=== PATIENT | female | born 1975 | race Caucasian/White ===

== ENCOUNTER 2018-10-29 07:15 | Observation (INO) | payer OTHER ==
[2018-10-29] MEDS ORDERED: ASPIRIN 81 MG PO STA (07:40)
[2018-10-29] MEDS ORDERED: NITROGLYCERIN OINT 1 INCH/GM PACKET TOPICAL STA (07:40)
--- NOTE | 2018-10-29 07:44 | ED ---
General Adult HPI - General Chief complaint: Chest Pain Stated complaint: chest pain Time Seen by Provider: 10/29/18 07:15 Source: patient, RN notes reviewed Mode of arrival: wheelchair Limitations: no limitations - History of Present Illness Initial comments: This is a 43-year-old female who presents emergency department without any significant past medical history. Patient states she does have positive family history of heart disease her father had a heart attack. A 61. Patient states she started having chest pain on Saturday while shopping and it has been occasionally intermittent since then however this morning she woke up and she had extremely heavy and painful left arm she denies any weakness or numbness in the arm chest pain currently shoulder down. Patient states she did not notice any chest pain or heaviness morning. Patient denies any difficulty breathing or shortness of breath. Patient denies any diaphoretic episodes. Patient denies any nausea vomiting. Patient denies any abdominal pain. Patient denies any recent fever chills or cough. Patient denies any leg swelling or calf tenderness. - Related Data Home Medications Medication Instructions Recorded Confirmed Albuterol Sulfate [Proair Hfa] 1 - 2 puff INHALATION RT-QID PRN 10/29/18 10/29/18 Budesonide/Formoterol Fumarate 2 puff INHALATION RT-BID PRN 10/29/18 10/29/18 [Symbicort 160-4.5 Mcg Inhaler] Allergies Allergy/AdvReac Type Severity Reaction Status Date / Time No Known Allergies Allergy Verified 10/29/18 07:24 Review of Systems ROS Statement: Those systems with pertinent positive or pertinent negative responses have been documented in the HPI. ROS Other: All systems not noted in ROS Statement are negative. Past Medical History Past Medical History: No Reported History History of Any Multi-Drug Resistant Organisms: None Reported Past Surgical History: Breast Surgery Additional Past Surgical History / Comment(s): breast augmentation Past Psychological History: No Psychological Hx Reported Smoking Status: Never smoker Past Alcohol Use History: Occasional, Rare Past Drug Use History: None Reported General Exam - General Exam Comments Initial Comments: GENERAL: Patient is well-developed and well-nourished. Patient is nontoxic and well- hydrated and is in distress. ENT: Neck is soft and supple. No significant lymphadenopathy is noted. Oropharynx is clear. Moist mucous membranes. Neck has full range of motion without eliciting any pain. EYES: The sclera were anicteric and conjunctiva were pink and moist. Extraocular movements were intact and pupils were equal round and reactive to light. Eyelids were unremarkable. PULMONARY: Unlabored respirations. Good breath sounds bilaterally. No audible rales rhonchi or wheezing was noted. CARDIOVASCULAR: There is a regular rate and rhythm without any murmurs gallops or rubs. ABDOMEN: Soft and nontender with normal bowel sounds. No palpable organomegaly was noted. There is no palpable pulsatile mass. SKIN: Skin is clear with no lesions or rashes and otherwise unremarkable. NEUROLOGIC: Patient is alert and oriented x3. Cranial nerves II through XII are grossly intact. Motor and sensory are also intact. Normal speech, volume and content. Symmetrical smile. MUSCULOSKELETAL: Normal extremities with adequate strength and full range of motion. No lower extremity swelling or edema. No calf tenderness. LYMPHATICS: No significant lymphadenopathy is noted PSYCHIATRIC: Normal psychiatric evaluation. Limitations: no limitations Course Vital Signs 10/29/18 10/29/18 07:19 07:37 Temperature 97.5 F L Pulse Rate 95 94 Respiratory 16 16 Rate Blood Pressure 144/99 139/87 O2 Sat by Pulse 98 98 Oximetry Medical Decision Making - Medical Decision Making EKG shows a normal sinus rhythm at 80 bpm VT interval is 148 QRSs 84 QT interval 34 QTC is 464. Patient's EKG shows no ST segment elevation or depression or T wave abnormalities are noted. Chest x-ray shows no acute abnormality. I will begin to reevaluate the patient patient stated after she received nitro paste her pain in her arm went away completely. I spoke with sounds physician's and they accepted the patient admitted the [facility] ent wrote admitting orders. I started heparin and continued heparin and aspirin and Nitropaste on the floor. I consulted cardiology - Lab Data Result diagrams: 10/29/18 07:35 10/29/18 07:35 Lab Results 10/29/18 10/29/18 10/29/18 Range/Units 07:35 07:35 07:35 WBC 9.2 (3.8-10.6) k/uL RBC 4.93 (3.80-5.40) m/uL Hgb 12.9 (11.4-16.0) gm/dL Hct 38.9 (34.0-46.0) % MCV 78.9 L (80.0-100.0) fL MCH 26.1 (25.0-35.0) pg MCHC 33.1 (31.0-37.0) g/dL RDW 15.2 (11.5-15.5) % Plt Count 494 H (150-450) k/uL Neutrophils % 72 % Lymphocytes % 19 % Monocytes % 4 % Eosinophils % 2 % Basophils % 1 % Neutrophils # 6.6 (1.3-7.7) k/uL Lymphocytes # 1.8 (1.0-4.8) k/uL Monocytes # 0.4 (0-1.0) k/uL Eosinophils # 0.2 (0-0.7) k/uL Basophils # 0.1 (0-0.2) k/uL PT 9.6 (9.0-12.0) sec INR 0.9 (<1.2) APTT 25.2 (22.0-30.0) sec Sodium 139 (137-145) mmol/L Potassium 4.3 (3.5-5.1) mmol/L Chloride 107 (98-107) mmol/L Carbon Dioxide 21 L (22-30) mmol/L Anion Gap 11 mmol/L BUN 17 (7-17) mg/dL Creatinine 0.66 (0.52-1.04) mg/dL Est GFR (CKD-EPI)AfAm >90 (>60 ml/min/1.73 sqM) Est GFR (CKD-EPI)NonAf >90 (>60 ml/min/1.73 sqM) Glucose 111 H (74-99) mg/dL Calcium 9.2 (8.4-10.2) mg/dL Magnesium 2.3 (1.6-2.3) mg/dL Total Bilirubin 0.5 (0.2-1.3) mg/dL AST 23 (14-36) U/L ALT 25 (9-52) U/L Alkaline Phosphatase 100 (38-126) U/L Troponin I (0.000-0.034) ng/mL Total Protein 7.4 (6.3-8.2) g/dL Albumin 4.3 (3.5-5.0) g/dL 10/29/18 Range/Units 07:35 WBC (3.8-10.6) k/uL RBC (3.80-5.40) m/uL Hgb (11.4-16.0) gm/dL Hct (34.0-46.0) % MCV (80.0-100.0) fL MCH (25.0-35.0) pg MCHC (31.0-37.0) g/dL RDW (11.5-15.5) % Plt Count (150-450) k/uL Neutrophils % % Lymphocytes % % Monocytes % % Eosinophils % % Basophils % % Neutrophils # (1.3-7.7) k/uL Lymphocytes # (1.0-4.8) k/uL Monocytes # (0-1.0) k/uL Eosinophils # (0-0.7) k/uL Basophils # (0-0.2) k/uL PT (9.0-12.0) sec INR (<1.2) APTT (22.0-30.0) sec Sodium (137-145) mmol/L Potassium (3.5-5.1) mmol/L Chloride (98-107) mmol/L Carbon Dioxide (22-30) mmol/L Anion Gap mmol/L BUN (7-17) mg/dL Creatinine (0.52-1.04) mg/dL Est GFR (CKD-EPI)AfAm (>60 ml/min/1.73 sqM) Est GFR (CKD-EPI)NonAf (>60 ml/min/1.73 sqM) Glucose (74-99) mg/dL Calcium (8.4-10.2) mg/dL Magnesium (1.6-2.3) mg/dL Total Bilirubin (0.2-1.3) mg/dL AST (14-36) U/L ALT (9-52) U/L Alkaline Phosphatase (38-126) U/L Troponin I <0.012 (0.000-0.034) ng/mL Total Protein (6.3-8.2) g/dL Albumin (3.5-5.0) g/dL Critical Care Time Critical Care Time: Yes Total Critical Care Time: 35 Disposition Clinical Impression: Unstable angina pectoris Disposition: ADMITTED IP TO THIS [facility] Referrals: None,Stated [Primary Care Provider] - 1-2 days Time of Disposition: 09:14
[2018-10-29 07:58] LABS: Basophils # (A) 0.1 k/uL (0-0.2); Basophils % (A) 1 %; Eosinophils # (A) 0.2 k/uL (0-0.7); Eosinophils % (A) 2 %; HCT 38.9 % (34.0-46.0); HGB 12.9 gm/dL (11.4-16.0); Lymphocytes # (A) 1.8 k/uL (1.0-4.8); Lymphocytes % (A) 19 %; MCH 26.1 pg (25.0-35.0); MCHC 33.1 g/dL (31.0-37.0); MCV 78.9 fL (80.0-100.0); Mean Platelet Volume 7.2; Monocytes # (A) 0.4 k/uL (0-1.0); Monocytes % (A) 4 %; Neutrophils # (A) 6.6 k/uL (1.3-7.7); Neutrophils % (A) 72 %; Platelet Count 494 k/uL (150-450); RBC 4.93 m/uL (3.80-5.40); RDW 15.2 % (11.5-15.5); WBC 9.2 k/uL (3.8-10.6)
[2018-10-29 08:04] LABS: INR 0.9 (<1.2); Partial Thromboplastin Time 25.2 sec (22.0-30.0); Prothrombin Time 9.6 sec (9.0-12.0)
[2018-10-29 08:20] LABS: ALT 25 U/L (9-52); AST 23 U/L (14-36); African American GFR (CKD) >90 (>60 ml/min/1.73 sqM); Albumin 4.3 g/dL (3.5-5.0); Alkaline Phosphatase 100 U/L (38-126); Anion Gap 11 mmol/L; Blood Urea Nitrogen 17 mg/dL (7-17); Calcium 9.2 mg/dL (8.4-10.2); Carbon Dioxide 21 mmol/L (22-30); Chloride 107 mmol/L (98-107); Glucose 111 mg/dL (74-99); Magnesium 2.3 mg/dL (1.6-2.3); Potassium 4.3 mmol/L (3.5-5.1); Sodium 139 mmol/L (137-145); Total Bilirubin 0.5 mg/dL (0.2-1.3); Total Protein 7.4 g/dL (6.3-8.2)
--- NOTE | 2018-10-29 08:27 | XR ---
EXAMINATION TYPE: XR chest 2V DATE OF EXAM: 10/29/2018 COMPARISON: None INDICATION: Chest pain, history of asthma TECHNIQUE: Frontal and lateral views of the chest are obtained. FINDINGS: The heart size is normal. The pulmonary vasculature is normal. The lungs are clear. There is elevation of the right diaphragm. EKG leads overlie the chest. IMPRESSION: 1. No acute pulmonary process.
[2018-10-29] MEDS ORDERED: HEPARIN SODIUM,PORCINE 5,000 UNIT/ML 1 ML VIAL IV ONE (09:12)
[2018-10-29] MEDS ORDERED: NITROGLYCERIN SL TABS 0.4 MG TAB SUBLINGUAL PRN (09:14)
[2018-10-29] MEDS: HEPARIN SOD,PORK IN 0.45% NACL 25,000 UNIT in 0.45% NACL 1 250ML.BAG IV SCH (09:31)
--- NOTE | 2018-10-29 10:52 | P.CRDCN ---
History of Present Illness History of present illness: This is a pleasant 43-year-old female with significant past medical history other than morbid obesity and family history of premature coronary artery disease in her father. We have been asked to see her in consultation secondary to chest discomfort. She states she first developed discomfort in the left precordial region on Saturday was shopping at the grocery store. Then again this morning she woke up with the pain in the left precordial region with radiation into the left shoulder and down the left arm. The left arm felt numb and tingly. Not associated with shortness of breath, dizziness, nausea, vomiting, palpitations or diaphoresis. Currently chest pain free. EKG reveals sinus mechanism heart rate of [address] or T wave abnormalities noted. Chest x-ray negative for an acute cardiopulmonary process. Laboratory data reviewed, platelets 494, sodium 139, potassium 4.3, creatinine 0.66, magnesium 2.3 and troponin negative 1. She takes no daily cardiac medications and has never undergone cardiac stress testing in the past. At the time of my exam: CONSTITUTIONAL: Denies fever. Denies chills. EYES: Denies blurred vision. Denies vision changes. Denies eye pain. EARS, NOSE, MOUTH & THROAT: Denies headache. Denies sore throat. Denies ear pain. CARDIOVASCULAR: Denies chest pain. Denies shortness of breath. Denies orthopnea. Denies PND. Denies palpitations. RESPIRATORY: Denies cough. GASTROINTESTINAL: Denies abdominal pain. Denies diarrhea. Denies constipation. Denies nausea. Denies vomiting. MUSCULOSKELETAL: Denies myalgias. INTEGUMENTARY: Denies pruitis. Denies rash. NEUROLOGIC: Denies numbness. Denies tingling. Denies weakness. PSYCHIATRIC: Denies anxiety. Denies depression. ENDOCRINE: Denies fatigue. Denies weight change. Denies polydipsia. Denies polyurina. GENITOURINARY: Denies burning, hematuria or urgency with micturation. HEMATOLOGIC: Denies history of anemia. Denies bleeding. Blood pressure 128/87 heart rate 87 afebrile maintaining oxygen saturation on nasal cannula GENERAL: This is a 43-year-old female in no apparent distress at the time of my examination. Obese. HEENT: Head is atraumatic, normocephalic. Pupils are equal, round. Sclerae anicteric. Conjunctivae are clear. Mucous membranes of the mouth are moist. Neck is supple. There is no jugular venous distention. No carotid bruit is heard. LUNGS: Clear to auscultation no wheezes, rales or rhonchi. No chest wall tenderness is noted on palpation or with deep breathing. HEART: Regular rate and rhythm without murmurs, rubs or gallops. S1 and S2 heard. ABDOMEN: Soft, nontender. Bowel sounds are heard. No organomegaly noted. EXTREMITIES: No evidence of peripheral edema and no calf tenderness noted. VASCULAR: Radial and dorsalis pedis pulses palpated, no evidence of clubbing. NEUROLOGIC: Patient is awake, alert and oriented x3. ASSESSMENT Chest pain, atypical. Morbid obesity, BMI 42 PLAN Patient is seen and examined sitting up in no acute distress. Currently chest pain-free. Continue to obtain serial cardiac enzymes to rule out an acute event. Check lipid panel. Obtain 2-D echocardiogram and Doppler study to assess cardiac structure and function. Depending and diagnostic tests findings we will move forward with stress testing versus coronary angiography. Nothing by mouth after midnight tonight. Thank you kindly for this consultation. Nurse Practitioner note has been reviewed, I agree with a documented findings and plan of care. Patient was seen and examined. Past Medical History Past Medical History: No Reported History History of Any Multi-Drug Resistant Organisms: None Reported Past Surgical History: Breast Surgery Additional Past Surgical History / Comment(s): breast augmentation Past Psychological History: No Psychological Hx Reported Smoking Status: Never smoker Past Alcohol Use History: Occasional, Rare Past Drug Use History: None Reported Medications and Allergies Home Medications Medication Instructions Recorded Confirmed Type Albuterol Sulfate [Proair Hfa] 1 - 2 puff INHALATION RT-QID PRN 10/29/18 10/29/18 History Budesonide/Formoterol Fumarate 2 puff INHALATION RT-BID PRN 10/29/18 10/29/18 History [Symbicort 160-4.5 Mcg Inhaler] Allergies Allergy/AdvReac Type Severity Reaction Status Date / Time No Known Allergies Allergy Verified 10/29/18 07:24 Physical Exam Vitals: Vital Signs Temp Pulse Resp BP Pulse Ox 10/29/18 09:33 87 16 128/87 98 10/29/18 07:37 94 16 139/87 98 10/29/18 07:19 97.5 F L 95 16 144/99 98 Intake and Output 10/28/18 10/29/18 10/29/18 22:59 06:59 14:59 Other: Weight 117.027 kg Results 10/29/18 07:35 10/29/18 07:35 Cardiac Enzymes 10/29/18 10/29/18 Range/Units 07:35 07:35 AST 23 (14-36) U/L Troponin I <0.012 (0.000-0.034) ng/mL Coagulation 10/29/18 Range/Units 07:35 PT 9.6 (9.0-12.0) sec APTT 25.2 (22.0-30.0) sec CBC 10/29/18 Range/Units 07:35 WBC 9.2 (3.8-10.6) k/uL RBC 4.93 (3.80-5.40) m/uL Hgb 12.9 (11.4-16.0) gm/dL Hct 38.9 (34.0-46.0) % Plt Count 494 H (150-450) k/uL Comprehensive Metabolic Panel 10/29/18 Range/Units 07:35 Sodium 139 (137-145) mmol/L Potassium 4.3 (3.5-5.1) mmol/L Chloride 107 (98-107) mmol/L Carbon Dioxide 21 L (22-30) mmol/L BUN 17 (7-17) mg/dL Creatinine 0.66 (0.52-1.04) mg/dL Glucose 111 H (74-99) mg/dL Calcium 9.2 (8.4-10.2) mg/dL AST 23 (14-36) U/L ALT 25 (9-52) U/L Alkaline Phosphatase 100 (38-126) U/L Total Protein 7.4 (6.3-8.2) g/dL Albumin 4.3 (3.5-5.0) g/dL Current Medications Generic Name Dose Route Start Last Admin Trade Name Freq PRN Reason Stop Dose Admin Aspirin 325 mg 10/30/18 09:00 Aspirin PO DAILY JAYNE Heparin Sodium/Sodium Chloride 250 mls @ 10.006 mls/hr 10/29/18 09:15 10/29/18 09:31 25,000 unit/ Sodium Chloride IV 8.55 units/kg/hr .Q24H JAYNE 10.006 mls/hr Administration Protocol 8.55 UNITS/KG/HR Nitroglycerin 0.4 mg 10/29/18 09:14 Nitrostat SUBLINGUAL Q5M PRN Chest Pain Nitroglycerin 1 inch 10/29/18 12:00 Nitro-Bid Oint TOPICAL Q6HR JAYNE Intake and Output 10/28/18 10/29/18 10/29/18 22:59 06:59 14:59 Other: Weight 117.027 kg Patient Weight 10/30/18 06:59 Weight 117.027 kg 10/29/18 07:35 10/29/18 07:35
--- NOTE | 2018-10-29 12:01 | ECHOF ---
Referral Reason:cp MEASUREMENTS -------- HEIGHT: 165.1 cm WEIGHT: 117.0 kg BP: 128/87 RVIDd: 3.3 cm (< 3.3) IVSd: 1.1 cm (0.6 - 1.1) LVIDd: 4.5 cm (3.9 - 5.3) LVPWd: 1.0 cm (0.6 - 1.1) IVSs: 1.6 cm LVIDs: 3.0 cm LVPWs: 1.5 cm LA Diam: 3.8 cm (2.7 - 3.8) LAESV Index (A-L): 17.06 ml/m Ao Diam: 3.0 cm (2.0 - 3.7) AV Cusp: 2.1 cm (1.5 - 2.6) MV EXCURSION: 18.742 mm (> 18.000) MV EF SLOPE: 91 mm/s (70 - 150) EPSS: 0.6 cm MV E Hans: 0.77 m/s MV DecT: 233 ms MV A Hans: 0.84 m/s MV E/A Ratio: 0.91 FINDINGS -------- Sinus rhythm. This was a technically adequate study. The left ventricular size is normal. There is borderline concentric left ventricular hypertrophy. Overall left ventricular systolic function is normal with, an EF between 60 - 65 %. The right ventricle is normal in size. Normal LA size by volume 22+/-6 ml/m2. The right atrium is normal in size. Aneurysmal Interatrial septum. The aortic valve is trileaflet and appears structurally normal. The mitral valve is normal. The tricuspid valve appears structurally normal. The pulmonic valve was not well visualized. The aortic root size is normal. Normal inferior vena cava with normal inspiratory collapse consistent with estimated right atrial pre ssure of 5 mmHg. There is no pericardial effusion. CONCLUSIONS -------- 1. Sinus rhythm. 2. This was a technically adequate study. 3. The left ventricular size is normal. 4. There is borderline concentric left ventricular hypertrophy. 5. Overall left ventricular systolic function is normal with, an EF between 60 - 65 %. 6. The right ventricle is normal in size. 7. Normal LA size by volume 22+/-6 ml/m2. 8. The right atrium is normal in size. 9. Aneurysmal Interatrial septum. 10. The aortic valve is trileaflet and appears structurally normal. 11. The mitral valve is normal. 12. The tricuspid valve appears structurally normal. 13. The pulmonic valve was not well visualized. 14. The aortic root size is normal. 15. Normal inferior vena cava with normal inspiratory collapse consistent with estimated right atrial pressure of 5 mmHg. 16. There is no pericardial effusion. SUCCESS COACH: Kelli Aburto RDCS
[2018-10-29] MEDS: NITROGLYCERIN OINT 1 INCH/GM PACKET TOPICAL SCH ×3 (13:50→23:20)
[2018-10-29 13:58] VITALS: BMI 42.9
[2018-10-29] MEDS: ACETAMINOPHEN TAB 325 MG TAB PO PRN ×2 (14:41→23:21)
[2018-10-29] MEDS ORDERED: MORPHINE SULFATE 4 MG/ML SYRINGE IV PRN (17:08)
[2018-10-29] MEDS ORDERED: NALOXONE 0.4 MG/ML 1 ML VIAL IV PRN (17:08)
[2018-10-29] MEDS ORDERED: ALBUTEROL NEBULIZED 2.5 MG/3 ML INHALATION PRN (17:09)
--- NOTE | 2018-10-29 17:12 | P.HPIM ---
History of Present Illness H&P Date: 10/29/18 Chief Complaint: chest pain 43-year-old female with PMH of asthma and breast augmentation presents to the ED for chest pain. Patient reports that the pain began on Saturday while she was pushing a grocery cart. She described the pain as heaviness in her chest that lasted for 1-2 minutes.pain was 6-7 out of 10 in severity. Pain was nonradiating. There were no alleviating or aggravating factors. This morning, patient states that she woke up with shooting left arm pain that was persistent. Given that her father passed from an MN in his 60s, patient was worried and pro mpted the patient to go to the ED. Vision denies any headache, lower extremity edema, nausea or vomiting, fever or chills, cough, shortness of breath, palpitations, changes in urination or bowel habits. No changes in appetite or weight. She denies any dizziness, numbness/weakness/tingling of the extremities. In the ED, troponin was less than 0.0122 with EKG showing normal sinus rhythm and low voltage QRS. Chest x-ray was negative. CBC was unremarkable except for platelet count of 494. Cognition panel was negative. CMP showed a bicarbonate of 21, glucose of 111. Patient is admitted for chest pain, rule out acute coronary syndrome, cardiology is consulted. Review of Systems All systems: negative Past Medical History Past Medical History: Asthma Additional Past Medical History / Comment(s): Recently daily headaches, guadarrama's palsey, low back pain with R sided sciatica. History of Any Multi-Drug Resistant Organisms: None Reported Past Surgical History: Breast Surgery Additional Past Surgical History / Comment(s): breast augmentation Past Anesthesia/Blood Transfusion Reactions: No Reported Reaction Smoking Status: Never smoker - Past Family History Mother Family Medical History: COPD, Renal Disease Father Family Medical History: Myocardial Infarction (MN) Additional Family Medical History / Comment(s): Father of a MN at the age of 68yrs. Medications and Allergies Home Medications Medication Instructions Recorded Confirmed Type Albuterol Sulfate [Proair Hfa] 1 - 2 puff INHALATION RT-QID PRN 10/29/18 10/29/18 History Budesonide/Formoterol Fumarate 2 puff INHALATION RT-BID PRN 10/29/18 10/29/18 History [Symbicort 160-4.5 Mcg Inhaler] Allergies Allergy/AdvReac Type Severity Reaction Status Date / Time No Known Allergies Allergy Verified 10/29/18 07:24 Physical Exam Vitals: Vital Signs Temp Pulse Pulse Resp BP BP Pulse Ox 10/29/18 16:00 97.6 F 81 17 119/76 98 10/29/18 14:32 91 17 10/29/18 14:19 97.8 F 91 17 128/81 97 10/29/18 12:06 76 16 130/91 99 10/29/18 09:33 87 16 128/87 98 10/29/18 07:37 94 16 139/87 98 10/29/18 07:19 97.5 F L 95 16 144/99 98 Intake and Output 10/29/18 10/29/18 10/29/18 06:59 14:59 22:59 Other: Voiding Method Toilet Toilet Weight 117.027 kg General: [non toxic], [no distress], [appears at stated age] Derm: [warm], [dry] Head: [atraumatic], [normocephalic], [symmetric] Eyes: [EOMI], [no lid lag], [anicteric sclera] Mouth: [no lip lesion], [mucus membranes moist] Cardiovascular: [S1S2 reg], [no murmur], [positive posterior tibial pulse bilateral], Lungs: [CTA bilateral], [no rhonchi, no rales] , [no accessory muscle use] Abdominal: [soft], [ nontender to palpation], [no guarding], [no appreciable organomegaly] Ext: [no gross muscle atrophy], [no edema], [no contractures] Neuro: [ CN II-XI grossly intact], [no focal neuro deficits] Psych: [Alert], [oriented], [appropriate affect] Results CBC & Chem 7: 10/29/18 07:35 10/29/18 07:35 Labs: Abnormal Lab Results - Last 24 Hours (Table) 10/29/18 10/29/18 Range/Units 07:35 07:35 MCV 78.9 L (80.0-100.0) fL Plt Count 494 H (150-450) k/uL Carbon Dioxide 21 L (22-30) mmol/L Glucose 111 H (74-99) mg/dL Thrombosis Risk Factor Assmnt - Choose All That Apply Any of the Below Risk Factors Present?: Yes Each Factor Represents 1 point: Age 41-60 years, Obesity (BMI >25) Other Risk Factors: No Other congenital or acquired thrombophilia - If yes, enter type in comment: No Thrombosis Risk Factor Assessment Total Risk Factor Score: 2 Thrombosis Risk Factor Assessment Level: Low Risk Assessment and Plan Assessment: Assessment and Plan Chest pain, rule out acute coronary syndrome History of asthma Troponin less than 0.012 with EKG showing normal sinus rhythm with low-voltage QRS. Chest x-ray negative. Echocardiogram shows EF 60-65% with borderline LVH. Plans: Trend troponin/EKG to rule out ACS. Cardiology consulted, recommends possible stress tomorrow, nothing by mouth after midnight. Telemetry monitoring. Pain control with Tylenol or nitro patch, morphine as needed. Continue aspirin and heparin drip. Plans: Albuterol neb as needed for shortness of breath and wheezing. DVT prophylaxis: [Heparin drip] Discussed with: [Patient and family] Anticipated discharge: [1-2 days] Anticipated discharge place: [Home] A total of [45] minutes was spent on the care of this complex patient more than 50% of the time was spent in counseling and care coordination. Patient would like to remain full code at this time.
[2018-10-29] MEDS: HEPARIN SODIUM,PORCINE 5,000 UNIT/ML 1 ML VIAL IV PRN ×2 (17:39→19:27)
[2018-10-29 20:00] VITALS: RESP 18
[2018-10-30] MEDS: HEPARIN SOD,PORK IN 0.45% NACL 25,000 UNIT in 0.45% NACL 1 250ML.BAG IV SCH (04:25)
[2018-10-30] MEDS: NITROGLYCERIN OINT 1 INCH/GM PACKET TOPICAL SCH (04:27)
[2018-10-30 04:30] LABS: Cholesterol 203 mg/dL (<200); HDL Cholesterol 53 mg/dL (40-60); LDL Cholesterol,Calculated 137 mg/dL (0-99); Triglycerides 67 mg/dL (<150)
[2018-10-30] MEDS: ACETAMINOPHEN TAB 325 MG TAB PO PRN (08:32)
[2018-10-30] MEDS ORDERED: ASPIRIN 81 MG PO SCH (09:00)
[2018-10-30] MEDS ORDERED: ASPIRIN 325 MG TAB PO SCH (09:00)
--- NOTE | 2018-10-30 11:50 | P.PN ---
Subjective This is a pleasant 43-year-old female with significant past medical history other than morbid obesity and family history of premature coronary artery disease in her father. We have been asked to see her in consultation secondary to chest discomfort. Patient was seen and examined in no acute distress. She denies any further symptoms of chest discomfort. Serial cardiac enzymes are negative for ischemia. Echocardiogram reveals preserved LV systolic function with ejection fraction 60-65%. Blood pressure 128/79 heart rate 91 afebrile and maintaining oxygen saturation on room air. GENERAL: This is a 43-year-old female in no apparent distress at the time of my examination. Obese. HEENT: Head is atraumatic, normocephalic. Pupils are equal, round. Sclerae anicteric. Conjunctivae are clear. Mucous membranes of the mouth are moist. Neck is supple. There is no jugular venous distention. No carotid bruit is heard. LUNGS: Clear to auscultation no wheezes, rales or rhonchi. No chest wall tenderness is noted on palpation or with deep breathing. HEART: Regular rate and rhythm without murmurs, rubs or gallops. S1 and S2 heard. EXTREMITIES: No evidence of peripheral edema and no calf tenderness noted. ASSESSMENT Chest pain, atypical. An acute coronary event is ruled out. Discontinue heparin infusion. Morbid obesity, BMI 42 PLAN Proceed with stress echocardiogram to assess for stress induced ischemia. If normal she may be discharged from a cardiac perspective. Nurse Practitioner note has been reviewed, I agree with a documented findings and plan of care. Patient was seen and examined. Objective - Vital Signs Vital signs: Vital Signs Temp 98.0 F 10/30/18 07:05 Pulse 91 10/30/18 08:00 Resp 18 10/30/18 08:00 BP 128/79 10/30/18 07:05 Pulse Ox 99 10/30/18 07:05 Intake & Output 10/29/18 10/30/18 10/30/18 18:59 06:59 18:59 Intake Total 81.549 168.451 Balance 81.549 168.451 Weight 117.027 kg Intake: Intake, IV Titration 81.549 168.451 Amount Heparin Sod,Pork in 0.45% 81.549 168.451 NaCl 25,000 unit In 0.45 % NaCl 1 250ml.bag @ 8.55 UNITS/KG/HR 10.006 mls/ hr IV .Q24H [facility] Rx#: [id number] Other: Voiding Method Toilet Toilet Toilet # Voids 1 1 - Labs CBC & Chem 7: 10/29/18 07:35 10/29/18 07:35 Labs: Abnormal Lab Results - Last 24 Hours (Table) 10/29/18 10/30/18 Range/Units 03:49 01:59 APTT 56.2 H (22.0-30.0) sec Cholesterol 203 H (<200) mg/dL LDL Cholesterol, Calc 137 H (0-99) mg/dL
[2018-10-30 12:14] VITALS: BP 133/91; PULSE 98; TEMP 97.4
--- NOTE | 2018-10-30 13:37 | P.DS ---
Providers Date of admission: 10/29/18 09:16 Expected date of discharge: 10/30/18 Attending physician: Mimi Franklin MD Consults: 10/29/18 09:14 Consult Physician Urgent Consulting Provider: [facility] Consult Reason/Comments: Unstable angina Do you want consulting provider notified?: Yes Primary care physician: Stated None Hospital Course: 43-year-old female with PMH of asthma and breast augmentation presents to the ED for chest pain. Patient reports that the pain began on Saturday while she was pushing a grocery cart. She described the pain as heaviness in her chest that lasted for 1-2 minutes.pain was 6-7 out of 10 in severity. Pain was nonradiating. There were no alleviating or aggravating factors. This morning, patient states that she woke up with shooting left arm pain that was persistent. Given that her father passed from an AL in his 60s, patient was worried and prompted the patient to go to the ED. Vision denies any headache, lower ex tremity edema, nausea or vomiting, fever or chills, cough, shortness of breath, palpitations, changes in urination or bowel habits. No changes in appetite or weight. She denies any dizziness, numbness/weakness/tingling of the extremities. In the ED, troponin was less than 0.0122 with EKG showing normal sinus rhythm and low voltage QRS. Chest x-ray was negative. CBC was unremarkable except for platelet count of 494. Cognition panel was negative. CMP showed a bicarbonate of 21, glucose of 111. Patient is admitted for chest pain, rule out acute coronary syndrome, cardiology is consulted. Troponin was less than 0.0123 with EKG showing normal sinus rhythm. Echocardiogram showed EF 60-65% with borderline concentric LVH. Stress test was done and was negative. Cardiology was consulted and cleared the patient for discharge. Patient seen and examined. No acute events overnight. Patient denies any chest pain, shortness of breath or palpitations. General: [non toxic], [no distress], [appears at stated age] Derm: [warm], [dry] Head: [atraumatic], [normocephalic], [symmetric] Eyes: [EOMI], [no lid lag], [anicteric sclera] Mouth: [no lip lesion], [mucus membranes moist] Cardiovascular: [S1S2 reg], [no murmur], [positive DP pulse bilateral] Lungs: [CTA bilateral], [no rhonchi, no rales] , [no accessory muscle use] Abdominal: [soft], [ nontender to palpation], [no guarding], [no appreciable organomegaly] Ext: [no gross muscle atrophy], [no edema], [no contractures] Neuro: [no focal neuro deficits] Psych: [Alert], [oriented], [appropriate affect] Assessment and Plan Chest pain, rule out acute coronary syndrome History of asthma Troponin less than 0.012 x 3 with EKG showing normal sinus rhythm with low- voltage QRS. Chest x-ray negative. Echocardiogram shows EF 60-65% with borderline LVH. Stress test negative. Plans: ACS ruled out. Telemetry monitoring. Pain control with Tylenol as needed. Continue aspirin and DC heparin drip. Plans: Albuterol neb as needed for shortness of breath and wheezing. Stress test negative. Patient cleared for discharge. Pertinent Studies: Chest x-ray, echocardiogram, stress test Patient Condition at Discharge: Stable Plan - Discharge Summary Discharge Rx Participant: No New Discharge Prescriptions: Continue Budesonide/Formoterol Fumarate [Symbicort 160-4.5 Mcg Inhaler] 2 puff INHALATION RT-BID PRN PRN Reason: Shortness Of Breath Albuterol Sulfate [Proair Hfa] 1 - 2 puff INHALATION RT-QID PRN PRN Reason: Shortness Of Breath Discharge Medication List Albuterol Sulfate [Proair Hfa] 1 - 2 puff INHALATION RT-QID PRN 10/29/18 [Histor y] Budesonide/Formoterol Fumarate [Symbicort 160-4.5 Mcg Inhaler] 2 puff INHALATION RT-BID PRN 10/29/18 [History] Follow up Appointment(s)/Referral(s): None,Stated [Primary Care Provider] - 1-2 days Activity/Diet/Wound Care/Special Instructions: Diet: Heart healthy Follow-up PCP within 1-2 days of discharge. Discharge Disposition: HOME SELF-CARE
--- NOTE | 2018-11-06 08:14 | ECHOS ---
STRESS ECHOCARDIOGRAM INDICATIONS: Chest pain. MEDICATIONS: BASELINE HEART RATE: 84 BASELINE BLOOD PRESSURE: 118/53 MAXIMUM HEART RATE: 166 MAXIMUM BLOOD PRESSURE: 164/56 85% MPHR: 150 100% MPHR: 176 METS: 9.5 MAXIMUM STAGE REACHED: III TOTAL EXERCISE TIME: 8 minutes CLINICAL INFORMATION: Chest pain. CLINICAL INFORMATION: STRESS DATA: Heart rate 84, pressure is 118/53 mmHg. Baseline EKG showed sinus mechanism. The patient exercised on the treadmill according to Tommy protocol for a total of 8 minutes and achieved 9.5 METs. Max heart rate was 166 which is about 90% of maximum predicted heart rate. Maximum blood pressure was 164/56 mmHg. Clinically the patient did not have any symptoms of chest pain or discomfort. The EKG was difficult to interpret because of the extensive baseline artifact, but there was no obvious wall motion abnormalities or ST changes concerning for ischemia. ECHOCARDIOGRAM IMAGES: On echocardiogram images the parasternal long axis view, parasternal short axis, apical 4 chamber and apical 2 chamber were obtained as the baseline images, at the peak of the heart rate as well as on recovery and the echo showed good augmentation in the left ventricular systolic function. CONCLUSION: 1. Excellent exercise tolerance. 2. Normal EKG in response to exercise. 3. Normal echocardiogram in response to exercise. MMODL / IJN: [id number] /
== END 2018-10-30 14:05 | disposition home or self-care (01) ==
LOC: EC 07:15 → 1SOBS 09:16
PROVIDERS: ADMIT Family Medicine; ATTEND Family Medicine
DX: R07.2 Precordial pain (principal); R20.0 Anesthesia of skin; R20.2 Paresthesia of skin; M79.602 Pain in left arm; R51 Headache; J45.909 Unspecified asthma, uncomplicated; E66.01 Morbid (severe) obesity due to excess calories; Z68.41 Body mass index [BMI] 40.0-44.9, adult; G51.0 Bell's palsy; M54.41 Lumbago with sciatica, right side; Z98.82 Breast implant status; Z79.51 Long term (current) use of inhaled steroids; Z82.5 Family history of asthma and other chronic lower respiratory diseases; Z82.49 Family history of ischemic heart disease and other diseases of the circulatory system; Z84.1 Family history of disorders of kidney and ureter
CPT/HCPCS: 96366 ×3; 96376 ×2; 96365; 99291; 36415; 94760; 93005; 93306; 93351; 80061; 80053; 83735; 84484; 85025; 85610; 85730 ×2; 71046; G0378 ×2; J1644 ×3

== ENCOUNTER → 2019-11-18 | Outpatient (CLI) | payer OTHER ==
--- NOTE | 2019-11-18 12:13 | MM ---
Reason for exam: clinical finding. Baseline mammogram. History: Pre-pectoral saline implants in both breasts, 2008. Indicated problem(s): breast implant problem in both breasts. Physical Findings: Nurse Summary: Patient complains of 6 month to 1 year bilateral breasts red streaks now bilateral pain, streaks with right breast rash this morning (nurse ts). MG 3D Diag Mammo Imp W/Cad DO Bilateral CC, MLO, and ID view(s) were taken. Finding: There is a typically benign 6 mm high density, circumscribed round mass located 9 cm from the nipple in the lower inner quadrant of the left breast. Focal distortion 6cm from the nipple left upper outer quadrant. Persistent on compression tomosynthesis. These results were verbally communicated with the patient and result sheet given to the patient on 11/18/19. ASSESSMENT: Incomplete: need additional imaging evaluation, BI-RAD 0 RECOMMENDATION: Ultrasound of both breasts.
--- NOTE | 2019-11-18 12:15 | USB ---
Reason for exam: additional evaluation requested from abnormal screening. History: Pre-pectoral saline implants in both breasts, 2009. US Breast BILAT Right complete breast ultrasound includes all four quadrants, the retroareolar region and axilla. Finding demonstrates no cystic or solid lesion seen. Left complete breast ultrasound includes all four quadrants, the retroareolar region and axilla. Finding demonstrates a 6 x 7 x 6mm irregular, hypoechoic lesion at 7 o'clock, 8cm from nipple. These results were verbally communicated with the patient and result sheet given to the patient on 11/18/19. ASSESSMENT: Suspicious, BI-RAD 4 RECOMMENDATION: Ultrasound core biopsy of the left breast. (7 o'clock) Stereotactic core biopsy of the left breast. (1 o'clock distortion, need 3D stereotactic core biopsy) Called Dr. Kidd's office with mammographic findings and has scheduled an appointment for the patient for 12/11/19 at 1:[address] Liu. PRELIMINARY REPORT CALLED AND FAXED TO DR. LIU ON 11/18/19.
== END | disposition home or self-care (01) ==
LOC: RADMAMWWP 07:23
PROVIDERS: ATTEND Internal Medicine
DX: R92.8 Other abnormal and inconclusive findings on diagnostic imaging of breast (principal); T85.9XXA Unspecified complication of internal prosthetic device, implant and graft, initial encounter
CPT/HCPCS: 77062; 77066

== ENCOUNTER → 2020-05-31 | Outpatient (CLI) | payer OTHER | END | disposition home or self-care (01) | LOC: LABWHC1 16:47 | PROVIDERS: ATTEND Internal Medicine Hematology & Oncology | DX: U07.1 COVID-19 (principal) | CPT/HCPCS: U0003; C9803 ==

== ENCOUNTER → 2020-08-05 | Outpatient (CLI) | payer OTHER | END | disposition home or self-care (01) | LOC: LABWHC1 10:17 | PROVIDERS: ATTEND Radiology Radiation Oncology | DX: C50.412 Malignant neoplasm of upper-outer quadrant of left female breast (principal); Z17.0 Estrogen receptor positive status [ER+] | CPT/HCPCS: 81025 ==

== ENCOUNTER → 2020-09-12 | Outpatient (CLI) | payer OTHER ==
[2020-09-12 09:14] LABS: Basophils # (A) 0.1 k/uL (0-0.2); Basophils % (A) 1 %; Eosinophils # (A) 0.3 k/uL (0-0.7); Eosinophils % (A) 4 %; HCT 35.8 % (34.0-46.0); HGB 11.3 gm/dL (11.4-16.0); Hypochromasia Slight; Lymphocytes # (A) 1.2 k/uL (1.0-4.8); Lymphocytes % (A) 17 %; MCH 23.6 pg (25.0-35.0); MCHC 31.7 g/dL (31.0-37.0); MCV 74.6 fL (80.0-100.0); Mean Platelet Volume 6.5; Microcytosis Slight; Monocytes # (A) 0.4 k/uL (0-1.0); Monocytes % (A) 5 %; Neutrophils # (A) 5.1 k/uL (1.3-7.7); Neutrophils % (A) 71 %; Platelet Count 448 k/uL (150-450); RDW 15.5 % (11.5-15.5); WBC 7.2 k/uL (3.8-10.6)
[2020-09-12 09:30] LABS: African American GFR (CKD) >90 (>60 ml/min/1.73 sqM); Anion Gap 9 mmol/L; Blood Urea Nitrogen 21 mg/dL (7-17); Carbon Dioxide 26 mmol/L (22-30); Chloride 103 mmol/L (98-107); Glucose 115 mg/dL (74-99); Non-African American GFR(CKD) >90 (>60 ml/min/1.73 sqM); Potassium 4.2 mmol/L (3.5-5.1); Sodium 138 mmol/L (137-145)
== END | disposition home or self-care (01) ==
LOC: LABPAT 08:38
PROVIDERS: ATTEND Obstetrics & Gynecology
DX: Z01.812 Encounter for preprocedural laboratory examination (principal)
CPT/HCPCS: 36415; 80048; 85025

== ENCOUNTER → 2020-09-20 | Outpatient (CLI) | payer OTHER | END | disposition home or self-care (01) | LOC: LABPAT 08:05 | PROVIDERS: ATTEND Anesthesiology | DX: Z01.818 Encounter for other preprocedural examination (principal); R00.0 Tachycardia, unspecified | CPT/HCPCS: 93005 ==

== ENCOUNTER 2020-09-22 06:21 | Day surgery (SDC) | payer OTHER ==
--- NOTE | 2020-09-14 17:18 | P.HPOB ---
History of Present Illness H&P Date: 09/14/20 Chief Complaint: Hormone positive breast cancer Patient is a 45-year-old female hormone positive breast cancer by history hematology/oncology is recommending a bilateral salpingo-oophorectomy. She is scheduled for same with da Aniya assisted. Risks/benefits/alternatives to this procedure were reviewed with the patient in detail and all questions were answered for her prior to proceeding to the operative room. Risks did include but were not limited to bleeding and infection, damage to bladder or bowel, vascular injuries, nerve injuries, potential ureteral injuries. Description of the surgery was also performed with the patient and all questions are answered. She is stable prior to surgery. Past Medical History Past Medical History: Asthma Additional Past Medical History / Comment(s): Recently daily headaches, guadarrama's palsey, low back pain with R sided sciatica. History of Any Multi-Drug Resistant Organisms: None Reported Past Surgical History: Breast Surgery Additional Past Surgical History / Comment(s): breast augmentation Past Anesthesia/Blood Transfusion Reactions: No Reported Reaction Past Psychological History: No Psychological Hx Reported Additional Psychological History / Comment(s): Pt resides with her boyfriend and one of her 2 daughters, the other angela is away at college. Pt is independent. Past Alcohol Use History: Rare Past Drug Use History: None Reported - Past Family History Mother Family Medical History: COPD, Renal Disease Father Family Medical History: Myocardial Infarction (AL) Additional Family Medical History / Comment(s): Father of a AL at the age of 68yrs. Medications and Allergies Home Medications Medication Instructions Recorded Confirmed Type Albuterol Sulfate [Proair Hfa] 1 - 2 puff INHALATION RT-QID PRN 10/29/18 10/29/18 History Budesonide/Formoterol Fumarate 2 puff INHALATION RT-BID PRN 10/29/18 10/29/18 History [Symbicort 160-4.5 Mcg Inhaler] Allergies Allergy/AdvReac Type Severity Reaction Status Date / Time No Known Allergies Allergy Verified 10/29/18 07:24 Exam Osteopathic Statement: *. No significant issues noted on an osteopathic structural exam other than those noted in the History and Physical/Consult. - OBG Physical Exam Breast: both: normal (no masses) Abdomen: Obese Abdomen: bowel sounds normal, no diffuse tenderness, no bruit present, no guarding noted, no hepatomegaly, no splenomegaly, no mass Vulva: both: normal Vagina: normal moisture, no discharge Cervix: no lesion, no discharge Uterus: normal size, normal contour Adnexa: both: normal Anus/Rectum: normal perianal skin, no rectal mass, no hemorrhoids, heme negative
[2020-09-19 11:36] VITALS: BMI 43.2
[2020-09-22] MEDS ORDERED: HYDROmorphone 0.5 MG/0.5 ML SYRINGE IVP PRN ×3 (07:00→10:59)
[2020-09-22] MEDS ORDERED: FAMOTIDINE 20 MG/2 ML VIAL IV PRN (07:00)
[2020-09-22] MEDS: LACTATED RINGERS 1,000 ML IV SCH ×3 (07:09→10:14)
[2020-09-22] MEDS ORDERED: ONDANSETRON 4 MG/2 ML VIAL ONE ×2 (07:12→08:43)
[2020-09-22] MEDS ORDERED: ONDANSETRON 4 MG/2 ML VIAL IVP ONE ×2 (07:20→08:49)
[2020-09-22] MEDS ORDERED: DEXAMETHASONE SOD PHOSPHATE 4 MG/ML 1 ML VIAL IVP ONE (07:21)
[2020-09-22] MEDS ORDERED: SCOPOLAMINE 1.5MG/72HR PATCH TRANSDERM ONE (07:21)
[2020-09-22] MEDS ORDERED: GLYCOPYRROLATE 0.2 MG/ML 2 ML VIAL ONE (07:25)
[2020-09-22] MEDS ORDERED: HYDROmorphone (PF) 1 MG/ML ONE (07:25)
[2020-09-22] MEDS ORDERED: fentaNYL (PF) 50 MCG/ML 2 ML AMP ONE (07:25)
[2020-09-22] MEDS ORDERED: MIDAZOLAM 2 MG/2 ML VIAL ONE (07:25)
[2020-09-22] MEDS ORDERED: PROPOFOL 10 MG/ML 20 ML VIAL IV ONE (07:25)
[2020-09-22] MEDS ORDERED: SUCCINYLCHOLINE CHLORIDE 100 MG/5 ML SYR IV ONE (07:25)
[2020-09-22] MEDS ORDERED: KETOROLAC 15 MG/ML 1 ML VIAL ONE (07:25)
[2020-09-22] MEDS ORDERED: LIDOCAINE 1% INJ 10MG/ML (20 ML MDV) ONE (07:25)
[2020-09-22] MEDS ORDERED: NEOSTIGMINE 1 MG/ML 10 ML VIAL ONE (07:25)
[2020-09-22] MEDS ORDERED: ROCURONIUM 10 MG/ML (5 ML VIAL) IV ONE (07:25)
[2020-09-22] MEDS ORDERED: BUPIVACAINE (PF) 0.25% 30 ML VIAL SQ ONE ×2 (08:15)
[2020-09-22] MEDS ORDERED: diphenhydrAMINE 50 MG/ML 1 ML VIAL ONE (08:46)
[2020-09-22] MEDS ORDERED: diphenhydrAMINE 50 MG/ML 1 ML VIAL IVP ONE (08:49)
[2020-09-22] MEDS ORDERED: SIMETHICONE 80 MG CHEWABLE PO PRN (09:47)
[2020-09-22] MEDS ORDERED: ONDANSETRON 4 MG/2 ML VIAL IVP PRN (09:47)
--- NOTE | 2020-09-22 09:52 | P.OP ---
Date of Procedure: 09/22/20 Preoperative Diagnosis: Breast cancer hormone responsive Postoperative Diagnosis: Same Procedure(s) Performed: Robotic-assisted laparoscopic bilateral salpingo-oophorectomy Anesthesia: RACHEL Surgeon: Jos Blackburn [employer] Supervisor #1: Leela Ott Estimated Blood Loss (ml): 10 Pathology: other (Ovaries and fallopian tubes) Condition: stable Disposition: floor Operative Findings: Normal anatomy Description of Procedure: Patient was taken to the operating suite where a general anesthetic was found be adequate. She was prepped and draped in the normal sterile fashion and placed in the dorsal lithotomy position. Initially a weighted speculum was inserted in the vagina and the anterior lip of the cervix identified and grasped single- toothed tenaculum. Cervix was then dilated and uterus was sounded to 9 cm. Uterine manipulator was then inserted without difficulty other incidents removed and a Saldana catheter was placed. Gloves were then changed and attention was turned to the abdominal portion procedure where 2 mL of quarter Marcaine was injected periumbilically. Through this injected anesthetic a 5 mm skin incision was made, and through this incision under direct visualization with an optical trocar and sleeve the camera was inserted. Once peritoneal placement was assured gas was allowed to fully insufflate the abdomen and patient was then placed in steep Trendelenburg position. 2 lateral ports were then placed 10 cm lateral to the umbilicus and slightly inferior to the umbilicus these were through 8 mm skin incisions and robotic ports were placed. A fourth port and sleeve was then inserted through the left upper abdomen between the left lateral and medial ports and the umbilical port was exchanged for robotic port. Robot was then brought in and docked. Once fully docked a a Metzenbaum was used to t he one arm and a [place] grasper in the 3R. At this point we did break scrub and go to the console. Observations [place] noted. No significant pathology was noted therefore uterus was elevated and first the left fallopian tube and ovary complex was elevated in the utero-ovarian bleeding was cauterized and transected moving laterally through the mesosalpinx and paraovarian tissues were cauterized and transected ultimately removing the ovary and fallopian tube. Attention was then turned to the right ovary and tube which in a similar fashion was excised. Each ovary and tube was then placed in a gallbladder bag and removed from the operative field. Pelvis then irrigated making sure that the pedicles were hemostatic. Once this completed all the cells were removed and gas. Expel from the abdomen. 5 deep breaths were provided during this period. Once all incidents removed and robot was brought out of the operative field the skin incisions were closed with 4-0 Vicryl subcuticularly. Sponge, lap, needle counts were all correct 2. Patient was then taken to the recovery room in stable and satisfactory condition.
[2020-09-22 10:45] VITALS: RESP 18
[2020-09-22] MEDS: KETOROLAC 15 MG/ML 1 ML VIAL IVP PRN (11:00)
--- NOTE | 2020-09-22 16:43 | P.PN ---
Progress Note - Text Progress Note Date: 09/22/20 Stub day 0. Patient is doing very well this afternoon. She is ambulating, voiding and she is tolerating a diet. We'll plan continue care for trista with discharged home in the morning. All other questions are answered for her and she is otherwise stable this time.
[2020-09-23] MEDS: KETOROLAC 15 MG/ML 1 ML VIAL IVP PRN (04:21)
[2020-09-23] MEDS: LACTATED RINGERS 1,000 ML IV SCH ×2 (06:05→08:09)
[2020-09-23 08:53] VITALS: BP 110/75; PULSE 97; TEMP 97.6
--- NOTE | 2020-09-23 08:59 | P.DS ---
Providers Expected date of discharge: 09/23/20 Attending physician: Jos Blackburn Primary care physician: [facility] Hospital Course: Patient is doing very well postop day 1. She is ambulating, voiding and she is tolerating her diet. She voices no complaints and is passing flatus at this time. Prescriptions for pain medication or for to her pharmacy and discharge instructions were thoroughly reviewed. Otherwise her vital signs are stable and afebrile. Heart regular, lungs clear, extremities without pain. Abdomen is soft and bowel sounds are noted. Incisions are intact. Assessment postop day 1. Plan discharged home follow up with me in 1 week. 10 days. Patient Condition at Discharge: Good Plan - Discharge Summary Discharge Rx Participant: Yes New Discharge Prescriptions: New Ibuprofen [Motrin] 600 mg PO Q6HR PRN #30 tab PRN Reason: Pain HYDROcodone/APAP 5-325MG [[place] 5-325] 1 tab PO Q4HR PRN #20 tab PRN Reason: Pain No Action Cholecalciferol [Vitamin D3 (25 Mcg = 1000 Iu)] 50 mcg PO DAILY Acetaminophen [Tylenol] 500 - 1,000 mg PO Q4-6H PRN PRN Reason: Pain Melatonin 10 mg PO HS Calcium Carbonate [Calcium] 2,400 mg PO DAILY Discharge Medication List Acetaminophen [Tylenol] 500 - 1,000 mg PO Q4-6H PRN 09/19/20 [History] Calcium Carbonate [Calcium] 2,400 mg PO DAILY 09/19/20 [History] Cholecalciferol [Vitamin D3 (25 Mcg = 1000 Iu)] 50 mcg PO DAILY 09/19/20 [History] Melatonin 10 mg PO HS 09/19/20 [History] HYDROcodone/APAP 5-325MG [[place] 5-325] 1 tab PO Q4HR PRN #20 tab 09/23/20 [Rx] Ibuprofen [Motrin] 600 mg PO Q6HR PRN #30 tab 09/23/20 [Rx] Follow up Appointment(s)/Referral(s): Jos Blackburn DO [Doctor of Osteopathic Medicine] - 10 Days Patient Instructions/Handouts: *Surgery [facility] - Scopalamine Patch Instructions Activity/Diet/Wound Care/Special Instructions: No heavy lifting, limit stairs and driving, pelvic rest. If any high temperatures, heavy bleeding, or severe pain call my office Discharge Disposition: HOME SELF-CARE
== END 2020-09-23 10:00 | disposition home or self-care (01) ==
LOC: OR 06:21 → 6PED 09:05 → OR 09-23 10:00
PROVIDERS: ATTEND Obstetrics & Gynecology
DX: C50.919 Malignant neoplasm of unspecified site of unspecified female breast (principal); Z17.0 Estrogen receptor positive status [ER+]; J45.909 Unspecified asthma, uncomplicated; N83.02 Follicular cyst of left ovary; N83.01 Follicular cyst of right ovary
CPT/HCPCS: 81025; 86900; 86901; 86850; 58661; J2250; J1200; J1100; J2710; J0690; J2405; J2001; J3010; J1170 ×2; J1885 ×2; J0330; J2704; 88305

== ENCOUNTER → 2020-11-28 | Outpatient (CLI) | payer OTHER ==
--- NOTE | 2020-11-28 13:24 | BD ---
EXAMINATION TYPE: Axial Bone Density DATE OF EXAM: 11/28/2020 COMPARISON: NONE CLINICAL HISTORY: 45 YR OLD FEMALE.....ICD-10 CODE: Z78.890 POST MENOPAUSAL. Height: 65 Weight: 271 FRAX RISK QUESTIONS: Glucocorticoids (More than 3mos): YES, IN THE PAST (Ex: prednisone, prednisolone, methylprednisolone, dexamethasone, and hydrocortisone). 3. Menopause before 45: AT AGE 45, REMOVAL OF OVARIES, BR CANCER RISK FACTORS HISTORY OF: Postmenopausal woman: YES AT AGE 45 YRS OLD, SURGICAL, HX LT BREAST CA ON ANASTRAZOLE Hyperparathyroidism: NO Adrenal Insufficiency: NO MEDICATIONS: Prednisone or other steroids: YES, FOR ASTHMA, BUT NOT FOR ABOUT A YR, How Long: PREDNISONE, NOTHING SINCE JUNE 2020 Additional Medications: HX OF CHEMO AND RADIATION FOR BREAST CANCER, LT BR, REFLUX MEDS, VIT D AND CA LCIUM.... Additional History: ASTHMA, LT BREAST CANCER, REFLUX, BILAT NUMBNESS, STOPPED CHEMO IN JULY 2020, SLEE P APNEA. EXAM MEASUREMENTS: Bone mineral densitometry was performed using the [employer] System. Bone mineral density as measured about the Lumbar spine is: ----- L1-L4(G/cm2): 1.101 T Score Values are as follows: ----- L1: -0.7 ----- L2: -0.7 ----- L3: -0.4 ----- L4: -0.9 ----- L1-L4: -0.7 Bone mineral density FIRST DEXA STUDY, BASELINE STUDY Bone mineral density about the R hip (g/cm2): 1.041 Bone mineral density about the L hip (g/cm2): 1.057 T Score values are as follows: -----R Neck: -0.7 -----L Neck: -1.0 -----R Total: 0.3 -----L Total: 0.4 Bone mineral density BASELINE STUDY FRAX%s: THERE IS A 4.3% CHANCE FOR A MAJOR OSTEOPOROTIC FX AND A 0.2% FOR HIP.....PROBABILITY FOR FX IN 10 YRS TIME IMPRESSION: Normal (Values between +1 and -1 indicate normal bone mass). Consider repeating this study in 5 year s or sooner if there is some new clinical indication. NOTE: T-SCORE=SD OF THE YOUNG ADULT MEAN.
== END | disposition home or self-care (01) ==
LOC: RADBDWWP 09:56
PROVIDERS: ATTEND Internal Medicine Hematology & Oncology
DX: Z78.0 Asymptomatic menopausal state (principal); Z85.3 Personal history of malignant neoplasm of breast; Z79.52 Long term (current) use of systemic steroids
CPT/HCPCS: 77080

== ENCOUNTER → 2021-01-20 | Outpatient (CLI) | payer OTHER ==
--- NOTE | 2021-01-20 10:59 | CT ---
EXAMINATION TYPE: CT abdomen w con DATE OF EXAM: 01/20/2021 HISTORY: Hepatic Cyst, abnormal outside ultrasound. CT DLP: 2168.60mGycm Automated Exposure Control for Dose Reduction was Utilized. CONTRAST: CT scan of the abdomen only is performed with oral and with IV Contrast, patient injected with 100 mL of Isovue 300. COMPARISON: None at this institution FINDINGS: LUNG BASES: No significant abnormality is appreciated. LIVER/GB: Visualized liver is heterogeneously hypodense consistent with diffuse fatty infiltration. T here are approximately 6-8 scattered hypodense lesions majority subcentimeter in size too small to fu rther characterize but presumably benign. In the anterior left hepatic dome there is 2.0 cm lesion wi th Hounsfield units averaging under 15 consistent with benign simple thin-walled cyst. No concerning solid or cystic mass. No biliary dilatation identified. PANCREAS: No significant abnormality is seen. SPLEEN: No significant abnormality is seen. ADRENALS: No significant abnormality is seen. KIDNEYS: No significant abnormality is seen. BOWEL: Oral contrast was not reached colonic level. No suspicious small or large bowel dilatation. LYMPH NODES: No greater than 1cm abdominal lymph nodes are appreciated. OSSEOUS STRUCTURES: Mild facet arthropathy lower lumbar levels. OTHER: No significant additional abnormality is seen. IMPRESSION: There is 2.0 cm simple appearing thin-walled cyst in the anterior left hepatic dome. Ther e are several subcentimeter hypodense lesions presumed benign. No concerning solid or cystic intrahep atic mass seen on CT.
== END | disposition home or self-care (01) ==
LOC: RADCTMAIN 09:00
PROVIDERS: ATTEND Internal Medicine Hematology & Oncology
DX: K76.89 Other specified diseases of liver (principal)
CPT/HCPCS: 74160; Q9967

== ENCOUNTER 2021-02-21 07:21 | Day surgery (SDC) | payer OTHER ==
[2021-02-17 13:39] VITALS: BMI 39.9
[2021-02-21] MEDS ORDERED: LACTATED RINGERS 1,000 ML IV SCH (07:35)
[2021-02-21] MEDS ORDERED: LIDOCAINE 1% (10MG/ML) FOR IV START INTRADERMA PRN (07:35)
[2021-02-21 07:39] VITALS: RESP 16; TEMP 97
[2021-02-21] MEDS ORDERED: LACTATED RINGERS 1,000 ML IV ONE (07:45)
[2021-02-21] MEDS ORDERED: PROPOFOL 10 MG/ML 20 ML VIAL IV ONE (09:46)
--- NOTE | 2021-02-21 09:59 | P.PCN ---
Date of Procedure: 02/21/21 Procedure(s) Performed: BRIEF HISTORY: Patient is a 45-year-old pleasant female scheduled for an elective colonoscopy as a part of screening for colorectal neoplasia . PROCEDURE PERFORMED: Colonoscopy. PREOPERATIVE DIAGNOSIS: Screening for colon cancer. IV sedation per Anesthesia. PROCEDURE: After informed consent was obtained, the patient, was brought into the endoscopy unit. IV sedation was administered by Anesthesia under continuous monitoring. Digital rectal examination was normal. Initially the Olympus CF-160 flexible video colonoscope was then inserted in the rectum, gradually advanced into the cecum without any difficulty. Careful examination was performed as the scope was gradually being withdrawn. Ileocecal valve and the appendiceal orifice were visualized and appeared normal. Prep was excellent. Mucosa of the cecum, ascending colon, transverse colon, descending colon, sigmoid colon, and rectum appeared normal. Retroflexion was performed in the rectum and no lesions were seen. The patient tolerated the procedure well. IMPRESSION: Normal-appearing colon from rectum to cecum with no evidence of colorectal neoplasia. RECOMMENDATIONS: Findings of this examination were discussed with the patient as well as her family. She was advised to have a repeat screening colonoscopy in 10 years.
[2021-02-21 10:59] VITALS: BP 122/80; PULSE 89
== END 2021-02-21 10:50 | disposition home or self-care (01) ==
LOC: ORWHC2ENDO 07:21
PROVIDERS: ATTEND Internal Medicine Gastroenterology
DX: Z12.11 Encounter for screening for malignant neoplasm of colon (principal)
CPT/HCPCS: 45378; 81025; 84702; J2704

== ENCOUNTER → 2022-02-07 | Outpatient (CLI) | payer OTHER ==
[2022-02-07 15:39] VITALS: BP 137/88; PULSE 112; TEMP 98.3; BMI 42.5
--- NOTE | 2022-02-07 15:44 | P.HPBAR ---
Bariatric H&P - History & Physicial H&P Date: 02/07/22 History & Physicial: Visit/CC: new patient consult Patient initial contact: Initial weight: Initial weight in pounds: Height: 5 ft 5.5 in Initial BMI: Last weight: Current weight: 117.707 kg Current weight in pounds: 259.50 Current BMI: 42.5 [place] body weight (based on NIH guidelines): 57.833 kg Excess body weight loss: The patient is a 46 year-old F who presents for Bariatric Assessment. Has breast cancer. Chemoradiation. Had double mastectomy. She has tummy tuck. She has hysterectomy. She had DEIP flap for breast reconstruction. No work since Mar 2021. She is looking into weight loss. She has sleep apnea and obstructed. Has knee arthritis. She is looking into the sleeve. She has rare heart burn from pizza. Recommend EGD. She was on ozempic last year 275 to 235 pounds now 254 pounds. She is on victoza. She has had multiple surgeries. Colonsocopy in Feb 2021. She stopped 7 months ago. She is 3 months out from Reconstruction. SHe is looking into skin removal after weight loss. Past Medical History Past Medical History: Asthma, Blood Disorder, Cancer, Sleep Apnea/CPAP/BIPAP Additional Past Medical History / Comment(s): Byers's palsy, low back pain with R sided sciatica, left breast cancer 2019, chemo last 07/14/20, radiation last 09/13/20. COVID vaccinatied. iron deficiency anemia History of Any Multi-Drug Resistant Organisms: None Reported Past Surgical History: Breast Surgery Additional Past Surgical History / Comment(s): Breast augmentation 2008, left breast lumpectomy 01/2020, removal of implants and bilat breast lift. Ovaries removed. Double mastectomy 2021. Primitivo JOHN PAUL flap June 2021 and revision Dec 2021. Past Anesthesia/Blood Transfusion Reactions: No Reported Reaction Past Psychological History: No Psychological Hx Reported Additional Psychological History / Comment(s): Pt resides with her boyfriend and one of her 2 daughters, the other daughter is away at college. Pt is independent. Smoking Status: Never smoker Past Alcohol Use History: Rare Past Drug Use History: None Reported - Past Family History Father Family Medical History: Myocardial Infarction (DE) Additional Family Medical History / Comment(s): Father of a DE at the age of 68yrs. Surgical - Exam Vital Signs Temp Pulse BP 98.3 F 112 H 137/88 02/07/22 15:28 02/07/22 15:28 02/07/22 15:28 Bariatric Checklist Checklist: Plan: Checklist: EGD: 1. Hiatal hernia: 2. H. Pylori: HgbA1c: Vitamin D: Smoking: Never smoker Primary care physician referral: DR. BLACKWOOD Psychiatry clearance: Cardiology clearance: Sleep study: Diet journal: VTE risk score: VTE risk level: Rehab needs at discharge:
[2022-02-07 17:45] LABS: INR 0.9 (<1.2); Partial Thromboplastin Time 23.6 sec (22.0-30.0); Prothrombin Time 9.7 sec (9.0-12.0)
[2022-02-08 00:17] LABS: Chol/HDL Ratio 4.44 Ratio; LDL Cholesterol,Calculated 137.6 mg/dL (0.0-131.0); Prealbumin 22.9 mg/dL (18.0-42.0)
[2022-02-08 00:37] LABS: % Iron Saturation 9.23 (12.00-45.00); ALT 21 U/L (8-44); AST 16 U/L (13-35); African American GFR (CKD) 121.2 (60.0-200.0); Albumin 4.5 g/dL (3.8-4.9); Albumin/Globulin Ratio 1.54 (1.60-3.17); Alkaline Phosphatase 117 U/L (41-126); BUN/Creat Ratio 33.63 Ratio (12.00-20.00); Blood Urea Nitrogen 22.6 mg/dL (9.0-27.0); Calcium 9.5 mg/dL (8.7-10.3); Carbon Dioxide 20.9 mmol/L (20.0-27.5); Chloride 104 mmol/L (96-109); Globulin 2.9 g/dL (1.6-3.3); Glucose 109 mg/dL (70-110); Iron 35 ug/dL (50-170); Magnesium 2.2 mg/dL (1.5-2.4); Non-African American GFR(CKD) 104.6 (60.0-200.0); Phosphorus 3.4 mg/dL (2.4-5.1); Potassium 3.7 mmol/L (3.5-5.5); Sodium 139 mmol/L (135-145); Total Iron Binding Capacity 374 ug/dL (228-460); Total Protein 7.4 g/dL (6.2-8.2)
[2022-02-08 00:51] LABS: HCT 41.4 % (37.2-46.3); HGB 13.4 g/dL (12.0-15.0); MCH 28.1 pg (27.0-32.0); MCHC 32.4 g/dL (32.0-37.0); MCV 86.8 fL (80.0-97.0); Mean Platelet Volume 9.9 fL (9.5-12.2); NRBC Per 100 WBC 0 /100 WBCS (0.0-0.0); Platelet Count 475 X 10*3/uL (140-440); RBC 4.77 X 10*6/uL (4.10-5.20); RDW 13.3 % (11.5-14.5); WBC 12.34 X 10*3/uL (4.50-10.00)
== END ==
LOC: BARWHC3 14:33
PROVIDERS: ATTEND Surgery Plastic and Reconstructive Surgery
DX: E66.01 Morbid (severe) obesity due to excess calories (principal); Z68.41 Body mass index [BMI] 40.0-44.9, adult; D50.9 Iron deficiency anemia, unspecified; K91.2 Postsurgical malabsorption, not elsewhere classified; E45 Retarded development following protein-calorie malnutrition; E44.0 Moderate protein-calorie malnutrition; E55.9 Vitamin D deficiency, unspecified; K74.1 Hepatic sclerosis; N19 Unspecified kidney failure; T56.894A Toxic effect of other metals, undetermined, initial encounter; K50.90 Crohn's disease, unspecified, without complications; Z71.51 Drug abuse counseling and surveillance of drug abuser
CPT/HCPCS: 84255; 84134; 84425; 80061; 80053; 82607; 82728; 82525; 82746; 83540; 83550; 83735; 84100; 84443; 84590; 84630; 85027; 85610; 85730; 82306; 83970; 83036; 80307; 93005; G0480; G0482; G0463; 80323; 99213

== ENCOUNTER 2022-03-26 07:34 | Day surgery (SDC) | payer OTHER ==
[2022-03-21 13:27] VITALS: BMI 41.2
--- NOTE | 2022-03-26 07:35 | P.GSHP ---
History of Present Illness H&P Date: 03/26/22 CHIEF COMPLAINT: GERD HISTORY OF PRESENT ILLNESS: The patient is a 47-year-old female who presents reports gastroesophageal reflux disease. Upper endoscopy was offered for further evaluation and management. PAST MEDICAL HISTORY: Please see list. PAST SURGICAL HISTORY: Please see list. MEDICATIONS: Please see list. ALLERGIES: Please see list. SOCIAL HISTORY: No illicit drug use FAMILY HISTORY: No reports of Crohn disease or ulcerative colitis. REVIEW OF ORGAN SYSTEMS: CONSTITUTIONAL: No reports of fevers or chills. GI: Denies any blood in stools or constipation. PHYSICAL EXAM: VITAL SIGNS: Stable GENERAL: Well-developed and pleasant in no acute distress. HEENT: No scleral icterus. Extraocular movements grossly intact. Moist buccal mucosa. NECK: Supple without lymphadenopathy. CHEST: Unlabored respirations. Equal bilateral excursions. CARDIOVASCULAR: Regular rate and rhythm. Distal 2+ pulses. ABDOMEN: Soft, nondistended. MUSCULOSKELETAL: No clubbing, cyanosis, or edema. ASSESSMENT: 1. Gastroesophageal reflux disease PLAN: 1. Recommend proceeding with an upper endoscopy Past Medical History Past Medical History: Asthma, Blood Disorder, Cancer, Sleep Apnea/CPAP/BIPAP Additional Past Medical History / Comment(s): Byers's palsy, low back pain with R sided sciatica, left breast cancer 2019, chemo last 07/14/20, radiation last 09/13/20. c pap machine,iron deficiency anemia History of Any Multi-Drug Resistant Organisms: None Reported Past Surgical History: Breast Surgery Additional Past Surgical History / Comment(s): Breast augmentation 2008, left breast lumpectomy 01/2020, removal of implants and bilat breast lift. Ovaries removed. Double mastectomy 2021. Primitivo JOHN PAUL flap June 2021 and revision Dec 2021. Past Anesthesia/Blood Transfusion Reactions: Postoperative Nausea & Vomiting (PONV) Smoking Status: Never smoker - Past Family History Father Family Medical History: Myocardial Infarction ([place]) Additional Family Medical History / Comment(s): Father of a ID at the age of 68yrs. Medications and Allergies Home Medications Medication Instructions Recorded Confirmed Type Calcium Carbonate [Calcium] 2,400 mg PO DAILY 09/19/20 03/21/22 History Cholecalciferol [Vitamin D3 (25 50 mcg PO DAILY 09/19/20 03/21/22 History Mcg = 1000 Iu)] Melatonin [Melatonin ER] 10 mg PO HS PRN 09/19/20 03/21/22 History Anastrozole 1 mg PO DAILY 01/31/21 03/21/22 History Acetaminophen/Diphenhydramine 1 each PO HS PRN 02/17/21 03/21/22 History [Tylenol Pm Ex-Strength Caplet] Liraglutide [Victoza 2-Brian] 3 mg SQ DAILY 02/17/21 03/21/22 History Biotin [Biotin Disolve] 10,000 mcg PO DAILY 03/21/22 03/21/22 History L.acidoph,Paracasei, B.lactis 1 each PO DAILY PRN 03/21/22 03/21/22 History [Probiotic] Allergies Allergy/AdvReac Type Severity Reaction Status Date / Time No Known Allergies Allergy Verified 03/21/22 13:20
[2022-03-26] MEDS ORDERED: LACTATED RINGERS 1,000 ML IV SCH (07:47)
[2022-03-26] MEDS ORDERED: LIDOCAINE 1% (10MG/ML) FOR IV START INTRADERMA PRN (07:47)
[2022-03-26] MEDS ORDERED: LIDOCAINE 2% INJ 20 MG/ML (2 ML VIAL) ONE (08:27)
[2022-03-26] MEDS ORDERED: PROPOFOL 10 MG/ML 20 ML VIAL IV ONE (08:27)
[2022-03-26 08:28] VITALS: TEMP 97.4
--- NOTE | 2022-03-26 08:54 | P.PCN ---
Date of Procedure: 03/26/22 Description of Procedure: PREOPERATIVE DIAGNOSIS: Gastroesophageal reflux disease. Morbid obesity. Diabetes type 2 POSTOPERATIVE DIAGNOSIS: Gastroesophageal reflux disease. Morbid obesity. Gastritis. Diaphragmatic hiatal hernia Erosive esophagitis with ulcers Gastroparesis with retained food OPERATION: Esophagogastroduodenoscopy with biopsies along antrum, duodenum, esophagus SURGEON: Massiel Gutierrez MD ANESTHESIA: MAC. INDICATIONS: The patient is a 47-year-old female who presents with reflux disease. Benefits and risks of the procedure were described. Informed consent was obtained. DESCRIPTION: The patient was brought into the endoscopy suite and laid in the left lateral decubitus position. An Olympus gastroscope was passed along the posterior oropharynx down to the distal esophagus where the squamocolumnar junction was encountered at 37 cm from the incisors. The stomach was entered and no bile reflux was found. Additional findings are listed below. Biopsies with cold forceps were obtained of the antrum. The first through third portion of the duodenum was examined. Retroflexion of the scope confirmed Hill grade 2 lower esophageal valve. The squamocolumnar junction demonstrated LA grade B erosive esophagitis. The stomach was desufflated. The patient tolerated the procedure we ll. FINDINGS: Squamocolumnar junction 37 cm from the incisors. Diaphragmatic hiatus at 38 cm. Hiatal hernia, 1 cm Hill grade 2 lower esophageal valve. LA grade C erosive esophagitis. Biopsies obtained of duodenum Chronic gastritis Moderate retained food consistent with gastroparesis RECOMMENDATIONS: Upper endoscopy as needed. Protonix 40 mg daily for 2 weeks May benefit from Reglan for gastroparesis after treatment with Protonix Plan - Discharge Summary New Discharge Prescriptions: Continue Liraglutide [Victoza 2-Brian] 3 mg SQ DAILY Acetaminophen/Diphenhydramine [Tylenol Pm Exstr 500-25Mg Cplt] 1 each PO HS PRN PRN Reason: sleep Cholecalciferol [Vitamin D3 (25 Mcg = 1000 Iu)] 50 mcg PO DAILY Melatonin [Melatonin ER] 10 mg PO HS PRN PRN Reason: sleep Calcium Carbonate [Calcium] 2,400 mg PO DAILY Anastrozole 1 mg PO DAILY Biotin [Biotin Disolve] 10,000 mcg PO DAILY L.acidoph,Paracasei, B.lactis [Probiotic] 1 each PO DAILY PRN PRN Reason: Constipation Discharge Medication List Calcium Carbonate [Calcium] 2,400 mg PO DAILY 09/19/20 [History] Cholecalciferol [Vitamin D3 (25 Mcg = 1000 Iu)] 50 mcg PO DAILY 09/19/20 [History] Melatonin [Melatonin ER] 10 mg PO HS PRN 09/19/20 [History] Anastrozole 1 mg PO DAILY 01/31/21 [History] Acetaminophen/Diphenhydramine [Tylenol Pm Exstr 500-25Mg Cplt] 1 each PO HS PRN 02/17/21 [History] Liraglutide [Victoza 2-Brian] 3 mg SQ DAILY 02/17/21 [History] Biotin [Biotin Disolve] 10,000 mcg PO DAILY 03/21/22 [History] L.acidoph,Paracasei, B.lactis [Probiotic] 1 each PO DAILY PRN 03/21/22 [History] Follow up Appointment(s)/Referral(s): [facility] [[facility]-STAFF] - 04/04/22 Patient Instructions/Handouts: Hiatal Hernia (DC), Diabetic Gastroparesis (GEN) Discharge Disposition: HOME SELF-CARE
[2022-03-26 09:16] VITALS: BP 111/78; PULSE 88; RESP 18
== END 2022-03-26 09:26 | disposition home or self-care (01) ==
LOC: ORWHC2ENDO 07:34
PROVIDERS: ATTEND Surgery Plastic and Reconstructive Surgery
DX: K29.50 Unspecified chronic gastritis without bleeding (principal); K22.10 Ulcer of esophagus without bleeding; J45.909 Unspecified asthma, uncomplicated; Z79.899 Other long term (current) drug therapy; G47.30 Sleep apnea, unspecified; E66.01 Morbid (severe) obesity due to excess calories; E11.43 Type 2 diabetes mellitus with diabetic autonomic (poly)neuropathy; K31.84 Gastroparesis; K44.9 Diaphragmatic hernia without obstruction or gangrene; Z79.811 Long term (current) use of aromatase inhibitors; Z82.49 Family history of ischemic heart disease and other diseases of the circulatory system; Z85.3 Personal history of malignant neoplasm of breast; Z90.722 Acquired absence of ovaries, bilateral; K21.00 Gastro-esophageal reflux disease with esophagitis, without bleeding
CPT/HCPCS: 88305; 43239; J2704; J2001

== ENCOUNTER → 2022-04-04 | Outpatient (CLI) | payer OTHER ==
[2022-04-04 15:07] VITALS: BP 136/86; PULSE 99; RESP 12; TEMP 98.4; BMI 41.8
--- NOTE | 2022-04-04 15:46 | P.BASOAP ---
Subjective Progress Note Date: 04/04/22 She is having side effect from Victoza with gastroparesis. She has gastroparesis. Recommend Reglan after completion of Protonix. Will pause medications. Labs reviewed. Objective - Vital Signs Vital signs: Vital Signs Temp 98.4 F 04/04/22 15:01 Pulse 99 04/04/22 15:01 Resp 12 04/04/22 15:01 BP 136/86 04/04/22 15:01 Pulse Ox FiO2 Intake & Output 04/03/22 04/04/22 04/04/22 18:59 06:59 18:59 Weight 113.942 kg Assessment/Plan Plan: Date: 04/04/22 Initial Weight: Initial BMI: Current Weight: 113.942 kg Current BMI: 41.8 Type of Surgery: Total Volume in Band: Previous Volume: Volume Removed: Volume Added: Band Size:
[2022-04-04 23:28] LABS: HCT 40.7 % (37.2-46.3); HGB 12.8 g/dL (12.0-15.0); MCH 27.4 pg (27.0-32.0); MCHC 31.4 g/dL (32.0-37.0); NRBC Per 100 WBC 0 /100 WBCS (0.0-0.0); Platelet Count 412 X 10*3/uL (140-440); RBC 4.68 X 10*6/uL (4.10-5.20); RDW 13.7 % (11.5-14.5); WBC 8.96 X 10*3/uL (4.50-10.00)
[2022-04-04 23:31] LABS: % Iron Saturation 11.15 (12.00-45.00); ALT 33 U/L (8-44); AST 20 U/L (13-35); African American GFR (CKD) 119.5 (60.0-200.0); Albumin 4.7 g/dL (3.8-4.9); Albumin/Globulin Ratio 1.94 (1.60-3.17); Alkaline Phosphatase 89 U/L (41-126); BUN/Creat Ratio 20.85 Ratio (12.00-20.00); Blood Urea Nitrogen 14.3 mg/dL (9.0-27.0); Carbon Dioxide 23.1 mmol/L (20.0-27.5); Chloride 103 mmol/L (96-109); Chol/HDL Ratio 3.65 Ratio; Globulin 2.4 g/dL (1.6-3.3); Glucose 81 mg/dL (70-110); Iron 41 ug/dL (50-170); LDL Cholesterol,Calculated 118.2 mg/dL (0.0-131.0); Non-African American GFR(CKD) 103.1 (60.0-200.0); Phosphorus 3.9 mg/dL (2.4-5.1); Potassium 3.7 mmol/L (3.5-5.5); Prealbumin 20.2 mg/dL (18.0-42.0); Sodium 141 mmol/L (135-145); Total Iron Binding Capacity 370 ug/dL (228-460); Total Protein 7.1 g/dL (6.2-8.2); VLDL Calculation 18.34 mg/dL (5.00-40.00)
[2022-04-04 23:59] LABS: Vitamin B12 >3600.0 pg/mL (200.0-944.0)
[2022-04-06 07:23] LABS: Vitamin A 39 ug/dL (38-106)
== END ==
LOC: BARWHC3 14:06
PROVIDERS: ATTEND Surgery Plastic and Reconstructive Surgery
DX: E66.01 Morbid (severe) obesity due to excess calories (principal); Z68.41 Body mass index [BMI] 40.0-44.9, adult; E89.1 Postprocedural hypoinsulinemia; D50.8 Other iron deficiency anemias; D50.9 Iron deficiency anemia, unspecified; K91.2 Postsurgical malabsorption, not elsewhere classified; E44.0 Moderate protein-calorie malnutrition; E44.1 Mild protein-calorie malnutrition; E45 Retarded development following protein-calorie malnutrition; E46 Unspecified protein-calorie malnutrition; E55.9 Vitamin D deficiency, unspecified; N19 Unspecified kidney failure; T56.894A Toxic effect of other metals, undetermined, initial encounter
CPT/HCPCS: 84134; 84425; 80061; 80053; 82607; 82728; 82746; 83540; 83550; 83735; 84100; 84443; 84590; 85027; 85730; 82306; 83970; 83036; G0463; 99211

== ENCOUNTER → 2022-05-28 | Outpatient (CLI) | payer OTHER ==
[2022-05-28 11:00] VITALS: BMI 41.2
== END ==
LOC: BARWHC3 08:40
PROVIDERS: ATTEND Surgery Plastic and Reconstructive Surgery
DX: E66.01 Morbid (severe) obesity due to excess calories (principal); Z68.41 Body mass index [BMI] 40.0-44.9, adult; Z71.3 Dietary counseling and surveillance
CPT/HCPCS: 97804

== ENCOUNTER → 2022-08-08 | Outpatient (CLI) | payer OTHER ==
[2022-08-08 15:45] VITALS: BP 122/86; PULSE 75; RESP 13; TEMP 98.3; BMI 40.3
--- NOTE | 2022-08-08 16:38 | P.BASOAP ---
Subjective Progress Note Date: 08/08/22 She comes in the right upper pain. She has gallbladder pain. Consent. Plan for colon cance in 2020. Check US gallbladder. Consent for sleeve. 6 weeks off advised. Objective - Vital Signs Vital signs: Vital Signs Temp 98.3 F 08/08/22 15:42 Pulse 75 08/08/22 15:42 Resp 13 08/08/22 15:42 BP 122/86 08/08/22 15:42 Pulse Ox FiO2 Intake & Output 08/07/22 08/08/22 08/08/22 18:59 06:59 18:59 Weight 111.584 kg Assessment/Plan Plan: Date: 08/08/22 Initial Weight: Initial BMI: Current Weight: 111.584 kg Current BMI: 40.3 Type of Surgery: Total Volume in Band: Previous Volume: Volume Removed: Volume Added: Band Size:
== END ==
LOC: BARWHC3 14:59
PROVIDERS: ATTEND Surgery Plastic and Reconstructive Surgery
DX: E66.01 Morbid (severe) obesity due to excess calories (principal); Z68.41 Body mass index [BMI] 40.0-44.9, adult
CPT/HCPCS: 99211

== ENCOUNTER 2022-08-13 14:15 | Inpatient (IN) | payer OTHER ==
[2022-08-29 11:53] LABS: ALT 39 U/L (4-34); AST 35 U/L (14-36); African American GFR (CKD) >90 (>60 ml/min/1.73 sqM); Albumin 4.8 g/dL (3.5-5.0); Alkaline Phosphatase 102 U/L (38-126); Anion Gap 11 mmol/L; Blood Urea Nitrogen 29 mg/dL (7-17); Calcium 9.9 mg/dL (8.4-10.2); Carbon Dioxide 25 mmol/L (22-30); Chloride 104 mmol/L (98-107); Glucose 93 mg/dL (74-99); Non-African American GFR(CKD) >90 (>60 ml/min/1.73 sqM); Potassium 4.4 mmol/L (3.5-5.1); Sodium 140 mmol/L (137-145); Total Bilirubin 0.7 mg/dL (0.2-1.3)
[2022-08-29 12:39] LABS: Basophils # (A) 0.1 k/uL (0-0.2); Basophils % (A) 1 %; Eosinophils # (A) 0.2 k/uL (0-0.7); Eosinophils % (A) 1 %; HCT 42.1 % (34.0-46.0); HGB 14.2 gm/dL (11.4-16.0); Lymphocytes # (A) 2.1 k/uL (1.0-4.8); Lymphocytes % (A) 15 %; MCH 28.5 pg (25.0-35.0); MCHC 33.8 g/dL (31.0-37.0); MCV 84.3 fL (80.0-100.0); Mean Platelet Volume 7.3; Monocytes # (A) 0.6 k/uL (0-1.0); Monocytes % (A) 4 %; Neutrophils # (A) 11.1 k/uL (1.3-7.7); Neutrophils % (A) 79 %; Platelet Count 521 k/uL (150-450); RBC 4.99 m/uL (3.80-5.40); RDW 13.6 % (11.5-15.5); WBC 14.1 k/uL (3.8-10.6)
[2022-09-10] MEDS ORDERED: ALVIMOPAN 12 MG CAPSULE PO PRN (05:00)
[2022-09-10] MEDS ORDERED: ACETAMINOPHEN TAB 500 MG TAB PO PRN (05:00)
[2022-09-10] MEDS ORDERED: ENOXAPARIN 40 MG/0.4 ML SYRINGE SQ PRN (05:00)
[2022-09-10] MEDS ORDERED: ONDANSETRON 4 MG/2 ML VIAL IVP PRN (05:00)
[2022-09-10] MEDS ORDERED: ONDANSETRON 4 MG/2 ML VIAL IVP ONE ×2 (10:26→17:51)
[2022-09-10] MEDS ORDERED: HYDROmorphone 0.5 MG/0.5 ML SYRINGE IVP PRN (10:26)
[2022-09-10] MEDS ORDERED: DEXAMETHASONE SOD PHOSPHATE 4 MG/ML 1 ML VIAL IV ONE (10:26)
[2022-09-10] MEDS: LACTATED RINGERS 1,000 ML IV SCH (10:46)
[2022-09-10] MEDS ORDERED: SCOPOLAMINE 1 MG/72 HR PATCH TRANSDERM ONE (10:54)
[2022-09-10] MEDS ORDERED: CHLORHEXIDINE GLUCONATE 15 ML CUP MUCOUS MEM STA (13:05)
[2022-09-10] MEDS ORDERED: PANTOPRAZOLE 40 MG/10 ML VIAL IVP STA (13:05)
[2022-09-10] MEDS ORDERED: ENOXAPARIN 40 MG/0.4 ML SYRINGE SQ STA (13:05)
--- NOTE | 2022-09-10 13:10 | P.GSHP ---
History of Present Illness H&P Date: 09/10/22 CHIEF COMPLAINT: Morbid obesity HISTORY OF PRESENT ILLNESS: Kerry Jones is a 47-year-old female who comes with lifelong morbid obesity. As result of morbid obesity, she has developed hypertensive heart disease, obstructive sleep apnea, hyperlipidemia, osteoarthritis of the hips and knees. She has completed medical supervised weight loss. She completed medical including cardiac assessment. She has completed psychological risk assessment. All surgical options were reviewed. She elected for sleeve gastrectomy. At height of 5 feet 5 inches, her ideal body weight is 149 pounds. She comes in 105.3 kg. Her body mass index is 38.6 PAST MEDICAL HISTORY: 1. Morbid obesity due to excess calories 2. Body mass index of 38.6 3. Osteoarthritis of the knees. 4. Osteoarthritis of the lower back. 5. Hypertensive heart disease. 6. Gastroesophageal reflux disease 7. Hyperlipidemia 8. Obstructive sleep apnea 9. Diabetes type 2 10. Breast cancer 11. Persistent leukocytosis 12. Postop nausea or vomiting PAST SURGICAL HISTORY: 1. Status post mastectomy and breast reconstruction HOME MEDICATIONS: Reviewed ALLERGIES: Reviewed SOCIAL HISTORY: No current tobacco use. FAMILY HISTORY: No family history of ulcerative colitis disease or Crohn's disease. Family history of morbid obesity. No lupus in the family. No reports of stomach or esophageal cancer. REVIEW OF ORGAN SYSTEMS: CONSTITUTIONAL: At height of 5 feet 45 inches, her ideal body weight is 149 pounds. HEENT: Denies any active troubles with vision or hearing. ENDOCRINE: Has diabetes. Has hypothyroidism. CARDIOVASCULAR: Past reports of palpitations or heart attacks or chest pain. RESPIRATORY: Has daytime somnolence. GASTROINTESTINAL: Denies any bright red blood per rectum. Has gastroesophageal reflux disease. MUSCULOSKELETAL: Has lower back pain and joint pain. Has osteoarthritis of the knees. NEURO: No headaches. No seizure disorders. PSYCH: Has depression. No suicidal ideation. RHEUMATOLOGIC: No lupus. No rheumatoid arthritis. HEMATOLOGIC: Denies any abnormal bleeding or bruising. No personal history of DVTs. SKIN: Has rash. No skin cancer. PHYSICAL EXAM: VITAL SIGNS: Height 5 foot 5 inches, weight 105.3 kg. BMI 38..6 GENERAL: Well-developed in no acute distress. HEENT: No scleral icterus. Extraocular movements grossly intact. Hears conversational speech. No nasal drainage. NECK: Supple without lymphadenopathy. CHEST: Nonlabored respirations with equal bilateral excursions. CARDIOVASCULAR: Regular rate and regular rhythm. Distal 2+ pulses. ABDOMEN: Obese, soft, nontender, nondistended. MUSCULOSKELETAL: No clubbing, cyanosis. NEURO: No focal or lateralizing signs. Cranial nerves 2 through 12 grossly within normal limits. PSYCH: Appropriate affect. Alert and oriented to person, place and time. SKIN: Good skin turgor. Well perfused. ASSESSMENT: 1. Morbid obesity due to excess calories 2. Body mass index of 38.6 3. Osteoarthritis of the knees. 4. Osteoarthritis of the lower back. 5. Hypertensive heart disease. 6. Gastroesophageal reflux disease 7. Hyperlipidemia 8. Obstructive sleep apnea 9. Diabetes type 2 10. Breast cancer 11. Persistent leukocytosis 12. Postop nausea or vomiting PLAN: 1. Bariatric options between a sleeve, band and a Tameka-en-Y gastric bypass were reviewed in detail. The patient elected for a sleeve gastrectomy. Robotic assisted approach described. 2. The [place] [facility] Data was also reviewed with benefits and risks as described. 3. An 8 page second-generation bariatric consent form was reviewed in detail including potential of bleeding, infection, leaks, adequate weight loss, nutritional deficiencies which the patient demonstrated understanding of the risks. 4. A 2 week high-protein low caloric 800 kcal diet described to address hepatomegaly. 5. Preoperative labs including complete metabolic panel and CBC with type and screen recommended. 6. DVT prophylaxis per [place] [facility]. 7. Antibiotic prophylaxis. 8. Inpatient hospitalization anticipated for more than 2 nights. 9. All questions and concerns were addressed with the patient. 10. She is at elevated risk for perioperative complications secondary to persistent leukocytosis, obstructive sleep apnea 11. Overall, patient has expressed understanding of bariatric care including po stoperative diet and commitment of lifestyle. Patient should benefit from surgical intervention for correction of her morbid obesity. Past Medical History Past Medical History: Asthma, Blood Disorder, Cancer, Sleep Apnea/CPAP/BIPAP Additional Past Medical History / Comment(s): Byers's palsy, low back pain with R sided sciatica, left breast cancer 2019, chemo last 07/14/20, radiation last 09/13/20. c pap machine,iron deficiency anemia, Spoke with Janneth in Bariatrics, stated "pt has a chronic hx of elevated WBCs" History of Any Multi-Drug Resistant Organisms: None Reported Past Surgical History: Breast Surgery Additional Past Surgical History / Comment(s): Breast augmentation 2008, left breast lumpectomy 01/2020, removal of implants and bilat breast lift. Bilateral Ovaries and tubes removed September 2020. Double mastectomy 2021. Primitivo JOHN PAUL flap June 2021 and revision Dec 2021. Past Anesthesia/Blood Transfusion Reactions: Postoperative Nausea & Vomiting (PONV) Additional Past Anesthesia/Blood Transfusion Reaction / Comment(s): no problems w/ prior blood transfusion Past Psychological History: No Psychological Hx Reported Additional Psychological History / Comment(s): Pt resides with her boyfriend and one of her 2 daughters, the other daughter is away at college. Pt is independent. Smoking Status: Never smoker Past Alcohol Use History: Rare Past Drug Use History: None Reported - Past Family History Mother Family Medical History: COPD, Renal Disease Father Family Medical History: Myocardial Infarction ([place]) Additional Family Medical History / Comment(s): Father of a [place] at the age of 68yrs. Medications and Allergies Home Medications Medication Instructions Recorded Confirmed Type Calcium Carbonate [Calcium] 2,400 mg PO DAILY 09/19/20 08/30/22 History Cholecalciferol [Vitamin D3 (25 50,000 unit PO WEEKLY 09/19/20 08/30/22 History Mcg = 1000 Iu)] Melatonin [Melatonin ER] 10 mg PO HS PRN 09/19/20 08/30/22 History Anastrozole 1 mg PO DAILY 01/31/21 08/30/22 History Biotin [Biotin Disolve] 10,000 mcg PO DAILY 03/21/22 08/30/22 History Mv-Min/Folic/Vit K/Lut/[id number] 1 each PO DAILY 04/25/22 08/30/22 History [Alive Women's 50 Plus Tablet] Allergies Allergy/AdvReac Type Severity Reaction Status Date / Time No Known Allergies Allergy Verified 09/10/22 10:44 Surgical - Exam Vital Signs Temp Pulse Resp BP Pulse Ox 97.7 F 103 H 16 109/77 98 09/10/22 10:45 09/10/22 10:45 09/10/22 10:45 09/10/22 10:45 09/10/22 10:45 Results - Labs 08/29/22 12:25 08/29/22 11:07
[2022-09-10] MEDS ORDERED: INDOCYANINE GREEN 25 MG VIAL IV STA (13:11)
[2022-09-10] MEDS ORDERED: ROCURONIUM 10 MG/ML (5 ML VIAL) IV ONE (13:33)
[2022-09-10] MEDS ORDERED: SUCCINYLCHOLINE CHLORIDE 200 MG/10 ML VIAL IV ONE (13:33)
[2022-09-10] MEDS ORDERED: NEOSTIGMINE 1 MG/ML 10 ML VIAL ONE (13:33)
[2022-09-10] MEDS ORDERED: fentaNYL (PF) 50 MCG/ML 2 ML AMP ONE (13:33)
[2022-09-10] MEDS ORDERED: INDOCYANINE GREEN 25 MG VIAL IV ONE (13:33)
[2022-09-10] MEDS ORDERED: KETOROLAC 15 MG/ML 1 ML VIAL ONE (13:33)
[2022-09-10] MEDS ORDERED: LIDOCAINE 2% INJ 20 MG/ML (2 ML VIAL) ONE (13:33)
[2022-09-10] MEDS ORDERED: ESMOLOL 100 MG/10 ML VIAL ONE (13:33)
[2022-09-10] MEDS ORDERED: HYDROmorphone (PF) 1 MG/ML ONE (13:33)
[2022-09-10] MEDS ORDERED: ONDANSETRON 4 MG/2 ML VIAL ONE (13:33)
[2022-09-10] MEDS ORDERED: MIDAZOLAM 2 MG/2 ML VIAL ONE (13:33)
[2022-09-10] MEDS ORDERED: GLYCOPYRROLATE 0.2 MG/ML 2 ML VIAL ONE (13:33)
[2022-09-10] MEDS ORDERED: PROPOFOL 10 MG/ML 20 ML VIAL IV ONE (13:33)
[2022-09-10] MEDS ORDERED: HYDROmorphone 1 MG/ML 1 ML SYRINGE IVP PRN (14:00)
[2022-09-10] MEDS ORDERED: NALOXONE 0.4 MG/ML 1 ML VIAL IV PRN ×2 (14:00→17:59)
[2022-09-10] MEDS ORDERED: BUPIVACAINE (PF) 0.25% 30 ML VIAL SQ ONE ×2 (14:08→14:12)
[2022-09-10] MEDS ORDERED: LACTATED RINGERS 1,000 ML IV ONE (15:00)
--- NOTE | 2022-09-10 15:30 | P.OP ---
Date of Procedure: 09/10/22 Description of Procedure: SURGEON: ROLA ORTEGA MD PREOPERATIVE DIAGNOSES: 1. Morbid obesity due to excess calories 2. Body mass index 36.9 3. Diabetes type 2 [id number] 4. Hyperlipidemia 5. Depressive disorder 6. Osteoarthritis bilateral hip. 7. Osteoarthritis ankles 8. Right upper quadrant abdominal pain 9. Symptomatic gallstones POSTOPERATIVE DIAGNOSES: 1. Morbid obesity due to excess calories 2. Body mass index 36.9 3. Diabetes type 2 [id number]-whewsjnyt 4. Hyperlipidemia 5. Depressive disorder 6. Osteoarthritis bilateral hip. 7. Osteoarthritis ankles 8. Right upper quadrant abdominal pain 9. Symptomatic gallstones OPERATION: 1. Robotic assisted daVinci Xi laparoscopic sleeve gastrectomy with 40-Barbadian bougie, multiport. 2. Robotic assisted daVinci Xi laparoscopic cholecystectomy with FIREFLY, multiport. 3. Intraoperative esophagogastroduodenoscopy. ANESTHESIA: Gen. local anesthetic ESTIMATED BLOOD LOSS: 10 mL SPECIMENS REMOVED: Sleeve gastrectomy and gallbladder COMPLICATIONS: None. FINDINGS: 1. Negative intraoperative esophagogastrojejunoscopy leak test. 2. No hepatomegaly or large hiatus hernia. 3. Total of 5 staplers used including 2 - 60 mm green robot maureen and 3 - 60 mm blue loads used to create the gastric sleeve. 4. Sleeve gastrectomy 23 x 6 cm 5. Gallbladder removed without contamination. INDICATIONS: 47-year-old female who comes with lifelong morbid obesity. She completed bariatric risk assessment including medical supervised weight loss. She presents for sleeve gastrectomy and cholecystectomy. At height of 5 feet 9 inches, her ideal body weight is 168 pounds. Her highest weight is 280 pounds, body mass index 36.9. She was 112 pounds overweight. All surgical options for morbid obesity had been described using the [place] bariatric surgery collaborative comorbidity resolution including complication risk score. A second-generation bariatric consent form was described in detail including the possibility of protein malnutrition, leaks, gastric stricture, venous thrombosis, gastroesophageal reflux disease, need for further surgery for which she demonstrated understanding. Additionally she had clinical cholecystitis for which cholecystectomy was described. Benefits and risks of the procedure were described at length. Informed consent was obtained. DESCRIPTION: The patient was brought into the operating room theater. Preoperatively she had received Lovenox subcutaneously for DVT prophylaxis. Additionally she had Peridex oral solution as an oral decontaminant. After general induction, the abdomen was prepped and draped in standard sterile fashion. An Ioban draping was placed along the abdomen. No damon catheter was placed A robotic da Aniya Xi system was prepped and primed. At 13 cm from the xiphoid, proposed port sites were marked with indelible marker along the anterior axillary line bilaterally, mid axillary line bilaterally with each ports were marked 10 to 15 cm from each other. The therapy assistant port was marked along the left lateral abdominal wall. The robotic stapler port was marked for the right midclavicular line. A 5 mm 0 degrees laparoscopic trocar entry was performed along the left upper quadrant. The abdomen was insufflated to 15 mmHg pressure was tolerated well. Diagnostic laparoscopy demonstrated no injury to bowel, viscera, or mesentery. The liver surface was unremarkable. No injury had occurred to the small bowel or viscera. Along the hiatus no prominent hiatal hernia. A 12 mm port was placed along the left upper abdominal wall after exchanging the 5 mm port. Another port was placed along the left lateral abdominal wall 8 mm. A separate 8 mm port was placed along the epigastrium and a 12-mm port placed along the right upper quadrant. Please note that the ports were placed at least 20 cm away from the target anatomy. Another port was placed along the right lateral abdominal wall, 8 mm trocar. Care was taken to check each robotic arms were safely away from collision with the bed or the patient. I had sat at the console. Next, 12-mm robot stapler port was placed along the right upper quadrant. The camera 8-mm port was maintained along the epigastrium. The patient was repositioned in reverse Trendelenburg position at 21-degrees after lowering the bed. The robot was docked along the right side of the patient. Using a grasper for arm 2, a hook cautery for arm 3, including grasper for arm 1, the robotic system was docked and primed as described. Instruments including Bovie cautery, vessel sealer, and staplers, and clips were interchanged by the therapy assistant for stapler loads. The camera was placed at 30-degrees down. Attention was brought to her gallbladder. The gallbladder fundus was retracted over the dome of the liver. Initial attention was brought to the infundibulum which was gently retracted in the inferior lateral approach. Using a grasper, the cystic duct including the cystic artery was carefully skeletonized. FIREFLY was used to identify the cystic artery and cystic structures. Large PLASTIC clips were used throughout the entire case. Using a clip radio reporter 1 clip was placed proximally, and 1 clip was placed distally along the cystic duct and then cauterized. Again care was taken to avoid any injury to the biliary tree as the common bile duct was clearly visualized during this portion of dissection. Next, the cystic artery was similarly clipped and cauterized. Electro-Bovie cautery was used to remove the gallbladder from the hepatic fossa. Hemostasis was checked and found to be adequate. Attention was brought to the sleeve gastrectomy portion of the case. The pylorus was identified and 6 cm proximally along the greater curvature of the stomach, the short gastrics were mobilized upwards to the angle of His using a vessel sealer. Redundant and adherent gastric cardia was addressed similarly and carefully with vessel sealer. Hemostasis was excellent during this portion of the procedure. The nursing floor care technician positioned a 40-Barbadian blunt bougie into the stomach. Robotic stapler green and blue loads 60 mm x 5 were used to create the sleeve. Initial firing was across the antrum of the stomach towards the angle of His. The staple line was completely hemostatic and linear without corkscrewing. Hemostasis was excellent. The space from the angularis incisura of the sleeve was approximately 4 cm. I then went to the head of the bed to perform the intraoperative esophagogastroduodenoscopy leak test. The upper pole of the stomach was bathed using normal saline solution. The scope was withdrawn with careful inspection along the staple line for which no leaks were found along the entire length. Additionally, the sleeve was completely hemostatic without any encroachment along the angularis incisura. Its topology was a soft "J". No stricture was encountered upon placement of the scope. The GI tract was desufflated. The patient tolerated this portion of the procedure well. The scope was completely withdrawn. The robot was undocked. I then rescrubbed into case, whereby the irrigation fluid was aspirated from the abdominal cavity. Tisseal fibrin sealant was placed along the entire staple length. Once dried the Rikki liver retractor was removed. Attention was now brought to removal of the specimens including the gallbladder. Gallbladder was removed using Endo Catch bag. The distal end of the sleeve gastrectomy specimen was brought out through the 12 mm port at the left upper quadrant. The specimen was gently removed en total, corresponding to 22 cm x 5 cm sleeve gastrectomy specimen. No contamination had occurred during this proce ss. All instruments and pneumoperitoneum including irrigation fluid was removed from the abdominal cavity. The 12 mm port site was irrigated with warm normal saline solution and diluted hydron peroxide. The final incisions were closed using subcuticular interrupted suture of 4-0 Monocryl. Exofin was applied to the skin once the skin had been cleansed. OptiFoam dressing was placed along the stomach extraction site. At the end of the procedure, needle, sponge, and instrument count was verified correct by the radio electronics technician. The patient was taken to the postanesthesia care unit in stable condition. She had tolerated the procedure well. Intraoperative films and findings were reviewed with the patient's family.
[2022-09-10] MEDS ORDERED: droPERidol 5 MG/2 ML VIAL IVP ONE (16:33)
[2022-09-10] MEDS ORDERED: diphenhydrAMINE 50 MG/ML 1 ML VIAL IVP ONE (17:29)
[2022-09-10] MEDS ORDERED: TRIMETHOBENZAMIDE 100 MG/ML 2 ML VIAL IM PRN (17:57)
[2022-09-10] MEDS ORDERED: ACETAMINOPHEN IV (For NPO) 1,000 MG in EMPTY BAG 1 BAG IVPB ONE (18:00)
[2022-09-10] MEDS: DEXAMETHASONE SOD PHOSPHATE 10 MG/ML 1 ML VIAL IVP STA ×2 (18:08→22:35)
[2022-09-10] MEDS: ALBUTEROL NEBULIZED 2.5 MG/3 ML INHALATION SCH ×2 (18:11→21:13)
[2022-09-10] MEDS: TRIMETHOBENZAMIDE 100 MG/ML 2 ML VIAL IM STA ×2 (18:16→22:37)
[2022-09-10] MEDS: SODIUM CHLORIDE 0.9% 1,000 ML IV ONE ×2 (18:39→18:44)
[2022-09-10] MEDS: fentaNYL PCA 500 MCG/50 ML BAG IV SCH (20:12)
[2022-09-10] MEDS: 0.9% NACL WITH KCL 20 MEQ/L 1,000 ML IV SCH (20:25)
[2022-09-10] MEDS: ACETAMINOPHEN IV (For NPO) 1,000 MG in EMPTY BAG 1 BAG IVPB SCH (22:38)
[2022-09-10] MEDS: METOCLOPRAMIDE 5 MG/ML 2 ML VIAL IVP SCH (22:48)
[2022-09-10] MEDS: DEXAMETHASONE SOD PHOSPHATE 4 MG/ML 1 ML VIAL IVP SCH (22:48)
[2022-09-10] MEDS: PANTOPRAZOLE 40 MG/10 ML VIAL IVP SCH (22:48)
[2022-09-10] MEDS: HYOSCYAMINE ORAL DROPS 1.875 MG/15 ML BOTTLE PO SCH (22:49)
[2022-09-10] MEDS: SIMETHICONE 40 MG/0.6 ML DROPS 2,000 MG/30 ML BOTTLE PO SCH ×2 (22:49→23:23)
[2022-09-11] MEDS: HYOSCYAMINE ORAL DROPS 1.875 MG/15 ML BOTTLE PO SCH ×2 (00:15→03:54)
[2022-09-11] MEDS: DEXAMETHASONE SOD PHOSPHATE 4 MG/ML 1 ML VIAL IVP SCH ×4 (00:15→17:38)
[2022-09-11] MEDS: 0.9% NACL WITH KCL 20 MEQ/L 1,000 ML IV SCH (00:16)
[2022-09-11] MEDS: METOCLOPRAMIDE 5 MG/ML 2 ML VIAL IVP SCH ×2 (00:16→04:12)
[2022-09-11] MEDS: ACETAMINOPHEN IV (For NPO) 1,000 MG in EMPTY BAG 1 BAG IVPB SCH ×3 (00:49→11:47)
[2022-09-11] MEDS: ONDANSETRON 4 MG/2 ML VIAL IVP SCH ×5 (00:49→23:16)
[2022-09-11 02:54] LABS: African American GFR (CKD) >90 (>60 ml/min/1.73 sqM); Anion Gap 16 mmol/L; Blood Urea Nitrogen 20 mg/dL (7-17); Calcium 7.6 mg/dL (8.4-10.2); Carbon Dioxide 11 mmol/L (22-30); Chloride 108 mmol/L (98-107); Magnesium 1.9 mg/dL (1.6-2.3); Non-African American GFR(CKD) >90 (>60 ml/min/1.73 sqM); Phosphorus 5.2 mg/dL (2.5-4.5); Potassium 4.8 mmol/L (3.5-5.1); Sodium 135 mmol/L (137-145)
[2022-09-11 03:02] LABS: Basophils % (A) 0 %; Eosinophils % (A) 0 %; HCT 33.9 % (34.0-46.0); Hypochromasia Slight; Lymphocytes # (A) 1.5 k/uL (1.0-4.8); Lymphocytes % (A) 6 %; MCH 27.4 pg (25.0-35.0); MCHC 31.3 g/dL (31.0-37.0); MCV 87.5 fL (80.0-100.0); Mean Platelet Volume 8.4; Monocytes # (A) 0.8 k/uL (0-1.0); Monocytes % (A) 3 %; Neutrophils # (A) 21.2 k/uL (1.3-7.7); Neutrophils % (A) 90 %; Platelet Count 619 k/uL (150-450); RBC 3.87 m/uL (3.80-5.40); RDW 13.8 % (11.5-15.5); WBC 23.6 k/uL (3.8-10.6)
[2022-09-11 03:12] LABS: HGB 10.6 gm/dL (11.4-16.0)
[2022-09-11] MEDS: fentaNYL PCA 500 MCG/50 ML BAG IV SCH ×2 (03:57→19:13)
[2022-09-11] MEDS: SODIUM CHLORIDE 0.9% 1,000 ML IV SCH ×2 (05:29→12:54)
[2022-09-11] MEDS: LACTATED RINGERS 1,000 ML IV SCH (07:36)
[2022-09-11] MEDS ORDERED: 0.9% NACL WITH KCL 20 MEQ/L 1,000 ML IV SCH (08:00)
[2022-09-11] MEDS: PANTOPRAZOLE 40 MG/10 ML VIAL IVP SCH ×2 (08:19→20:38)
[2022-09-11] MEDS: SIMETHICONE 40 MG/0.6 ML DROPS 2,000 MG/30 ML BOTTLE PO SCH ×4 (08:20→21:17)
[2022-09-11] MEDS ORDERED: ENOXAPARIN 40 MG/0.4 ML SYRINGE SQ SCH (09:00)
[2022-09-11] MEDS ORDERED: PANTOPRAZOLE 40 MG/10 ML VIAL IV SCH (09:00)
--- NOTE | 2022-09-11 10:05 | FL ---
EXAMINATION TYPE: FL UGI DATE OF EXAM: 09/11/2022 9:17 AM CLINICAL INDICATION:Female, 47 years old with history of Post Op Bariatric Surgery; COMPARISON: 01/20/2021 CT TECHNIQUE: Limited single contrast UGI study is performed with Isovue-[id number]. A total of 11 seconds of f luoroscopic time was utilized during procedure and 5 images obtained. DAP: 546.04 mGym2 FINDINGS: The stomach demonstrates a postsurgical morphology. No extravasation of contrast identifie d. No evidence of mass or ulcer disease. The duodenal bulb and sweep are unremarkable. Free flow of contrast through the gastroesophageal junc tion. IMPRESSION: Postsurgical changes without evidence of contrast extravasation.
[2022-09-11] MEDS ORDERED: SODIUM CHLORIDE 0.9% 2,000 ML IV ONE (10:12)
[2022-09-11 11:34] LABS: HCT 31.7 % (37.2-46.3); HGB 10.1 d/dL (12.0-15.0); MCH 28.2 pg (27.0-32.0); MCHC 31.9 d/dL (32.0-37.0); MCV 88.5 FL (80.0-97.0); Mean Platelet Volume 10.7 FL (9.5-12.2); NRBC Per 100 WBC 0 X 10*3/uL (0.00-0.01); Platelet Count 577 X 10*3/uL (140-440); RBC 3.58 X 10*6/uL (4.10-5.20); RDW 13.8 % (11.5-14.5); WBC 27.55 X 10*3/uL (4.50-10.00)
[2022-09-11 11:36] LABS: Glucose,Whole Blood 214 mg/dL (70-110)
[2022-09-11 12:01] VITALS: BMI 38.6
[2022-09-11 12:04] LABS: Basophils # (A) 0.03 X 10*3/uL (0.00-0.10); Basophils % (A) 0.1 %; Crenated RBC 2+; Eosinophils # (A) 0 X 10*3/uL (0.04-0.35); Eosinophils % (A) 0 %; Lymphocytes # (A) 2.37 X 10*3/uL (0.90-5.00); Lymphocytes % (A) 8.6 %; Monocytes # (A) 0.77 X 10*3/uL (0.20-1.00); Monocytes % (A) 2.8 %; Neutrophils # (A) 24.16 X 10*3/uL (1.80-7.70); Neutrophils % (A) 87.7 %
--- NOTE | 2022-09-11 12:57 | CONS ---
CONSULTATION CHIEF COMPLAINT: Tachycardia. HISTORY OF PRESENT ILLNESS: Kerry is a 47-year-old lady with history of breast cancer, status post bilateral mastectomy, morbid obesity; who was electively brought in for a gastric sleeve surgery. I have been consulted because of tachycardia. Her heart rates have been in the 130s to 140s, but she is in sinus. Blood pressure is normal at 113/84. She is afebrile. She denies any chest pain or difficulty in breathing. She does not have leg edema. There is no prior history of shortness of breath, PND or orthopnea. There is no prior history of coronary artery disease, congestive heart failure, or cardiac arrhythmia. PAST MEDICAL HISTORY: Negative for hypertension, diabetes, dyslipidemia. MEDICATIONS: As charted. FAMILY HISTORY: Negative for premature coronary artery disease. SOCIAL HISTORY: Negative for smoking, EtOH abuse or drug abuse. REVIEW OF SYSTEMS: Unremarkable other than what has been mentioned in history of presenting illness. PHYSICAL EXAMINATION: GENERAL: On exam, comfortable at rest. VITAL SIGNS: Heart rate is 130 beats per minute, blood pressure 113/84, respiratory rate is 16, O2 saturation is 96%. NECK: There is no jugular venous distention. CHEST: Reveals good air entry bilaterally. I do not hear any crackles or rhonchi. HEART: Reveals first and second heart sounds. No gallop. No murmur. ABDOMEN: Soft. EXTREMITIES: Exam of extremities did not reveal any edema. LABORATORY DATA: Labs show that the white cell count is elevated at 27, it was 14 on admission, hemoglobin is 10, it was 14 prior to surgery. Potassium is 4.8, creatinine is 0.76. ASSESSMENT: 1. Sinus tachycardia. 2. Status post gastric sleeve surgery. PLAN: The patient's sinus tachycardia is probably related to possible underlying infection, recent surgery, certainly any complications related to surgery should be a consideration. Sinus tachycardia is not a primary cardiac problem, but that is a secondary issue and it is important to address the underlying cause for her tachycardia. I will obtain a 2D echo to document her LV function. I am going to consult sound group hospitalist to further investigate the elevated white cell count and to evaluate and treat underlying causes for sinus tachycardia. Thank you for allowing us to participate in the care of this pleasant lady. MMODL / IJN: [id number] /
--- NOTE | 2022-09-11 14:13 | P.PN ---
Subjective Progress Note Date: 09/11/22 CHIEF COMPLAINT: Morbid obesity HISTORY OF PRESENT ILLNESS: Patient is postop day #1 status post Robotic assisted daVinci Xi laparoscopic sleeve gastrectomy and cholecystectomy. Patient complaining of feeling nauseous. No actual vomiting. She has been having pain rating it about a 7 out of 10 and she has been requiring PIN DRAFTER OPERATOR pump. She does feel thirsty and dry. Patient having difficulty with urinating. Reports that her urine is only trickling out. She has been tachycardic with heart rate into the 140s. Patient is afebrile. WBC is elevated at 27.55 Hgb 10.1 platelets 577 sodium is 135 potassium 4.8 CO2 11 creatinine 0.76 magnesium is 1.9 troponin 0.037. Echo pending pending upper GI shows a postsurgical changes without evidence of contrast extravasation. Patient did have a bladder scan in regards to possible urinary retention which did show 250 mL of urine PHYSICAL EXAM: VITAL SIGNS: Reviewed GENERAL: Well-developed in no acute distress. HEENT: No sclera icterus. Extraocular movements grossly intact. Moist buccal mucosa. Head is atraumatic, normocephalic. Hears conversational speech. No nasal drainage. NECK: Supple without lymphadenopathy. CHEST: Non-labored respirations and equal bilateral excursions. CARDIOVASCULAR: Palpable 2+ radial pulses. ABDOMEN: Soft. Nondistended. Abdominal binder in place. MUSCULOSKELETAL: No clubbing or cyanosis. NEUROLOGIC: No focal or lateralizing signs. Cranial nerves II through XII grossly intact. PSYCH: Appropriate affect. Alert and oriented to person, place and time. SKIN: Well perfused. Good skin turgor. ASSESSMENT: 1. Morbid obesity due to excess calories 2. Body mass index 36.9 3. Diabetes type 2 opu-kqewehc-bjuiqnssw 4. Hyperlipidemia 5. Depressive disorder 6. Osteoarthritis bilateral hip. 7. Osteoarthritis ankles 8. Right upper quadrant abdominal pain 9. Symptomatic gallstones 10. Sinus tachycardia 11. Leukocytosis PLAN: -Cardiology consulted in regards to sinus tachycardia. -Medicine consulted for medical management -2 L fluid bolus given due to dehydration and tachycardia -Continue IV fluids. Sodium bicarb has been added to fluids per medicine service -Continue anti-emetics -Continue to monitor urine output -Encouraged patient ambulates -Encouraged patient to use incentive spirometer -Continue pain management -GI prophylaxis Protonix and DVT prophylaxis Lovenox Physician Sheriffs Officer note has been reviewed by physician. Signing provider agrees with the documented findings, assessment, and plan of care. Objective - Vital Signs Vital signs: Vital Signs Temp 98.5 F 09/11/22 09:30 Pulse 135 H 09/11/22 09:30 Resp 16 09/11/22 09:47 BP 113/84 09/11/22 09:30 Pulse Ox 96 09/11/22 09:38 FiO2 Intake & Output 09/10/22 09/11/22 09/11/22 18:59 06:59 18:59 Intake Total 2150 Output Total 10 Balance 2140 Weight 105.3 kg Intake: IV 2150 Output: Estimated Blood Loss 10 Other: # Voids 2 - Labs CBC & Chem 7: 09/11/22 07:00 09/11/22 02:27 Labs: Abnormal Lab Results - Last 24 Hours (Table) 09/11/22 09/11/22 09/11/22 Range/Units 02:27 02:27 07:00 WBC 23.6 H 27.55 H (3.8-10.6) k/uL RBC 3.58 L (4.10-5.20) X 10*6/uL Hgb 10.6 L D 10.1 L (11.4-16.0) gm/dL Hct 33.9 L 31.7 L (34.0-46.0) % MCHC 31.9 L (32.0-37.0) d/dL Plt Count 619 H 577 H (150-450) k/uL Neutrophils # 21.2 H (1.3-7.7) k/uL Sodium 135 L (137-145) mmol/L Chloride 108 H (98-107) mmol/L Carbon Dioxide 11 L (22-30) mmol/L BUN 20 H (7-17) mg/dL POC Glucose (mg/dL) (70-110) mg/dL Calcium 7.6 L (8.4-10.2) mg/dL Phosphorus 5.2 H (2.5-4.5) mg/dL Troponin I (0.000-0.034) ng/mL 09/11/22 09/11/22 Range/Units 07:00 11:34 WBC (3.8-10.6) k/uL RBC (4.10-5.20) X 10*6/uL Hgb (11.4-16.0) gm/dL Hct (34.0-46.0) % MCHC (32.0-37.0) d/dL Plt Count (150-450) k/uL Neutrophils # (1.3-7.7) k/uL Sodium (137-145) mmol/L Chloride (98-107) mmol/L Carbon Dioxide (22-30) mmol/L BUN (7-17) mg/dL POC Glucose (mg/dL) 214 H (70-110) mg/dL Calcium (8.4-10.2) mg/dL Phosphorus (2.5-4.5) mg/dL Troponin I 0.037 H* (0.000-0.034) ng/mL
[2022-09-11 15:38] LABS: African American GFR (CKD) >90 (>60 ml/min/1.73 sqM); Anion Gap 11 mmol/L; Blood Urea Nitrogen 25 mg/dL (7-17); Calcium 7.3 mg/dL (8.4-10.2); Carbon Dioxide 15 mmol/L (22-30); Chloride 113 mmol/L (98-107); Glucose 150 mg/dL (74-99); Non-African American GFR(CKD) >90 (>60 ml/min/1.73 sqM); Potassium 4.3 mmol/L (3.5-5.1); Sodium 139 mmol/L (137-145)
--- NOTE | 2022-09-11 16:20 | XR ---
EXAMINATION TYPE: XR chest 1V portable DATE OF EXAM: 09/11/2022 3:28 PM COMPARISON: Chest radiographs from 10/29/2018 TECHNIQUE: XR chest 1V portable Frontal view of the chest. CLINICAL INDICATION:Female, 47 years old with history of shortness of breath; FINDINGS: Lungs/Pleura: Low lung volumes are present. There is no evidence of pleural effusion, focal consolida tion, or pneumothorax. Pulmonary vascularity: Unremarkable. Heart/mediastinum: Cardiomediastinal silhouette is unremarkable. Musculoskeletal: No acute osseous pathology. IMPRESSION: No acute cardiopulmonary disease/process.
--- NOTE | 2022-09-11 16:35 | P.CONS ---
History of Present Illness - Reason for Consult Consult date: 09/11/22 sinus tachycardia Requesting physician: Juan Wilson - Chief Complaint obesity - History of Present Illness Patient is a 47-year-old female with a history of breast cancer status post bilateral mastectomy is on anastrozole, asthma, and Byers's palsy who presented t o the the [facility] for elective robotic-assisted laparoscopic sleeve gastrectomy and cholecystectomy. We're asked to consult for medical management. Patient has been noted to have sinus tachycardia. She is already been evaluated by cardiology. Patient seen and examined at bedside. She reports that since surgery she has been having abdominal pain, feelings of distention in her upper abdomen with a bandlike sensation around her diaphragmatic area. She reports that the pain radiates to her back and up into her shoulders. She has been significantly nauseated and having dry heaves but has not physically vomited. She denies any overt chest pain or shortness of breath, but does state it hurts to take a deep breath. She denies any lightheadedness or dizziness. She is passing small amounts of gas but has not yet had a bowel movement. Vital signs reviewed General: nontoxic, no distress, appears at stated age Derm: warm, dry Eyes: EOMI, no lid lag, anicteric sclera, pupils equal round reactive to light ENT: Nose and ears atraumatic, no thrush, no pharyngeal erythema Cardiovascular: S1S2 reg, no murmur, positive posterior tibial pulse bilateral, no edema, capillary refill less than 2 seconds Lungs: clear to auscultation bilateral, no rhonchi, no rales, no wheeze, no accessory muscle use Abdominal: soft, tender to palpation diffusely, no guarding, no appreciable organomegaly, normal bowel sounds Ext: no gross muscle atrophy, no contractures Neuro: CN II-XII grossly intact, no focal neuro deficits Psych: Alert, oriented, appropriate affect Assessment/Plan: 47-year-old female status post sleeve gastrectomy and cholecystectomy postopera tive day #1 Class II Obesity Sinus tachycardia Intractable postoperative pain and nausea Elevated troponin, consistent with demand ischemia -Patient reports nausea is somewhat better after receiving Tigan and Decadron. 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 I discussed with her sinus tachycardia is usually mediated by an underlying cause and that I would like to see her pain level closer to a 3-4 to see if this abates her sinus tachycardia. -Continue with telemetry -Cardiology note reviewed: Overweight echocardiogram - IV fluids - Continue antiemetics Anion gap metabolic acidosis Hyperchloremia - stat BMP, Lactic acid, and acetone (now with hyperglycemia but this is to check for fasting ketosis) - change IV fluids to D5W with bicarb given acidosis Hyperglycemia - suspect related to decadron Leukocytosis Acute blood loss anemia, anticipated outcome of surgery Thrombocytosis - Leukocytosis, likely reactive due to demargination from stress of surgery and pain in conjuction with decadron - Check CXR to rule out infection - follow CBC Imaging: Upper GI: Postsurgical changes without evidence of contrast extravasation Chest x-rays reviewed by myself and ordered on 09/11 shows elevation of the right hemidiaphragm, increased vasculature markings, blunting of the left costophrenic angle Data Review: Vital signs reviewed temperature 98.5, pulse 135, respiration 16, blood pressure 113/84 Telemetry reviewed: Sinus tachycardia Labs reviewed and remarkable for white blood cell count 27.55, hemoglobin 10.1, hematocrit 31.7, platelets 577, sodium 135, chloride 108, Renae@11, anion gap 16, BUN 20, creatinine 0.76, troponin 0.037 Thank you for allowing us to participate in the care of this pleasant patient. Do not hesitate to contact us with questions. Someone can be reached from the [facility] hospitalist group all hours of the day at [phone] or via [employer] serve. This dictation was prepared using enGreet voice recognition software. Though every attempt is made to correct errors during dictation some may still exist. Past Medical History Past Medical History: Asthma, Blood Disorder, Cancer, Sleep Apnea/CPAP/BIPAP Additional Past Medical History / Comment(s): Byers's palsy, low back pain with R sided sciatica, left breast cancer 2019, chemo last 07/14/20, radiation last 09/13/20. c pap machine,iron deficiency anemia, Spoke with Janneth in Bariatrics, stated "pt has a chronic hx of elevated WBCs" History of Any Multi-Drug Resistant Organisms: None Reported Past Surgical History: Breast Surgery Additional Past Surgical History / Comment(s): Breast augmentation 2008, left breast lumpectomy 01/2020, removal of implants and bilat breast lift. Bilateral Ovaries and tubes removed September 2020. Double mastectomy 2021. Primitivo JOHN PAUL flap June 2021 and revision Dec 2021. Past Anesthesia/Blood Transfusion Reactions: Postoperative Nausea & Vomiting (PONV) Additional Past Anesthesia/Blood Transfusion Reaction / Comm: no problems w/ prior blood transfusion Past Psychological History: No Psychological Hx Reported Additional Psychological History / Comment(s): Pt resides with her boyfriend and one of her 2 daughters, the other daughter is away at college. Pt is independent. Smoking Status: Never smoker Past Alcohol Use History: Rare Past Drug Use History: None Reported - Past Family History Mother Family Medical History: COPD, Renal Disease Father Family Medical History: Myocardial Infarction (CO) Additional Family Medical History / Comment(s): Father of a CO at the age of 68yrs. Medications and Allergies Home Medications Medication Instructions Recorded Confirmed Type Calcium Carbonate [Calcium] 2,400 mg PO DAILY 09/19/20 08/30/22 History Cholecalciferol [Vitamin D3 (25 50,000 unit PO WEEKLY 09/19/20 08/30/22 History Mcg = 1000 Iu)] Melatonin [Melatonin ER] 10 mg PO HS PRN 09/19/20 08/30/22 History Anastrozole 1 mg PO DAILY 01/31/21 08/30/22 History Biotin [Biotin Disolve] 10,000 mcg PO DAILY 03/21/22 08/30/22 History Mv-Min/Folic/Vit [id number] 1 each PO DAILY 04/25/22 08/30/22 History [Alive Women's 50 Plus Tablet] Allergies Allergy/AdvReac Type Severity Reaction Status Date / Time No Known Allergies Allergy Verified 09/10/22 10:44 Physical Exam Osteopathic Statement: *. No significant issues noted on an osteopathic structural exam other than those noted in the History and Physical/Consult. Vitals: Vital Signs Temp Pulse Pulse Resp BP Pulse Ox 09/11/22 13:42 94 L 09/11/22 13:38 98.7 F 136 H 18 126/82 95 09/11/22 11:35 121 H 16 126/85 98 09/11/22 09:47 16 09/11/22 09:38 96 09/11/22 09:30 98.5 F 135 H 16 113/84 96 09/11/22 03:00 140 H 18 117/79 97 09/11/22 01:45 97.3 F L 133 H 18 106/78 97 09/10/22 23:15 111 H 118/84 97 09/10/22 23:00 111 H 114/80 97 09/10/22 22:45 118 H 110/76 09/10/22 22:30 107 H 125/86 91 L 09/10/22 22:15 107 H 114/80 91 L 09/10/22 22:00 105 H 115/84 90 L 09/10/22 21:45 105 H 119/84 89 L 09/10/22 21:30 104 H 130/85 92 L 09/10/22 20:00 110 H 09/10/22 19:55 98.0 F 62 18 139/84 94 L 09/10/22 18:30 102 H 16 144/86 99 09/10/22 18:00 104 H 16 123/77 98 09/10/22 17:30 109 H 16 139/81 96 09/10/22 17:15 101 H 16 133/80 96 09/10/22 17:00 101 H 16 135/78 96 09/10/22 16:45 97 16 141/75 93 L Intake and Output 09/11/22 09/11/22 09/11/22 06:59 14:59 22:59 Other: # Voids 2 1 # Bowel Movements 1 Weight 105.3 kg Results CBC & Chem 7: 09/11/22 07:00 09/11/22 15:06 Labs: Abnormal Lab Results - Last 24 Hours (Table) 09/11/22 09/11/22 09/11/22 Range/Units 02:27 02:27 07:00 WBC 23.6 H 27.55 H (3.8-10.6) k/uL RBC 3.58 L (4.10-5.20) X 10*6/uL Hgb 10.6 L D 10.1 L (11.4-16.0) gm/dL Hct 33.9 L 31.7 L (34.0-46.0) % MCHC 31.9 L (32.0-37.0) d/dL Plt Count 619 H 577 H (150-450) k/uL Neutrophils # 21.2 H 24.16 H (1.3-7.7) k/uL Eosinophils # 0 L (0.04-0.35) X 10*3/uL Crenated Cell 2+ A Sodium 135 L (137-145) mmol/L Chloride 108 H (98-107) mmol/L Carbon Dioxide 11 L (22-30) mmol/L BUN 20 H (7-17) mg/dL Glucose (74-99) mg/dL POC Glucose (mg/dL) (70-110) mg/dL Calcium 7.6 L (8.4-10.2) mg/dL Phosphorus 5.2 H (2.5-4.5) mg/dL Troponin I (0.000-0.034) ng/mL 09/11/22 09/11/22 09/11/22 Range/Units 07:00 11:34 15:06 WBC (3.8-10.6) k/uL RBC (4.10-5.20) X 10*6/uL Hgb (11.4-16.0) gm/dL Hct (34.0-46.0) % MCHC (32.0-37.0) d/dL Plt Count (150-450) k/uL Neutrophils # (1.3-7.7) k/uL Eosinophils # (0.04-0.35) X 10*3/uL Crenated Cell Sodium (137-145) mmol/L Chloride 113 H (98-107) mmol/L Carbon Dioxide 15 L (22-30) mmol/L BUN 25 H (7-17) mg/dL Glucose 150 H (74-99) mg/dL POC Glucose (mg/dL) 214 H (70-110) mg/dL Calcium 7.3 L (8.4-10.2) mg/dL Phosphorus (2.5-4.5) mg/dL Troponin I 0.037 H* (0.000-0.034) ng/mL
[2022-09-11] MEDS: DEXTROSE 5% IN WATER 1,000 ML with SODIUM BICARB (1 MEQ/ML) 150 ML IV SCH (17:37)
[2022-09-11 18:39] LABS: Appearance,Urine Clear (Clear); Bilirubin,Urine Negative (Negative); Blood,Urine Negative (Negative); Color,Urine Light Yellow; Glucose,Urine (UA) Trace (Negative); Ketones,Urine 3+ (Negative); Leukocyte Esterase,Urine Negative (Negative); Nitrite,Urine Negative (Negative); Protein,Urine Trace (Negative); Specific Gravity,Urine 1.045 (1.001-1.035); Urobilinogen,Urine <2.0 mg/dL (<2.0)
--- NOTE | 2022-09-11 18:47 | CT ---
EXAMINATION TYPE: CT chest angio for PE CT DLP: 612 mGycm, Automated exposure control for dose reduction was used. DATE OF EXAM: 09/11/2022 6:17 PM COMPARISON: CT 01/20/2021. CLINICAL INDICATION:Female, 47 years old with history of tachy with back pain, concern for pulmonary emboli; tachy with back pain, concern for pulmonary emboli TECHNIQUE/CONTRAST: CTA scan of the thorax is performed with IV Contrast, patient injected with 100 mL of Isovue 370, pul monary embolism protocol. MIP images are created and reviewed these [facility] FINDINGS: Pulmonary Artery: There is no evidence for a filling defect within the pulmonary vasculature to sugge st acute pulmonary embolism. The pulmonary artery is of normal size. Lungs/Pleura: No evidence of focal consolidation, pleural effusion or pneumothorax. Streaky atelectas is in the lung bases. Airway: Large airways are patent. Heart: Heart is within normal limits for size. Vasculature: No evidence of aortic aneurysm. Mediastinum: No gross evidence of adenopathy. Musculoskeletal: No acute osseous abnormalities Soft Tissues: Post surgical changes to the breasts bilaterally. Lower neck: No significant findings. Upper Abdomen: Free fluid within the abdomen is present. There is elevated right diaphragm. Hepatic c ysts are present. IMPRESSION: 1. No evidence of pulmonary embolism. 2. Free fluid in the upper abdomen is high density compatible with blood products. Further evaluation for hemorrhage is recommended. Clinical correlation recommended. Findings communicated to Dr. Carmen Cortez on 09/11/2022 6:[address] Luis Miguel Alfonso.
[2022-09-11 19:52] LABS: HGB 8.4 gm/dL (11.4-16.0); MCH 30.3 pg (25.0-35.0); MCV 86.5 fL (80.0-100.0); Platelet Count 405 k/uL (150-450); RBC 2.78 m/uL (3.80-5.40); WBC 19.5 k/uL (3.8-10.6)
[2022-09-11 20:45] LABS: Lymphocytes # (M) 2.34 k/uL (1.0-4.8); Monocytes # (M) 2.73 k/uL (0-1.0); Neutrophils # (M) 14.43 k/uL (1.3-7.7); Neutrophils % (M) 74 %; Nucleated Red Blood Cells 0 /100 WBC (0-0); Total Cells Counted 100
[2022-09-12] MEDS: fentaNYL PCA 500 MCG/50 ML BAG IV SCH ×2 (01:11→18:18)
[2022-09-12] MEDS ORDERED: ACETAMINOPHEN TAB 325 MG TAB PO PRN (03:57)
[2022-09-12] MEDS: DEXTROSE 5% IN WATER 1,000 ML with SODIUM BICARB (1 MEQ/ML) 150 ML IV SCH ×2 (03:58→11:53)
--- NOTE | 2022-09-12 06:05 | P.PN ---
Subjective Progress Note Date: 09/11/22 CHIEF COMPLAINT: Morbid obesity HISTORY OF PRESENT ILLNESS: Kerry Jones is a 47-year-old female status post sleeve gastrectomy 09/10/2022. Earlier in the morning, I was notified that thepatient's heart rate resting was in the 130s. Patient was asymptomatic. Labs were ordered by covering provider. I ordered an echo, troponins, including cardiology consultation. Her medications were adjusted. Per open shank coverer, medical consultation was requested. Per recommendations from cardiology, medicine consultation was placed. She received over 4 L normal saline during and after surgery. Additional imaging was obtained per medicine team for pulmonary embolism. I was notified by hospitalist Dr Payan regarding results of computed tomography scan. Patient reports primarily complaint includes diar eliel. Reports anxiety from multiple venipuncture for labs and diarrhea. She reports incisional pain. REVIEW OF ORGAN SYSTEMS: No fevers or chills. Has diarrhea. No tachycardia PHYSICAL EXAM: VITAL SIGNS: Reviewed GENERAL: Well-developed and anxious. HEENT: No scleral icterus. Extraocular movements grossly intact. Hears conversational speech. No nasal drainage. NECK: Supple without lymphadenopathy. CHEST: Mild labored respirations with equal bilateral excursions. CARDIOVASCULAR: Tachycardic ABDOMEN: Dressings intact. Appropriate incisional pain. MUSCULOSKELETAL: No clubbing, cyanosis. NEURO: No focal or lateralizing signs. Cranial nerves 2 through 12 grossly within normal limits. PSYCH: Anxious. SKIN: Good skin turgor. Well perfused. LABS: Reviewed. Troponins are mildly elevated. WBC elevated from 14,000, baseline to over 20,000. Hemoglobin down from baseline 12.8 to 10.6-10.1 STUDIES: CT of the chest reviewed demonstrates hematoma posterior to sleeve gastrectomy, contained. Parahepatic ascites identified from irrigation fluid during surgery. This is my independent interpretation. ASSESSMENT: 1. Morbid obesity due to excess calories 2. Body mass index of 38.6 3. Osteoarthritis of the knees. 4. Osteoarthritis of the lower back. 5. Hypertensive heart disease. 6. Gastroesophageal reflux disease 7. Hyperlipidemia 8. Obstructive sleep apnea 9. Diabetes type 2 10. Breast cancer 11. Persistent leukocytosis 12. Postop nausea or vomiting 13. Status post sleeve gastrectomy 14. Supraventricular tachycardia PLAN: 1. Prior to her surgery, patient obtained medical clearance and cardiac risk assessment from her primary care provider. Review of her prior EKGs, patient has persistent supraventricular tachycardia. Echo pending with cardiology consultation obtained. 2. Discontinue Lovenox due to hematoma. Bleeding from staple line is a common event from sleeve gastrectomy with DVT prophylaxis such as Lovenox. Overall, bleeding should subside within 24-48 hours after discontinuing Lovenox. 3. Anemia is partly dilutional from multiple liters of IV fluid hydration. Patient complains of edema due to fluid hydration. 4. Reglan discontinued for diarrhea 5. Patient has persistent leukocytosis however continue surgical prophylaxis sw itched to Zosyn. 6. Leukocytosis reactive including from steroids given for severe postoperative nausea or vomiting. Decadron discontinued. 7. Recommend full inpatient hospitalization due to supraventricular tachycardia, monitor anemia, and leukocytosis 8. At this time, monitor clinical status. Repeat CBC in the morning. May hold additional imaging. Objective - Vital Signs Vital signs: Vital Signs Temp 97.9 F 09/12/22 02:00 Pulse 139 H 09/12/22 02:00 Resp 16 09/12/22 02:00 BP 110/74 09/12/22 02:00 Pulse Ox 97 09/12/22 02:00 FiO2 Intake & Output 09/11/22 09/11/22 09/12/22 06:59 18:59 06:59 Output Total 100 Balance -100 Weight 105.3 kg Output: Urine 100 Other: Voiding Method Toilet # Voids 2 1 # Bowel Movements 1 1 - Labs CBC & Chem 7: 09/11/22 18:53 09/11/22 15:06 Labs: Abnormal Lab Results - Last 24 Hours (Table) 09/11/22 09/11/22 09/11/22 Range/Units 07:00 07:00 11:34 WBC 27.55 H (4.50-10.00) X 10*3/uL RBC 3.58 L (4.10-5.20) X 10*6/uL Hgb 10.1 L (12.0-15.0) d/dL Hct 31.7 L (37.2-46.3) % MCHC 31.9 L (32.0-37.0) d/dL Plt Count 577 H (140-440) X 10*3/uL Neutrophils # 24.16 H (1.80-7.70) X 10*3/uL Neutrophils # (Manual) (1.3-7.7) k/uL Monocytes # (Manual) (0-1.0) k/uL Eosinophils # 0 L (0.04-0.35) X 10*3/uL Crenated Cell 2+ A Chloride (98-107) mmol/L Carbon Dioxide (22-30) mmol/L BUN (7-17) mg/dL Glucose (74-99) mg/dL POC Glucose (mg/dL) 214 H (70-110) mg/dL Calcium (8.4-10.2) mg/dL Troponin I 0.037 H* (0.000-0.034) ng/mL Ur Specific [place] (1.001-1.035) Urine Protein (Negative) Urine Glucose (UA) (Negative) Urine Ketones (Negative) 09/11/22 09/11/22 09/11/22 Range/Units 15:06 18:34 18:53 WBC 19.5 H (4.50-10.00) X 10*3/uL RBC 2.78 L (4.10-5.20) X 10*6/uL Hgb 8.4 L D (12.0-15.0) d/dL Hct 24.0 L (37.2-46.3) % MCHC (32.0-37.0) d/dL Plt Count (140-440) X 10*3/uL Neutrophils # (1.80-7.70) X 10*3/uL Neutrophils # (Manual) 14.43 H (1.3-7.7) k/uL Monocytes # (Manual) 2.73 H (0-1.0) k/uL Eosinophils # (0.04-0.35) X 10*3/uL Crenated Cell Chloride 113 H (98-107) mmol/L Carbon Dioxide 15 L (22-30) mmol/L BUN 25 H (7-17) mg/dL Glucose 150 H (74-99) mg/dL POC Glucose (mg/dL) (70-110) mg/dL Calcium 7.3 L (8.4-10.2) mg/dL Troponin I (0.000-0.034) ng/mL Ur Specific [place] 1.045 H (1.001-1.035) Urine Protein Trace H (Negative) Urine Glucose (UA) Trace H (Negative) Urine Ketones 3+ H (Negative)
[2022-09-12] MEDS: ONDANSETRON 4 MG/2 ML VIAL IVP SCH ×3 (06:46→18:45)
[2022-09-12] MEDS: ACETAMINOPHEN IV (For NPO) 1,000 MG in EMPTY BAG 1 BAG IVPB SCH ×3 (06:46→18:26)
[2022-09-12] MEDS: PIPERACILLIN-TAZOBACTAM 3.375 GM in SODIUM CHLORIDE 0.9% 100 ML IVPB SCH ×3 (06:47→22:25)
[2022-09-12 06:55] LABS: African American GFR (CKD) >90 (>60 ml/min/1.73 sqM); Anion Gap 9 mmol/L; Blood Urea Nitrogen 23 mg/dL (7-17); Calcium 7.3 mg/dL (8.4-10.2); Carbon Dioxide 24 mmol/L (22-30); Chloride 106 mmol/L (98-107); Glucose 155 mg/dL (74-99); Non-African American GFR(CKD) >90 (>60 ml/min/1.73 sqM); Sodium 139 mmol/L (137-145)
[2022-09-12 07:03] LABS: Potassium 4.1 mmol/L (3.5-5.1)
[2022-09-12] MEDS: METOPROLOL TARTRATE 25 MG TAB PO SCH ×2 (09:10→20:49)
[2022-09-12] MEDS: PANTOPRAZOLE 40 MG/10 ML VIAL IVP SCH ×2 (09:11→20:49)
[2022-09-12] MEDS: SIMETHICONE 40 MG/0.6 ML DROPS 2,000 MG/30 ML BOTTLE PO SCH ×4 (09:12→22:26)
[2022-09-12 11:08] LABS: HCT 21.6 % (37.2-46.3); MCH 27.9 pg (27.0-32.0); MCHC 32.4 d/dL (32.0-37.0); MCV 86.1 FL (80.0-97.0); Mean Platelet Volume 10.9 FL (9.5-12.2); NRBC Per 100 WBC 0 X 10*3/uL (0.00-0.01); Platelet Count 360 X 10*3/uL (140-440); RBC 2.51 X 10*6/uL (4.10-5.20); RDW 14.1 % (11.5-14.5); WBC 19.23 X 10*3/uL (4.50-10.00)
--- NOTE | 2022-09-12 12:11 | P.PN ---
Subjective Progress Note Date: 09/12/22 Subjective: Seen and examined at bedside. No acute events overnight. She claims that she has had about 5 bowel movements, watery. She is able to tolerate small amounts of liquids. Her abdominal and back pain have improved. She was able to ambulate with physical therapy. She denies any active bleeding. Pertinent positives and negatives as discussed above, a complete review of sy stems was performed and all other systems are negative. Vitals Signs Reviewed. General: nontoxic, no distress, appears at stated age, obese Derm: warm, dry, dressing dry, clean, intact Head: atraumatic, normocephalic, symmetric Eyes: EOMI, no lid lag, anicteric sclera Mouth: no lip lesion, mucus membranes moist Cardiovascular: S1S2 reg, tachycardic, no murmur Lungs: CTA bilateral, no rhonchi, no rales , no accessory muscle use Abdominal: soft, nontender to palpation, no guarding, no appreciable organomegaly Ext: no gross muscle atrophy, no edema, no contractures Neuro: CN II-XI grossly intact, no focal neuro deficits Psych: Alert, oriented, appropriate affect Data Reviewed Today: Pertinent Labs: WBC 19.3, hemoglobin 7, platelet 360, sodium 139, potassium 4.1, creatinine 0.55 Imaging: No new imaging today Assessment and plan; 47-year-old female status post sleeve gastrectomy and cholecystectomy postoperative day #2 Class II Obesity Sinus tachycardia, improving Intractable postoperative pain and nausea, improving Elevated troponin, consistent with demand ischemia -Continue with telemetry -Cardiology was consulted, echocardiogram still pending -Sinus tachycardia improving with adequate pain control, continue IV fluids -Started on metoprolol per surgery -Continue antiemetics Anion gap metabolic acidosis, resolved Hyperchloremia, resolved -IV fluids changed to lactated Ringer's Hyperglycemia, in the setting of steroids, and reactive Leukocytosis, reactive, anticipated outcome of surgery Acute blood loss anemia, anticipated outcome of surgery Thrombocytosis, resolved -Hemoglobin still down trending, no active bleeding, continue to monitor -Patient is on IV Zosyn, started per surgery Thank you for allowing us to participate in the care of this pleasant patient. Do not hesitate to contact us with questions. Someone can be reached from the [facility] hospitalist group all hours of the day at [phone] or via perfect serve. Objective - Vital Signs Vital signs: Vital Signs Temp 97.7 F 09/12/22 07:17 Pulse 113 H 09/12/22 07:17 Resp 17 09/12/22 08:00 BP 114/65 09/12/22 07:17 Pulse Ox 93 L 09/12/22 07:17 FiO2 Intake & Output 09/11/22 09/12/22 09/12/22 18:59 06:59 18:59 Output Total 100 Balance -100 Weight 105.3 kg Output: Urine 100 Other: Voiding Method Toilet Toilet # Voids 1 4 # Bowel Movements 1 5 - Labs CBC & Chem 7: 09/12/22 07:22 09/12/22 05:33 Labs: Abnormal Lab Results - Last 24 Hours (Table) 09/11/22 09/11/22 09/11/22 Range/Units 15:06 18:34 18:53 WBC 19.5 H (3.8-10.6) k/uL RBC 2.78 L (3.80-5.40) m/uL Hgb 8.4 L D (11.4-16.0) gm/dL Hct 24.0 L (34.0-46.0) % Neutrophils # (Manual) 14.43 H (1.3-7.7) k/uL Monocytes # (Manual) 2.73 H (0-1.0) k/uL Chloride 113 H (98-107) mmol/L Carbon Dioxide 15 L (22-30) mmol/L BUN 25 H (7-17) mg/dL Glucose 150 H (74-99) mg/dL Calcium 7.3 L (8.4-10.2) mg/dL Ur Specific [place] 1.045 H (1.001-1.035) Urine Protein Trace H (Negative) Urine Glucose (UA) Trace H (Negative) Urine Ketones 3+ H (Negative) 09/12/22 09/12/22 Range/Units 05:33 07:22 WBC 19.23 H (3.8-10.6) k/uL RBC 2.51 L (3.80-5.40) m/uL Hgb 7.0 L (11.4-16.0) gm/dL Hct 21.6 L (34.0-46.0) % Neutrophils # (Manual) (1.3-7.7) k/uL Monocytes # (Manual) (0-1.0) k/uL Chloride (98-107) mmol/L Carbon Dioxide (22-30) mmol/L BUN 23 H (7-17) mg/dL Glucose 155 H (74-99) mg/dL Calcium 7.3 L (8.4-10.2) mg/dL Ur Specific [place] (1.001-1.035) Urine Protein (Negative) Urine Glucose (UA) (Negative) Urine Ketones (Negative)
--- NOTE | 2022-09-12 14:56 | P.PN ---
Subjective Progress Note Date: 09/12/22 CHIEF COMPLAINT: Morbid obesity HISTORY OF PRESENT ILLNESS: Patient is postop day #2 status post Robotic assisted daVinci Xi laparoscopic sleeve gastrectomy and cholecystectomy. Patient is sitting in bedside chair. She reports that she is feeling better today. She denies any nausea. Her pain is better controlled. She did have 7 episodes of diarrhea yesterday. Her last bowel movement was at 5 AM this morning. Patient reports that she is urinating easier. No urinary retention reported. Her tachycardia has shown some improvement heart rates more the lower 100s. However, with walking heart rate did go up into the 140s. She is followed by cardiology. Echo is pending. Patient does report cough with some sputum production. Afebrile. WBC 19.23 Hgb 7.0 platelets 360 sodium 139 potassium is 4.1 creatinine 0.55 CO2 improved from 15-24. Lovenox discontinued yesterday PHYSICAL EXAM: VITAL SIGNS: Reviewed GENERAL: Well-developed in no acute distress. HEENT: No sclera icterus. Extraocular movements grossly intact. Moist buccal mucosa. Head is atraumatic, normocephalic. Hears conversational speech. No nasal drainage. NECK: Supple without lymphadenopathy. CHEST: Non-labored respirations and equal bilateral excursions. CARDIOVASCULAR: Palpable 2+ radial pulses. ABDOMEN: Soft. Nondistended. Abdominal binder in place. MUSCULOSKELETAL: No clubbing or cyanosis. NEUROLOGIC: No focal or lateralizing signs. Cranial nerves II through XII grossly intact. PSYCH: Appropriate affect. Alert and oriented to person, place and time. SKIN: Well perfused. Good skin turgor. ASSESSMENT: 1. Morbid obesity due to excess calories 2. Body mass index of 38.6 3. Osteoarthritis of the knees. 4. Osteoarthritis of the lower back. 5. Hypertensive heart disease. 6. Gastroesophageal reflux disease 7. Hyperlipidemia 8. Obstructive sleep apnea 9. Diabetes type 2 10. Breast cancer 11. Persistent leukocytosis 12. Postop nausea or vomiting 13. Status post sleeve gastrectomy 14. Supraventricular tachycardia 15. Hematoma posterior to sleeve gastrectomy PLAN: -Continue bariatric clear liquid diet -Continue pain management -Continue IV fluids -Repeat CBC in AM -Continue to monitor hemoglobin -Continue anti-emetics as needed -Encouraged patient ambulates -Encouraged patient to use incentive spirometer -Continue pain management -Continue to hold anticoagulation -GI prophylaxis Protonix Physician Piano Case And Bench Assembler note has been reviewed by physician. Signing provider agrees with the documented findings, assessment, and plan of care. Please see additional documentation below. CHIEF COMPLAINT: Status post sleeve gastrectomy HISTORY OF PRESENT ILLNESS: Kerry Jones is a 47-year-old female status post sleeve gastrectomy 09/10/2022. She feels well this evening. Nausea moderately improved. Hemoglobin down to 7.0. She is tolerating metoprolol. She is angela ating liquids. Diarrhea mildly improving. Pain improved. REVIEW OF ORGAN SYSTEMS: No fevers or chills. Has diarrhea. PHYSICAL EXAM: VITAL SIGNS: Reviewed GENERAL: Well-developed and no acute distress HEENT: No scleral icterus. Extraocular movements grossly intact. Hears conversational speech. No nasal drainage. NECK: Supple without lymphadenopathy. CHEST: Mild labored respirations with equal bilateral excursions. CARDIOVASCULAR: Tachycardic, improved ABDOMEN: Dressings intact. No peritonitis. MUSCULOSKELETAL: No clubbing, cyanosis. NEURO: No focal or lateralizing signs. Cranial nerves 2 through 12 grossly within normal limits. PSYCH: Anxious. SKIN: Good skin turgor. Well perfused. LABS: Reviewed. Hemoglobin down 8.0-7.0. ASSESSMENT: 1. Morbid obesity due to excess calories 2. Body mass index of 38.6 3. Osteoarthritis of the knees. 4. Osteoarthritis of the lower back. 5. Hypertensive heart disease. 6. Gastroesophageal reflux disease 7. Hyperlipidemia 8. Obstructive sleep apnea 9. Diabetes type 2 10. Breast cancer 11. Persistent leukocytosis 12. Postop nausea or vomiting 13. Status post sleeve gastrectomy 14. Supraventricular tachycardia 15. Acute blood loss anemia from adverse event Lovenox 16. Iron deficiency anemia PLAN: 1. DVT prophylaxis with sequential compressive devices 2. Repeat CBC. 3. Likely discharge with stable hemoglobin 4. Recommend iron infusions for iron deficiency anemia Objective - Vital Signs Vital signs: Vital Signs Temp 97.7 F 09/12/22 07:17 Pulse 113 H 09/12/22 07:17 Resp 17 09/12/22 08:00 BP 114/65 09/12/22 07:17 Pulse Ox 93 L 09/12/22 07:17 FiO2 Intake & Output 09/11/22 09/12/22 09/12/22 18:59 06:59 18:59 Output Total 100 Balance -100 Weight 105.3 kg Output: Urine 100 Other: Voiding Method Toilet Toilet # Voids 1 4 # Bowel Movements 1 5 - Labs CBC & Chem 7: 09/13/22 06:51 09/12/22 05:33 Labs: Abnormal Lab Results - Last 24 Hours (Table) 09/11/22 09/11/22 09/11/22 Range/Units 07:00 11:34 15:06 WBC 27.55 H (4.50-10.00) X 10*3/uL RBC 3.58 L (4.10-5.20) X 10*6/uL Hgb 10.1 L (12.0-15.0) d/dL Hct 31.7 L (37.2-46.3) % MCHC 31.9 L (32.0-37.0) d/dL Plt Count 577 H (140-440) X 10*3/uL Neutrophils # 24.16 H (1.80-7.70) X 10*3/uL Neutrophils # (Manual) (1.3-7.7) k/uL Monocytes # (Manual) (0-1.0) k/uL Eosinophils # 0 L (0.04-0.35) X 10*3/uL Crenated Cell 2+ A Chloride 113 H (98-107) mmol/L Carbon Dioxide 15 L (22-30) mmol/L BUN 25 H (7-17) mg/dL Glucose 150 H (74-99) mg/dL POC Glucose (mg/dL) 214 H (70-110) mg/dL Calcium 7.3 L (8.4-10.2) mg/dL Ur Specific [place] (1.001-1.035) Urine Protein (Negative) Urine Glucose (UA) (Negative) Urine Ketones (Negative) 09/11/22 09/11/22 09/12/22 Range/Units 18:34 18:53 05:33 WBC 19.5 H (4.50-10.00) X 10*3/uL RBC 2.78 L (4.10-5.20) X 10*6/uL Hgb 8.4 L D (12.0-15.0) d/dL Hct 24.0 L (37.2-46.3) % MCHC (32.0-37.0) d/dL Plt Count (140-440) X 10*3/uL Neutrophils # (1.80-7.70) X 10*3/uL Neutrophils # (Manual) 14.43 H (1.3-7.7) k/uL Monocytes # (Manual) 2.73 H (0-1.0) k/uL Eosinophils # (0.04-0.35) X 10*3/uL Crenated Cell Chloride (98-107) mmol/L Carbon Dioxide (22-30) mmol/L BUN 23 H (7-17) mg/dL Glucose 155 H (74-99) mg/dL POC Glucose (mg/dL) (70-110) mg/dL Calcium 7.3 L (8.4-10.2) mg/dL Ur Specific [place] 1.045 H (1.001-1.035) Urine Protein Trace H (Negative) Urine Glucose (UA) Trace H (Negative) Urine Ketones 3+ H (Negative) 09/12/22 Range/Units 07:22 WBC 19.23 H (4.50-10.00) X 10*3/uL RBC 2.51 L (4.10-5.20) X 10*6/uL Hgb 7.0 L (12.0-15.0) d/dL Hct 21.6 L (37.2-46.3) % MCHC (32.0-37.0) d/dL Plt Count (140-440) X 10*3/uL Neutrophils # (1.80-7.70) X 10*3/uL Neutrophils # (Manual) (1.3-7.7) k/uL Monocytes # (Manual) (0-1.0) k/uL Eosinophils # (0.04-0.35) X 10*3/uL Crenated Cell Chloride (98-107) mmol/L Carbon Dioxide (22-30) mmol/L BUN (7-17) mg/dL Glucose (74-99) mg/dL POC Glucose (mg/dL) (70-110) mg/dL Calcium (8.4-10.2) mg/dL Ur Specific [place] (1.001-1.035) Urine Protein (Negative) Urine Glucose (UA) (Negative) Urine Ketones (Negative)
[2022-09-12] MEDS: LACTATED RINGERS 1,000 ML IV SCH ×2 (15:13→20:59)
[2022-09-12] MEDS: SODIUM FERRIC GLUCONAT-SUCROSE 125 MG in SODIUM CHLORIDE 0.9% 100 ML IVPB SCH (18:26)
[2022-09-13] MEDS: ACETAMINOPHEN IV (For NPO) 1,000 MG in EMPTY BAG 1 BAG IVPB SCH (00:10)
[2022-09-13] MEDS: ONDANSETRON 4 MG/2 ML VIAL IVP SCH ×3 (00:10→11:54)
[2022-09-13 03:07] VITALS: RESP 17
[2022-09-13] MEDS: LACTATED RINGERS 1,000 ML IV SCH (04:39)
[2022-09-13] MEDS: PIPERACILLIN-TAZOBACTAM 3.375 GM in SODIUM CHLORIDE 0.9% 100 ML IVPB SCH (05:48)
[2022-09-13 07:12] LABS: Basophils % (A) 0 %; Eosinophils % (A) 0 %; HCT 20.9 % (34.0-46.0); Lymphocytes # (A) 1.9 k/uL (1.0-4.8); Lymphocytes % (A) 19 %; MCH 28.2 pg (25.0-35.0); MCHC 33.5 g/dL (31.0-37.0); MCV 84.1 fL (80.0-100.0); Mean Platelet Volume 8.3; Monocytes # (A) 0.4 k/uL (0-1.0); Monocytes % (A) 4 %; Neutrophils # (A) 7.5 k/uL (1.3-7.7); Neutrophils % (A) 73 %; Platelet Count 283 k/uL (150-450); RBC 2.48 m/uL (3.80-5.40); RDW 14.3 % (11.5-15.5); WBC 10.2 k/uL (3.8-10.6)
[2022-09-13] MEDS: SODIUM FERRIC GLUCONAT-SUCROSE 125 MG in SODIUM CHLORIDE 0.9% 100 ML IVPB SCH (08:28)
[2022-09-13] MEDS: METOPROLOL TARTRATE 25 MG TAB PO SCH (08:29)
[2022-09-13] MEDS: PANTOPRAZOLE 40 MG/10 ML VIAL IVP SCH (08:29)
[2022-09-13] MEDS: SIMETHICONE 40 MG/0.6 ML DROPS 2,000 MG/30 ML BOTTLE PO SCH ×2 (08:31→11:59)
[2022-09-13 11:22] LABS: BUN/Creat Ratio 25.67 Ratio (12.00-20.00); Blood Urea Nitrogen 15.4 mg/dL (9.0-27.0); Calcium 7.8 mg/dL (8.7-10.3); Carbon Dioxide 25.9 mmol/L (21.6-31.8); Chloride 106 mmol/L (96-109); Glucose 102 mg/dL (70-110); Sodium 141 mmol/L (135-145)
--- NOTE | 2022-09-13 11:24 | P.PN ---
Subjective Progress Note Date: 09/12/22 History of present illness: This is a 47-year-old female with history of breast cancer status post bilateral mastectomy, morbid obesity in electively underwent gastric sleeve surgery. We are following for tachycardia. Patient denies having shortness of breath, chest pain. no lower extremity edema. Echocardiogram is pending. patient continues to have some episodes of tachycardia but improving.blood work reveals WBC 19.2, hemoglobin 7, platelet count 360. Electrolytes are normal. BUN 23 creatinine 0 .55. Physical examination: Gen: This is a 47-year-old female. She is rested chair and appears to be comfortable. VS: reviewed HEENT: Head is atraumatic, normocephalic. Pupils equal, round. Sclerae is anicteric. LUNGS: Clear to auscultation. No wheezes or rhonchi. No intercostal retra ctions. HEART: First and second heart sounds, no murmur EXTREMITIES: No pedal edema. NEUROLOGICAL: Patient is awake, alert and oriented x3. Assessment: Sinus tachycardia Status post gastric sleeve surgery leukocytosis Plan: Obtain 2-D echocardiogram and Doppler study to assess cardiac structure and function Further recommendations to follow based upon clinical course Thank you kindly for this consultation. Nurse practitioner note has been reviewed, I agree with documented findings and plan of care. Patient was seen and examined. Objective - Vital Signs Vital signs: Vital Signs Temp 97.7 F 09/12/22 07:17 Pulse 113 H 09/12/22 07:17 Resp 17 09/12/22 08:00 BP 114/65 09/12/22 07:17 Pulse Ox 93 L 09/12/22 07:17 FiO2 Intake & Output 09/11/22 09/12/22 09/12/22 18:59 06:59 18:59 Output Total 100 Balance -100 Weight 105.3 kg Output: Urine 100 Other: Voiding Method Toilet Toilet # Voids 1 4 # Bowel Movements 1 5 - Labs CBC & Chem 7: 09/13/22 06:51 09/12/22 05:33 Labs: Abnormal Lab Results - Last 24 Hours (Table) 09/11/22 09/11/22 09/11/22 Range/Units 07:00 15:06 18:34 WBC (3.8-10.6) k/uL RBC (3.80-5.40) m/uL Hgb (11.4-16.0) gm/dL Hct (34.0-46.0) % Neutrophils # 24.16 H (1.80-7.70) X 10*3/uL Neutrophils # (Manual) (1.3-7.7) k/uL Monocytes # (Manual) (0-1.0) k/uL Eosinophils # 0 L (0.04-0.35) X 10*3/uL Crenated Cell 2+ A Chloride 113 H (98-107) mmol/L Carbon Dioxide 15 L (22-30) mmol/L BUN 25 H (7-17) mg/dL Glucose 150 H (74-99) mg/dL Calcium 7.3 L (8.4-10.2) mg/dL Ur Specific [place] 1.045 H (1.001-1.035) Urine Protein Trace H (Negative) Urine Glucose (UA) Trace H (Negative) Urine Ketones 3+ H (Negative) 09/11/22 09/12/22 09/12/22 Range/Units 18:53 05:33 07:22 WBC 19.5 H 19.23 H (3.8-10.6) k/uL RBC 2.78 L 2.51 L (3.80-5.40) m/uL Hgb 8.4 L D 7.0 L (11.4-16.0) gm/dL Hct 24.0 L 21.6 L (34.0-46.0) % Neutrophils # (1.80-7.70) X 10*3/uL Neutrophils # (Manual) 14.43 H (1.3-7.7) k/uL Monocytes # (Manual) 2.73 H (0-1.0) k/uL Eosinophils # (0.04-0.35) X 10*3/uL Crenated Cell Chloride (98-107) mmol/L Carbon Dioxide (22-30) mmol/L BUN 23 H (7-17) mg/dL Glucose 155 H (74-99) mg/dL Calcium 7.3 L (8.4-10.2) mg/dL Ur Specific [place] (1.001-1.035) Urine Protein (Negative) Urine Glucose (UA) (Negative) Urine Ketones (Negative)
--- NOTE | 2022-09-13 11:27 | P.PN ---
Subjective Progress Note Date: 09/13/22 History of present illness: This is a 47-year-old female with history of breast cancer status post bilateral mastectomy, morbid obesity in electively underwent gastric sleeve surgery. We are following for tachycardia. Patient denies having shortness of breath, chest pain. no lower extremity edema. Echocardiogram is pending. patient states that she has ambulated to the bathroom and in the sanchez and heart rate has been controlled. Nursing is documented heart rate in the 90s. Blood pressure 125/77. Patient denies sensation of palpitations.Repeat blood work reveals WBC improved to 10.2, hemoglobin is 7, platelet count is 283. Electrolytes and renal function normal. Patient states that hemoglobin may be holding her discharge. She is receiving iron infusions. Physical examination: Gen: This is a 47-year-old female. She is rested in bed and appears to be comfortable. VS: reviewed HEENT: Head is atraumatic, normocephalic. Pupils equal, round. Sclerae is anicteric. LUNGS: Clear to auscultation. No wheezes or rhonchi. No intercostal retractions. HEART: First and second heart sounds, no murmur EXTREMITIES: No pedal edema. NEUROLOGICAL: Patient is awake, alert and oriented x3. Assessment: Sinus tachycardia Status post gastric sleeve surgery leukocytosis, resolved Plan: Obtain 2-D echocardiogram and Doppler study to assess cardiac structure and function Further recommendations to follow based upon clinical course Thank you kindly for this consultation. Nurse practitioner note has been reviewed, I agree with documented findings and plan of care. Patient was seen and examined. Objective - Vital Signs Vital signs: Vital Signs Temp 98.0 F 09/13/22 07:43 Pulse 94 09/13/22 07:43 Resp 17 09/13/22 07:43 BP 125/77 09/13/22 07:43 Pulse Ox 97 09/13/22 07:43 FiO2 Intake & Output 09/12/22 09/13/22 09/13/22 18:59 06:59 18:59 Intake Total 200 Balance 200 Intake: Oral 200 Other: Voiding Method Toilet # Voids 3 3 - Labs CBC & Chem 7: 09/13/22 06:51 09/13/22 06:51 Labs: Abnormal Lab Results - Last 24 Hours (Table) 07/12/23 07/13/23 Range/Units 07:22 06:51 WBC 19.23 H (4.50-10.00) X 10*3/uL RBC 2.51 L 2.48 L (4.10-5.20) X 10*6/uL Hgb 7.0 L 7.0 L (12.0-15.0) d/dL Hct 21.6 L 20.9 L (37.2-46.3) %
--- NOTE | 2022-09-13 12:10 | P.PN ---
Subjective Progress Note Date: 09/13/22 Patient is a 47-year-old female with a history of breast cancer status post bilateral mastectomy is on anastrozole, asthma, and Byers's palsy who presented to the hospital for elective robotic-assisted laparoscopic sleeve gastrectomy and cholecystectomy. We're asked to consult for medical management. She did develop some blood loss and tachycardia. Patient seen and examined at bedside. She is feeling much better. Her pain is decreasing. She is passing gas, having bowel movements, she denies any chest pain or shortness of breath. She is hoping to go home soon. She has been able to eat this morning for the first time. Vital signs reviewed General: nontoxic, no distress, appears at stated age Cardiovascular: S1S2 reg, no murmur, positive posterior tibial pulse bilateral, Lungs: Decreased bs bilateral, no rhonchi, no rales , no accessory muscle use Abdominal: soft, nontender to palpation, no guarding, no appreciable organomegaly Ext: no gross muscle atrophy, 2+ edema b/l lower extremities, no contractures Neuro: CN II-XI grossly intact, no focal neuro deficits Psych: Alert, oriented, appropriate affect Assessment/Plan: 47-year-old female status post sleeve gastrectomy and cholecystectomy postoperative Class II Obesity Sinus tachycardia Elevated troponin, consistent with demand ischemia, no reflective of cardiac dis ease - on metoprolol 25 mg BID - Cardiology note reviewed. - follow-up outpatient for echo Acute blood loss anemia, anticipated outcome of surgery -Status post IV iron 2 doses - will need repeat outpatient CBC to ensure elevating adequately, order added to discharge Anion gap metabolic acidosis, resolved Hyperchloremia, resolved Hyperglycemia, resolved Leukocytosis, resolved Thrombocytosis, resolved Intractable postoperative pain and nausea, resolved Data Review: Vitals reviewed temperature 98, pulse 94, respirations 17, blood pressure 125 or 77, O2 sat 97% on room air Labs reviewed and remarkable for hemoglobin of 7 Medically optimized for discharged at the discretion of surgery. This dictation was prepared using Swift [employer] voice recognition software. Though every attempt is made to correct errors during dictation some may still exist. Objective - Vital Signs Vital signs: Vital Signs Temp 98.0 F 09/13/22 07:43 Pulse 94 09/13/22 07:43 Resp 17 09/13/22 07:43 BP 125/77 09/13/22 07:43 Pulse Ox 97 09/13/22 09:54 FiO2 Intake & Output 09/12/22 09/13/22 09/13/22 18:59 06:59 18:59 Intake Total 200 Balance 200 Intake: Oral 200 Other: Voiding Method Toilet Toilet # Voids 3 3 - Labs CBC & Chem 7: 09/13/22 06:51 09/13/22 06:51 Labs: Abnormal Lab Results - Last 24 Hours (Table) 09/13/22 09/13/22 Range/Units 06:51 06:51 RBC 2.48 L (3.80-5.40) m/uL Hgb 7.0 L (11.4-16.0) gm/dL Hct 20.9 L (34.0-46.0) % BUN/Creatinine Ratio 25.67 H (12.00-20.00) Ratio Calcium 7.8 L (8.7-10.3) mg/dL
--- NOTE | 2022-09-13 12:28 | P.DS ---
Providers Date of admission: 09/10/22 10:11 Expected date of discharge: 09/13/22 Attending physician: Massiel Gutierrez Consults: 09/11/22 04:57 Consult Physician Stat Consulting Provider: [facility] Consult Reason/Comments: supraventricular tachycardia Do you want consulting provider notified?: Yes 09/11/22 11:25 Consult Physician Stat Consulting Provider: [facility] Consult Reason/Comments: medical mangement Do you want consulting provider notified?: Yes Primary care physician: Eduardo Velazco Hospital Course: Discharge diagnosis 1. Morbid obesity due to excess calories 2. Body mass index of 38.6 3. Osteoarthritis of the knees. 4. Osteoarthritis of the lower back. 5. Hypertensive heart disease. 6. Gastroesophageal reflux disease 7. Hyperlipidemia 8. Obstructive sleep apnea 9. Diabetes type 2 10. Breast cancer 11. Persistent leukocytosis resolved 12. Postop nausea or vomiting 13. Status post sleeve gastrectomy 14. Supraventricular tachycardia 15. Hematoma posterior to sleeve gastrectomy Hospital course This is a 47-year-old female with history of morbid obesity. She is status post robotic-assisted sleeve gastrectomy and cholecystectomy for symptom gallstones. Patient's pain is controlled. Upper GI shows no evidence of leak or obstruction. She is tolerating diet. She is afebrile. She's been up and ambulating. She is having bowel movements. Patient seen by cardiology in regards to the supraventricular tachycardia. Heart rate has improved. She was started on beta leni during this admission. Her white count has normalized. She was found to be anemic and evidence of a hematoma posterior to sleeve gastrectomy on CAT scan. Hemoglobin had is stable. She did receive IV iron. Patient is stable for discharge. Please refer to chart for any further details. Physician Toy Painter note has been reviewed by physician. Signing provider agrees with the documented findings, assessment, and plan of care. Patient Condition at Discharge: Stable Plan - Discharge Summary Discharge Rx Participant: Yes New Discharge Prescriptions: New Simethicone 40 mg/0.6 ml Drops [Mylicon Drops] 40 mg PO PCHS PRN #30 ml PRN Reason: Gas Metoprolol Tartrate [Lopressor] 25 mg PO BID 10 Days #20 tab bisacodyL [Dulcolax] 5 mg PO DAILY PRN #10 tab PRN Reason: Constipation Omeprazole [PriLOSEC] 40 mg PO DAILY #30 cap Acetaminophen Tab [Tylenol] 1,000 mg PO Q6HR PRN #30 tablet PRN Reason: Pain Ondansetron Odt [Zofran Odt] 4 mg PO Q8HR PRN #9 tab PRN Reason: Nausea Discontinued Cholecalciferol [Vitamin D3 (25 Mcg = 1000 Iu)] 50,000 unit PO WEEKLY Melatonin [Melatonin ER] 10 mg PO HS PRN PRN Reason: sleep Calcium Carbonate [Calcium] 2,400 mg PO DAILY Anastrozole 1 mg PO DAILY Biotin [Biotin Disolve] 10,000 mcg PO DAILY Mv-Min/Folic/Vit [id number] [Alive Women's 50 Plus Tablet] 1 each PO DAILY Discharge Medication List Acetaminophen Tab [Tylenol] 1,000 mg PO Q6HR PRN #30 tablet 09/13/22 [Rx] Metoprolol Tartrate [Lopressor] 25 mg PO BID 10 Days #20 tab 09/13/22 [Rx] Omeprazole [PriLOSEC] 40 mg PO DAILY #30 cap 09/13/22 [Rx] Ondansetron Odt [Zofran Odt] 4 mg PO Q8HR PRN #9 tab 09/13/22 [Rx] Simethicone 40 mg/0.6 ml Drops [Mylicon Drops] 40 mg PO PCHS PRN #30 ml 09/13/22 [Rx] bisacodyL [Dulcolax] 5 mg PO DAILY PRN #10 tab 09/13/22 [Rx] Follow up Appointment(s)/Referral(s): Eduardo Velazco MD [Primary Care Provider] - 1 Week Juan Wilson MD [STAFF PHYSICIAN] - 1 Week [place], [place] [NON-STAFF] - 09/14/22 9:00 am Ambulatory/Diagnostic Orders: Complete Blood Count w/diff [LAB.AMB] Time Frame: 5 Days, Location: None Selected Patient Instructions/Handouts: Nutrition after Bariatric Surgery (DC), Nutritio n after Bariatric Surgery (GEN), Laparoscopic Sleeve Gastrectomy (DC), Laparoscopic Sleeve Gastrectomy (GEN) Activity/Diet/Wound Care/Special Instructions: Lab work (cbc) in 5-7 days Liquid diet only for 2 weeks No lifting over 4 pounds in 4 weeks, May Shower. No soaking in bath tubs for 2 weeks Please notify your surgeon if you develop nausea and vomiting including new onset of abdominal pain. Continue to use incentive spirometry to prevent pneumonias. Please continue to ambulate at home to prevent blood clots in legs. Follow-up at the bariatric center. May shower. Dressings to be discontinued by surgeon in the office. Drink 64 oz of fluid daily. Start protein shakes on . Notify bariatric center for temp over 101.0, increased pain, drainage from incisions. No straws or carbonated beverages. Liquid diet only. Sugar content should be less than 6 g to avoid dumping syndrome. Take MOM for constipation. CRUSH, OPEN, OR CUT TABLETS LARGER THAN A SIZE OF A TIC TAC Hold on taking all vitamins until seen by surgeon Hold on taking Anastrozole until seen by surgeon Discharge Disposition: HOME SELF-CARE
[2022-09-13 13:31] VITALS: BP 119/75; PULSE 92; TEMP 98.4
--- NOTE | 2022-09-13 15:29 | CDI ---
Documentation Clarification Form Date: 09/14/2022 02:22:00 PM From: Ritika Dejesus RN, CCDS Admit Date: 09/10/2022 10:11:00 AM Patient Name: Kerry Jones Visit Number: [id number] Discharge Date: 09/13/2022 01:36:00 PM ATTENTION: The Clinical Documentation Specialists (CDI) and [facility] Coding Staff appreciate your assistance in clarifying documentation. Please respond to the clarification below the line at the bottom and electronically sign. The CDI & [facility] Coding staff will review the response and follow-up if needed. Please note: Queries are made part of the Legal Health Record. If you have any questions, please contact the author of this message via ITS. Dr. Massiel Gutierrez Hematoma is documented in the progress notes starting on09/11/2022 and patient had Robotic assisted daVinci Xi laparoscopic sleeve gastrectomy and Robotic assisted Laparoscopic cholecystectomy on 09/10/2022. Additional clarification is requested regarding the relationship, if any, that exists between the diagnosis and the procedure. Patients Admitting Diagnosis: Morbid obesity due to excess calories, Symptomatic gallstones Post-Operative Diagnosis: Same Procedure performed: Robotic assisted daVinci Xi laparoscopic sleeve gastrectomy and Robotic assisted Laparoscopic cholecystectomy History/Risk Factors: Diabetes Mellitus, Hyperlipidemia Depressive disorder, Hypertensive heart disease Obstructive sleep apnea, osteoarthritis of hips and knees. Clinical Indicators: 47-year-old female present for elected sleeve gastrectomy. 09/12 VS 110/74 139 16 97.9 97% 09/11 Attending progress note: Ct of chest reviewed demonstrates hematoma posterior to sleeve gastrectomy, contained. Parahepatic ascites identified from irrigation fluid during surgery. 09/11 UGI: Postsurgical changes without evidence of contrast extravasation. 09/11 Chest CTA: Free fluid in the upper abdomen is high density compatible with blood products. Further evaluation for hemorrhage is recommended. Treatment: DC Lovenox Monitor CBC What relationship, if any, exists between the diagnosis of Hematoma posterior to sleeve gastrectomy and the procedure. [ ] Hematoma is a complication of surgical procedure. [ ] Hematoma is an expected outcome of the surgical procedure. [ ] Hematoma is related to patients co-morbid condition(s) of [insert co- morbid dxs] & not a complication of the procedure [ ] Other please specify ____ [ ] Unable to determine (Template Last Revised: May 2020) [ X ] Hematoma is an expected outcome of the surgical procedure. 09/16/22 @ 20:47Leatha
== END 2022-09-13 13:36 | disposition home or self-care (01) | DRG 403 ==
LOC: 2ORMAIN 09-10 10:11 → 4SSUR 09-10 18:01
PROVIDERS: ADMIT Surgery Plastic and Reconstructive Surgery; ATTEND Surgery Plastic and Reconstructive Surgery
PROC: 0FT44ZZ Resection of Gallbladder, Percutaneous Endoscopic Approach (ICD-10-PCS; 2022-09-10)
PROC: 8E0W4CZ Robotic Assisted Procedure of Trunk Region, Percutaneous Endoscopic Approach (ICD-10-PCS; 2022-09-10)
PROC: 0DB64Z3 Excision of Stomach, Percutaneous Endoscopic Approach, Vertical (ICD-10-PCS; principal; 2022-09-10 11:30)
PROC: 0DJ08ZZ Inspection of Upper Intestinal Tract, Via Natural or Artificial Opening Endoscopic (ICD-10-PCS; 2022-09-10 11:30)
DX: E66.01 Morbid (severe) obesity due to excess calories (principal); I10 Essential (primary) hypertension; Z68.38 Body mass index [BMI] 38.0-38.9, adult; D62 Acute posthemorrhagic anemia; C50.919 Malignant neoplasm of unspecified site of unspecified female breast; E78.5 Hyperlipidemia, unspecified; D75.839 Thrombocytosis, unspecified; I24.8 Other forms of acute ischemic heart disease; G89.18 Other acute postprocedural pain; M54.31 Sciatica, right side; E87.8 Other disorders of electrolyte and fluid balance, not elsewhere classified; G51.0 Bell's palsy; E87.20 Acidosis, unspecified; E11.65 Type 2 diabetes mellitus with hyperglycemia; K21.9 Gastro-esophageal reflux disease without esophagitis; R11.2 Nausea with vomiting, unspecified; M17.0 Bilateral primary osteoarthritis of knee; I47.1 Supraventricular tachycardia; T14.8XXA Other injury of unspecified body region, initial encounter; Y65.8 Other specified misadventures during surgical and medical care; F32.A Depression, unspecified; G47.33 Obstructive sleep apnea (adult) (pediatric); K80.10 Calculus of gallbladder with chronic cholecystitis without obstruction; F06.4 Anxiety disorder due to known physiological condition; Z79.811 Long term (current) use of aromatase inhibitors; Z79.899 Other long term (current) drug therapy; Z82.49 Family history of ischemic heart disease and other diseases of the circulatory system; Z90.13 Acquired absence of bilateral breasts and nipples; Z85.3 Personal history of malignant neoplasm of breast
CPT/HCPCS: 71045; 71275; 74240; 80048; 80051; 80053; 81003; 81025; 82009; 82310; 82565; 83605; 83735; 84100; 84484; 84520; 85025; 85027; 86850; 86870; 86880; 86900; 86901; 88304; 88307; 94760

== ENCOUNTER → 2022-08-29 | Outpatient (CLI) | payer OTHER ==
[2022-08-29 11:53] LABS: ALT 39 U/L (4-34); AST 35 U/L (14-36); African American GFR (CKD) >90 (>60 ml/min/1.73 sqM); Albumin 4.8 g/dL (3.5-5.0); Alkaline Phosphatase 102 U/L (38-126); Anion Gap 11 mmol/L; Blood Urea Nitrogen 29 mg/dL (7-17); Calcium 9.9 mg/dL (8.4-10.2); Carbon Dioxide 25 mmol/L (22-30); Chloride 104 mmol/L (98-107); Glucose 93 mg/dL (74-99); Non-African American GFR(CKD) >90 (>60 ml/min/1.73 sqM); Potassium 4.4 mmol/L (3.5-5.1); Sodium 140 mmol/L (137-145); Total Bilirubin 0.7 mg/dL (0.2-1.3)
[2022-08-29 12:39] LABS: Basophils # (A) 0.1 k/uL (0-0.2); Basophils % (A) 1 %; Eosinophils # (A) 0.2 k/uL (0-0.7); Eosinophils % (A) 1 %; HCT 42.1 % (34.0-46.0); HGB 14.2 gm/dL (11.4-16.0); Lymphocytes # (A) 2.1 k/uL (1.0-4.8); Lymphocytes % (A) 15 %; MCH 28.5 pg (25.0-35.0); MCHC 33.8 g/dL (31.0-37.0); MCV 84.3 fL (80.0-100.0); Mean Platelet Volume 7.3; Monocytes # (A) 0.6 k/uL (0-1.0); Monocytes % (A) 4 %; Neutrophils # (A) 11.1 k/uL (1.3-7.7); Neutrophils % (A) 79 %; Platelet Count 521 k/uL (150-450); RBC 4.99 m/uL (3.80-5.40); RDW 13.6 % (11.5-15.5); WBC 14.1 k/uL (3.8-10.6)
== END | disposition home or self-care (01) ==
LOC: LABPAT 10:31
PROVIDERS: ATTEND Surgery Plastic and Reconstructive Surgery
DX: Z01.812 Encounter for preprocedural laboratory examination (principal)
CPT/HCPCS: 80053; 85025

== ENCOUNTER → 2022-09-03 | Outpatient (CLI) | payer OTHER | END | disposition home or self-care (01) | LOC: LABWHC1 12:21 | PROVIDERS: ATTEND Nurse Practitioner Adult Health | DX: Z53.9 Procedure and treatment not carried out, unspecified reason (principal) ==

== ENCOUNTER → 2022-09-03 | Outpatient (CLI) | payer OTHER ==
[2022-09-03 12:58] LABS: Prothrombin Time 10.6 sec (9.0-12.0)
[2022-09-03 20:59] LABS: ALT 27 U/L (8-44); AST 21 U/L (13-35); Albumin 4.6 d/dL (3.8-4.9); Albumin/Globulin Ratio 1.92 Ratio (1.60-3.17); Alkaline Phosphatase 91 U/L (41-126); Blood Urea Nitrogen 25.8 mg/dL (9.0-27.0); Calcium 9.6 mg/dL (8.7-10.3); Carbon Dioxide 21.6 mmol/L (21.6-31.8); Chloride 106 mmol/L (96-109); Globulin 2.4 d/dL (1.6-3.3); Glucose 91 mg/dL (70-110); Potassium 4.2 mmol/L (3.5-5.5); Sodium 139 mmol/L (135-145); Total Bilirubin 0.2 mg/dL (0.3-1.2)
[2022-09-03 21:16] LABS: % Iron Saturation 9.44 (12.00-45.00)
[2022-09-03 22:53] LABS: Basophils # (A) 0.07 X 10*3/uL (0.00-0.10); Basophils % (A) 0.6 %; Eosinophils # (A) 0.06 X 10*3/uL (0.04-0.35); Eosinophils % (A) 0.5 %; HCT 43.5 % (37.2-46.3); HGB 13.7 d/dL (12.0-15.0); Lymphocytes # (A) 1.97 X 10*3/uL (0.90-5.00); Lymphocytes % (A) 15.7 %; MCH 27.7 pg (27.0-32.0); MCHC 31.5 d/dL (32.0-37.0); MCV 88.1 FL (80.0-97.0); Mean Platelet Volume 10.4 FL (9.5-12.2); Monocytes # (A) 0.52 X 10*3/uL (0.20-1.00); Monocytes % (A) 4.1 %; NRBC Per 100 WBC 0 X 10*3/uL (0.00-0.01); Neutrophils # (A) 9.86 X 10*3/uL (1.80-7.70); Neutrophils % (A) 78.6 %; Platelet Count 415 X 10*3/uL (140-440); RBC 4.94 X 10*6/uL (4.10-5.20); RDW 13.7 % (11.5-14.5); WBC 12.54 X 10*3/uL (4.50-10.00)
== END | disposition home or self-care (01) ==
LOC: LABPAT 11:28
PROVIDERS: ATTEND Surgery Plastic and Reconstructive Surgery
DX: Z01.812 Encounter for preprocedural laboratory examination (principal)
CPT/HCPCS: 36415; 80053; 82607; 82728; 82746; 83540; 83550; 85025; 85610

== ENCOUNTER → 2022-09-06 | Outpatient (CLI) | payer OTHER ==
--- NOTE | 2022-09-06 08:33 | US ---
EXAMINATION TYPE: US gallbladder DATE OF EXAM: 09/06/2022 COMPARISON: CT 01/20/2021 CLINICAL INDICATION: Female, 47 years old with history of R10.11 RIGHT UPPER QUADRANT PAIN; RUQ pain, subcostal area TECHNIQUE: Multiple sonographic images of the right upper quadrant are obtained. FINDINGS: EXAM MEASUREMENTS: Liver Length: 17.1 cm CBD: 0.3 cm Right Kidney: 11.0x5.3x5.2 cm [employer]GER NOTES: Pancreas: Tail obscured by overlying bowel gas Liver: enlarged with increased echogenicity and attenuation, several subcentimeter anechoic areas ag ain seen from 2020 CT, largest measured in each lobe: LT lobe: 2.0x1.9x2.0 (2.02cm on 2020 CT) RT lobe: 1.0x0.9x1.3cm . Gallbladder: wall irregularities seen within neck/body of GB Evidence for sonographic Larios's sign: No CBD: wnl Right Kidney: wnl The visualized portions of the pancreas are unremarkable. The tail is obscured by overlying bowel gas . The liver is enlarged with increased echogenicity. Several subcentimeter anechoic cysts identified within the liver. The right kidney is unremarkable without evidence of nephrolithiasis, hydronephrosi s, or solid mass. Common bile duct is within normal limits. There is some layering subcentimeter calc adriana versus polyps involving the gallbladder wall. No pericholecystic fluid or wall thickening. Per so nographer, negative sonographic Larios sign. IMPRESSION: 1. No acute process. 2. Hepatomegaly with steatosis. 3. Gallbladder wall layering calculi versus subcentimeter polyps. Consider follow-up ultrasound in 6 months.
== END | disposition home or self-care (01) ==
LOC: RADUSWWP 06:53
PROVIDERS: ATTEND Surgery Plastic and Reconstructive Surgery
DX: K76.0 Fatty (change of) liver, not elsewhere classified (principal); R16.0 Hepatomegaly, not elsewhere classified
CPT/HCPCS: 76705

== ENCOUNTER → 2022-09-28 | Outpatient (CLI) | payer OTHER ==
[~2022-09-28] MED LIST: IRON SUCROSE 300 MG in SODIUM CHLORIDE 0.9% 250 ML IVPB NR; SODIUM CHLORIDE 0.9% 500 ML 500 ML in EMPTY BAG 1 BAG IV PRN
[2022-09-28 10:53] VITALS: BP 119/80; PULSE 99; RESP 15; TEMP 97.7
== END ==
LOC: PROCWHC3 10:37
PROVIDERS: ATTEND Surgery Plastic and Reconstructive Surgery
DX: D50.9 Iron deficiency anemia, unspecified (principal)
CPT/HCPCS: 96365; 96366; J1756

== ENCOUNTER → 2022-12-12 | Outpatient (CLI) | payer OTHER ==
[2022-12-12 14:19] VITALS: BP 132/87; PULSE 99; RESP 13; TEMP 98.3; BMI 30.3
--- NOTE | 2022-12-12 14:38 | P.BASOAP ---
Subjective Progress Note Date: 12/12/22 She lost 75 pounds. "I feel great!" She is off medications. She is no longer using CPAP machine. She is on track to losing over 100 pounds! She has different clothes. Her fiance. She is 3 months out. She is off medications. She has rare heartburn. She reports eating too fast and having hiccups. No soreness. Recommend labs. Objective - Vital Signs Vital signs: Vital Signs Temp 98.3 F 12/12/22 14:04 Pulse 99 12/12/22 14:04 Resp 13 12/12/22 14:04 BP 132/87 12/12/22 14:04 Pulse Ox FiO2 Intake & Output 12/11/22 12/12/22 12/12/22 18:59 06:59 18:59 Weight 83.915 kg Assessment/Plan Plan: Date: 12/12/22 Initial Weight: Initial BMI: Current Weight: 83.915 kg Current BMI: 30.3 Type of Surgery: Total Volume in Band: Previous Volume: Volume Removed: Volume Added: Band Size:
== END ==
LOC: BARWHC3 13:42
PROVIDERS: ATTEND Surgery Plastic and Reconstructive Surgery
DX: E66.01 Morbid (severe) obesity due to excess calories (principal); E89.1 Postprocedural hypoinsulinemia; K90.89 Other intestinal malabsorption; K74.1 Hepatic sclerosis; N19 Unspecified kidney failure; T56.894A Toxic effect of other metals, undetermined, initial encounter; K50.90 Crohn's disease, unspecified, without complications; Z68.30 Body mass index [BMI] 30.0-30.9, adult
CPT/HCPCS: 97803; G0463; 99211

== ENCOUNTER → 2022-12-24 | Outpatient (CLI) | payer OTHER ==
[2022-12-24 12:20] LABS: Partial Thromboplastin Time 24.5 sec (22.0-30.0); Prothrombin Time 11.1 sec (10.0-12.5)
[2022-12-24 17:22] LABS: HCT 45.5 % (37.2-46.3); HGB 14.6 d/dL (12.0-15.0); MCH 27.9 pg (27.0-32.0); MCHC 32.1 d/dL (32.0-37.0); MCV 86.8 FL (80.0-97.0); Mean Platelet Volume 11.1 FL (9.5-12.2); NRBC Per 100 WBC 0 X 10*3/uL (0.00-0.01); Platelet Count 315 X 10*3/uL (140-440); RBC 5.24 X 10*6/uL (4.10-5.20); RDW 15.5 % (11.5-14.5); WBC 6.51 X 10*3/uL (4.50-10.00)
[2022-12-24 19:25] LABS: Prealbumin 16.2 mg/dL (18.0-42.0)
[2022-12-24 20:19] LABS: ALT 15 U/L (8-44); AST 18 U/L (13-35); Albumin 4.8 d/dL (3.8-4.9); Albumin/Globulin Ratio 2.18 Ratio (1.60-3.17); Alkaline Phosphatase 96 U/L (41-126); BUN/Creat Ratio 21.86 Ratio (12.00-20.00); Blood Urea Nitrogen 15.3 mg/dL (9.0-27.0); Calcium 10.2 mg/dL (8.7-10.3); Carbon Dioxide 19.9 mmol/L (21.6-31.8); Chloride 102 mmol/L (96-109); Chol/HDL Ratio 3.56 Ratio; Globulin 2.2 d/dL (1.6-3.3); Glucose 81 mg/dL (70-110); Iron 69 UG/DL (50-170); LDL Cholesterol,Calculated 105.2 mg/dL (0.0-131.0); Magnesium 2.1 mg/dL (1.5-2.4); Phosphorus 3.3 mg/dL (2.4-5.1); Potassium 4.1 mmol/L (3.5-5.5); Sodium 142 mmol/L (135-145); Total Bilirubin 0.3 mg/dL (0.3-1.2); Total Iron Binding Capacity 315 UG/DL (228-460)
[2022-12-25 08:02] LABS: Zinc, Serum 89 ug/dL (60-130)
[2022-12-26 06:35] LABS: Vitamin A 27 ug/dL (38-106)
== END | disposition home or self-care (01) ==
LOC: LABWHC1 10:07
PROVIDERS: ATTEND Surgery Plastic and Reconstructive Surgery
DX: D50.8 Other iron deficiency anemias (principal); K91.2 Postsurgical malabsorption, not elsewhere classified; E89.1 Postprocedural hypoinsulinemia; E44.0 Moderate protein-calorie malnutrition; E44.1 Mild protein-calorie malnutrition; E45 Retarded development following protein-calorie malnutrition; E55.9 Vitamin D deficiency, unspecified; K74.1 Hepatic sclerosis; T56.894A Toxic effect of other metals, undetermined, initial encounter; K50.90 Crohn's disease, unspecified, without complications
CPT/HCPCS: 36415; 80053; 80061; 82306; 82525; 82607; 82728; 82746; 83036; 83540; 83550; 83735; 83970; 84100; 84134; 84255; 84425; 84443; 84590; 84630; 85027; 85610; 85730

== ENCOUNTER → 2023-01-03 | Outpatient (CLI) | payer OTHER | END | disposition home or self-care (01) | LOC: LABWHC1 14:54 | PROVIDERS: ATTEND Surgery Plastic and Reconstructive Surgery | DX: E66.01 Morbid (severe) obesity due to excess calories (principal); E50.8 Other manifestations of vitamin A deficiency; K91.2 Postsurgical malabsorption, not elsewhere classified; E44.0 Moderate protein-calorie malnutrition; E44.1 Mild protein-calorie malnutrition; E45 Retarded development following protein-calorie malnutrition; E55.9 Vitamin D deficiency, unspecified; K74.1 Hepatic sclerosis; N19 Unspecified kidney failure; T56.894A Toxic effect of other metals, undetermined, initial encounter; K50.90 Crohn's disease, unspecified, without complications | CPT/HCPCS: 36415; 82746 ==

== ENCOUNTER → 2023-03-06 | Outpatient (CLI) | payer OTHER ==
--- NOTE | 2023-03-06 14:14 | P.BASOAP ---
Subjective Progress Note Date: 03/06/23 DATE OF SERVICE: 03/06/23 CHIEF COMPLAINT: Status post sleeve gastrectomy HISTORY OF PRESENT ILLNESS: Kerry Jones is a 48-year-old female status post sleeve gastrectomy, 09/10/22. She is 6 months postop. Her BMI is normal after 6 months. She has reached her target. Protein intake is optimal and she uses protein drinks. She is getting 70 grams daily. "I feel great." She has bowel movements daily. She reports mild hair loss. She has lost 109 pounds. She denies dysphagia. She denies gastroesophageal reflux disease. She feels great. At height of 5 feet 5.5 inches, her ideal body weight is 149 pounds. She comes in 150 pounds from 185 pounds, 3 months ago. She has lost 35 pounds in 3 cindy hs. Her body mass index is 24.6. Her highest weight is 270 pounds, body mass index 44.4. Lifetime weight loss 120 pounds. Lifetime percent excess weight loss 99%. PHYSICAL EXAM: VITAL SIGNS: Height 5 foot 5.5 inches, weight 150 pounds. BMI 24.6 Vital Signs Temp 97.6 F 03/06/23 14:02 Pulse 108 H 03/06/23 14:02 Resp BP 128/82 03/06/23 14:02 Pulse Ox FiO2 GENERAL: Well-developed in no acute distress. HEENT: No scleral icterus. Extraocular movements grossly intact. Hears conversational speech. No nasal drainage. NECK: Supple without lymphadenopathy. CHEST: Nonlabored respirations with equal bilateral excursions. CARDIOVASCULAR: Distal 2+ pulses. ABDOMEN: Obese, soft, nontender, nondistended. MUSCULOSKELETAL: No clubbing, cyanosis. NEURO: No focal or lateralizing signs. Cranial nerves 2 through 12 grossly within normal limits. PSYCH: Appropriate affect. Alert and oriented to person, place and time. SKIN: Good skin turgor. Well perfused. ASSESSMENT: 1. Morbid obesity due to excess calories 2. Body mass index of 44.4 down to 24.6 3. Diabetes type 2 [id number] 4. Hyperlipidemia 5. Depressive disorder 6. Osteoarthritis bilateral hip. 7. Osteoarthritis ankles 8. History of breast cancer PLAN: 1. Recommend protein intake 75 g daily. 2. Recommend bariatric labs Objective - Vital Signs Vital signs: Vital Signs Temp 97.6 F 03/06/23 14:02 Pulse 108 H 03/06/23 14:02 Resp BP 128/82 03/06/23 14:02 Pulse Ox FiO2 Intake & Output 03/05/23 03/06/23 03/06/23 18:59 06:59 18:59 Weight 68.039 kg Assessment/Plan Plan: Date: 03/06/23 Initial Weight: Initial BMI: Current Weight: 68.039 kg Current BMI: 24.5 Type of Surgery: Total Volume in Band: Previous Volume: Volume Removed: Volume Added: Band Size:
[2023-03-06 14:30] VITALS: BP 128/82; PULSE 108; TEMP 97.6; BMI 24.5
== END ==
LOC: BARWHC3 13:41
PROVIDERS: ATTEND Surgery Plastic and Reconstructive Surgery
DX: E66.01 Morbid (severe) obesity due to excess calories (principal); E89.1 Postprocedural hypoinsulinemia; D50.8 Other iron deficiency anemias; K90.89 Other intestinal malabsorption; E55.9 Vitamin D deficiency, unspecified; N19 Unspecified kidney failure; T56.894A Toxic effect of other metals, undetermined, initial encounter; K74.1 Hepatic sclerosis; K50.90 Crohn's disease, unspecified, without complications; E11.9 Type 2 diabetes mellitus without complications; E78.5 Hyperlipidemia, unspecified; F32.A Depression, unspecified; M16.0 Bilateral primary osteoarthritis of hip; M19.071 Primary osteoarthritis, right ankle and foot; M19.072 Primary osteoarthritis, left ankle and foot; Z71.3 Dietary counseling and surveillance; Z85.3 Personal history of malignant neoplasm of breast; Z68.24 Body mass index [BMI] 24.0-24.9, adult
CPT/HCPCS: 97803; G0463; 99211

== ENCOUNTER → 2023-03-11 | Outpatient (CLI) | payer OTHER ==
[2023-03-12 03:05] LABS: Prealbumin 20.9 mg/dL (18.0-42.0)
[2023-03-12 05:44] LABS: Chol/HDL Ratio 4.54 Ratio; Magnesium 2.3 mg/dL (1.5-2.4); Phosphorus 3.3 mg/dL (2.4-5.1)
[2023-03-12 05:45] LABS: % Iron Saturation 24.73 (12.00-45.00); ALT 15 U/L (8-44); AST 24 U/L (13-35); Albumin/Globulin Ratio 1.92 Ratio (1.60-3.17); Alkaline Phosphatase 75 U/L (41-126); BUN/Creat Ratio 20.71 Ratio (12.00-20.00); Blood Urea Nitrogen 14.5 mg/dL (9.0-27.0); Carbon Dioxide 17.5 mmol/L (21.6-31.8); Chloride 100 mmol/L (96-109); Globulin 2.6 g/dL (1.6-3.3); Glucose 59 mg/dL (70-110); Iron 92 UG/DL (50-170); LDL Cholesterol,Calculated 178.9 mg/dL (0.0-131.0); Sodium 136 mmol/L (135-145); Total Bilirubin 0.5 mg/dL (0.3-1.2); Total Iron Binding Capacity 372 UG/DL (228-460); Total Protein 7.6 g/dL (6.2-8.2)
== END | disposition home or self-care (01) ==
LOC: LABWHC1 12:37
PROVIDERS: ATTEND Surgery Plastic and Reconstructive Surgery
DX: E66.01 Morbid (severe) obesity due to excess calories (principal); D50.9 Iron deficiency anemia, unspecified; K91.2 Postsurgical malabsorption, not elsewhere classified; E44.0 Moderate protein-calorie malnutrition; E44.1 Mild protein-calorie malnutrition; E45 Retarded development following protein-calorie malnutrition; E55.9 Vitamin D deficiency, unspecified; K74.1 Hepatic sclerosis; N19 Unspecified kidney failure; T56.894A Toxic effect of other metals, undetermined, initial encounter; K50.90 Crohn's disease, unspecified, without complications
CPT/HCPCS: 36415; 80053; 80061; 82306; 82607; 82728; 82746; 83540; 83550; 83735; 84100; 84134; 84443

== ENCOUNTER → 2023-04-03 | Outpatient (CLI) | payer OTHER ==
[2023-04-03 12:45] LABS: HCT 44.6 % (34.0-46.0); HGB 14.6 gm/dL (11.4-16.0); MCH 29.3 pg (25.0-35.0); MCHC 32.8 g/dL (31.0-37.0); MCV 89.5 fL (80.0-100.0); Mean Platelet Volume 7.9; Platelet Count 308 k/uL (150-450); RBC 4.99 m/uL (3.80-5.40); RDW 13.6 % (11.5-15.5); WBC 5.4 k/uL (3.8-10.6)
[2023-04-03 12:54] LABS: Partial Thromboplastin Time 24.8 sec (22.0-30.0); Prothrombin Time 10.7 sec (10.0-12.5)
[2023-04-03 12:55] LABS: ALT 16 U/L (4-34); AST 24 U/L (14-36); African American GFR (CKD) >90 (>60 ml/min/1.73 sqM); Albumin 4.7 g/dL (3.5-5.0); Alkaline Phosphatase 75 U/L (38-126); Anion Gap 10 mmol/L; Blood Urea Nitrogen 18 mg/dL (7-17); Calcium 10.5 mg/dL (8.4-10.2); Carbon Dioxide 20 mmol/L (22-30); Chloride 106 mmol/L (98-107); Glucose 88 mg/dL (74-99); Magnesium 2.1 mg/dL (1.6-2.3); Non-African American GFR(CKD) >90 (>60 ml/min/1.73 sqM); Phosphorus 4.8 mg/dL (2.5-4.5); Potassium 4.4 mmol/L (3.5-5.1); Sodium 136 mmol/L (137-145); Total Bilirubin 0.6 mg/dL (0.2-1.3); Total Protein 7.3 g/dL (6.3-8.2)
[2023-04-03 17:40] LABS: % Iron Saturation 23.17 (12.00-45.00); Chol/HDL Ratio 3.74 Ratio; Iron 73 UG/DL (50-170); LDL Cholesterol,Calculated 140.9 mg/dL (0.0-131.0); Total Iron Binding Capacity 315 UG/DL (228-460)
[2023-04-03 18:30] LABS: Prealbumin 21.8 mg/dL (18.0-42.0)
== END | disposition home or self-care (01) ==
LOC: LABWHC1 11:44
PROVIDERS: ATTEND Surgery Plastic and Reconstructive Surgery
DX: E66.01 Morbid (severe) obesity due to excess calories (principal); E89.1 Postprocedural hypoinsulinemia; D50.8 Other iron deficiency anemias; K91.2 Postsurgical malabsorption, not elsewhere classified; E44.0 Moderate protein-calorie malnutrition; E45 Retarded development following protein-calorie malnutrition; E46 Unspecified protein-calorie malnutrition; E44.1 Mild protein-calorie malnutrition; E55.9 Vitamin D deficiency, unspecified; K74.1 Hepatic sclerosis; K50.90 Crohn's disease, unspecified, without complications
CPT/HCPCS: 80053; 80061; 82306; 82525; 82607; 82728; 82746; 83036; 83540; 83550; 83735; 83970; 84100; 84134; 84255; 84425; 84443; 84590; 84630; 85027; 85610; 85730

== ENCOUNTER → 2023-06-26 | Outpatient (CLI) | payer OTHER ==
--- NOTE | 2023-06-26 15:58 | P.BASOAP ---
Subjective Progress Note Date: 06/26/23 She lost over 120 pounds. She is doing well. No further nasuea. She lost 17 pounds on medications. Highest 275 pounds. She is doing very well. NO GERD. She is happy where she is. Hands and feet are smaller. She is doing well. She is getting 75 grams. Assessment/Plan Plan: Date: Initial Weight: Initial BMI: Current Weight: Current BMI: Type of Surgery: Total Volume in Band: Previous Volume: Volume Removed: Volume Added: Band Size:
[2023-06-26 16:15] VITALS: BP 122/83; PULSE 69; RESP 16; TEMP 98.1; BMI 22.7
== END ==
LOC: BARWHC3 13:57
PROVIDERS: ATTEND Surgery Plastic and Reconstructive Surgery
DX: E66.01 Morbid (severe) obesity due to excess calories (principal); Z71.3 Dietary counseling and surveillance; Z98.84 Bariatric surgery status; Z90.3 Acquired absence of stomach [part of]; Z68.22 Body mass index [BMI] 22.0-22.9, adult
CPT/HCPCS: 97803; G0463; 99211

== ENCOUNTER → 2023-07-18 | Outpatient (CLI) | payer OTHER ==
[2023-07-18 15:06] LABS: INR 0.9 (<1.2); Partial Thromboplastin Time 23.7 sec (22.0-30.0); Prothrombin Time 10.5 sec (10.0-12.5)
[2023-07-18 18:08] LABS: HCT 39.4 % (37.2-46.3); MCH 29.6 pg (27.0-32.0); MCV 89.7 FL (80.0-97.0); Mean Platelet Volume 9.7 FL (9.5-12.2); NRBC Per 100 WBC 0 X 10*3/uL (0.00-0.01); Platelet Count 360 X 10*3/uL (140-440); RBC 4.39 X 10*6/uL (4.10-5.20)
[2023-07-18 18:33] LABS: Prealbumin 25.4 mg/dL (18.0-42.0)
[2023-07-18 18:48] LABS: Chol/HDL Ratio 4.22 Ratio; LDL Cholesterol,Calculated 174.4 mg/dL (0.0-131.0)
[2023-07-18 18:49] LABS: ALT 20 U/L (8-44); AST 20 U/L (13-35); Albumin 4.7 g/dL (3.8-4.9); Albumin/Globulin Ratio 2.35 Ratio (1.60-3.17); Alkaline Phosphatase 74 U/L (41-126); Blood Urea Nitrogen 25.8 mg/dL (9.0-27.0); Calcium 10.2 mg/dL (8.7-10.3); Carbon Dioxide 22.4 mmol/L (21.6-31.8); Chloride 101 mmol/L (96-109); Glucose 87 mg/dL (70-110); Iron 87 UG/DL (50-170); Potassium 4.2 mmol/L (3.5-5.5); Sodium 138 mmol/L (135-145); Total Bilirubin 0.3 mg/dL (0.3-1.2); Total Iron Binding Capacity 364 UG/DL (228-460); Total Protein 6.7 g/dL (6.2-8.2)
[2023-07-19 13:27] LABS: Zinc, Serum 88 ug/dL (60-130)
== END | disposition home or self-care (01) ==
LOC: LABWHC1 13:49
PROVIDERS: ATTEND Surgery Plastic and Reconstructive Surgery
DX: E66.01 Morbid (severe) obesity due to excess calories (principal); E89.1 Postprocedural hypoinsulinemia; D50.8 Other iron deficiency anemias; K91.2 Postsurgical malabsorption, not elsewhere classified; E44.0 Moderate protein-calorie malnutrition; E44.1 Mild protein-calorie malnutrition; E45 Retarded development following protein-calorie malnutrition; E55.9 Vitamin D deficiency, unspecified; K74.1 Hepatic sclerosis; N19 Unspecified kidney failure; T56.894A Toxic effect of other metals, undetermined, initial encounter; K50.90 Crohn's disease, unspecified, without complications
CPT/HCPCS: 36415; 80053; 80061; 82306; 82525; 82607; 82728; 82746; 83036; 83540; 83550; 83735; 83970; 84100; 84134; 84255; 84425; 84443; 84590; 84630; 85027; 85610; 85730

== ENCOUNTER → 2023-10-31 | Outpatient (CLI) | payer SELFPAY ==
--- NOTE | 2023-11-01 08:57 | USB ---
Reason for Exam: Clinical finding. Indicated Problems: Lump or thickening of the right side for 1 Month(s). Patient History: Menarche at age 10. First Full-Term at age 23. 2009, Bilateral Implants. Risk Values: Corry 5 year model risk: 0.9%. NCI Lifetime model risk: 8.9%. Technique: Method: Targeted. Doppler: Color. Patient Position: Supine. Prior Study Comparison: 11/18/2019 Bilateral Diagnostic Mammogram, [facility]. Findings: The area of palpable concern of the right breast was scanned. Ultrasound right breast to the palpable area upper inner quadrant 12:00 to 2:00. At the 2:00 palpable site, there is a vague echogenic area containing a tiny internal 4 mm cyst. The entire region measures 1.4 x 1.2 x 0.8 cm. A couple additional round anechoic areas are present just deep to the skin surface measuring 5 mm and 3 mm but without any significant posterior enhancement suggesting well cysts. Overall Assessment: Probably benign, BI-RAD 3 Management: Diagnostic Breast Ultrasound of the right breast in 1 year. Palpable area in the right breast most likely corresponds to an area of fat necrosis. A couple additional small oil cysts are present in the adjacent parenchyma measuring up to 5 mm. Given patient's personal history of breast cancer, short follow-up in 4 weeks to 6 weeks can be performed. Results were given to the patient verbally at the time of exam. Electronically signed and approved by: Per Swanson M.D. Radiologist
== END | disposition home or self-care (01) ==
LOC: RADUSWWP 09:08
PROVIDERS: ATTEND Internal Medicine Hematology & Oncology
DX: C50.312 Malignant neoplasm of lower-inner quadrant of left female breast (principal)

== ENCOUNTER → 2024-01-24 | Outpatient (CLI) | payer SELFPAY ==
[~2024-01-24] MED LIST changes: -IRON SUCROSE 300 MG in SODIUM CHLORIDE 0.9% 250 ML IVPB NR; +SODIUM CHLORIDE 0.9% 250 ML in EMPTY BAG 1 BAG IV PRN; -SODIUM CHLORIDE 0.9% 500 ML 500 ML in EMPTY BAG 1 BAG IV PRN
[2024-01-24 13:42] VITALS: BP 114/76; PULSE 87; RESP 16; TEMP 98.1
[2024-01-24] MEDS: SODIUM CHLORIDE 0.9% 500 ML 500 ML in EMPTY BAG 1 BAG IV PRN (13:43)
[2024-01-24] MEDS: ZOLEDRONIC ACID 4 MG in SODIUM CHLORIDE 0.9% 100 ML IV NR (13:57)
== END ==
LOC: PROCWHC3 12:51
PROVIDERS: ATTEND Internal Medicine Hematology & Oncology
DX: C50.312 Malignant neoplasm of lower-inner quadrant of left female breast (principal)
CPT/HCPCS: 96365; J3489